=== PATIENT | male | born 1975 | race Caucasian/White ===

== ENCOUNTER 2016-11-25 10:21 | Emergency (ER) | payer OTHER, BC ==
[~2016-11-25 10:21] MED LIST: CYAN10005 PO; FLUT0.15 NAE; LCHC12280 TOP; LEVO-14 PO; MRLP17 PO; PHEN1TAB86 PO; [UNRECOGNIZED DRUG - CODE] OTB
[2016-11-25 10:30] VITALS: TEMP 37.1
--- NOTE | 2016-11-25 10:52 | EMERGENCY ROOM VISIT NOTE ---
History Report prepared by Tasia: Lucille Carter Under the Supervision of: Dr. Rao Ribeiro M.D. First contact with patient: 10:35 Chief Complaint: GI ASSESSMENT Stated Complaint: POSSIBLE BOWEL OBSTRUCTION Nursing Triage Summary: Triage note: pt presesnts with caregiver who reports pt has had left abd pain since this am. caregiver reports that pt has been having bowel and bladder incontience which is not normal for him. caregive reports pt has had hx of bowel obstructions. pt had stool incontinece this am. History of Present Illness The patient is a 41 year old male arriving from [facility] who presents to the Emergency Room with complaints as per caregiver of an exacerbation of pain to his left abdomen upon waking up this morning. Per caregiver, the patient recently visited the ED on November 03 and was admitted to the hospital as he was diagnosed with a bowel obstruction. During his visit, the patient was treated with enemas, and he has been taking MiraLAX since that time. Per caregiver, upon waking up this morning, the patient was incontinent of stool and was complaining of pains to his left abdomen, which she states is similar to when he experienced the bowel obstruction, so he was brought to the ED for further evaluation. Caregiver denies recent fevers, chills, chest pain, nausea, vomiting, or urinary symptoms. Source of History: caregiver Onset: earlier this morning Position: abdomen Timing: other (exacerbation) Modifying Factors (Relieving): other (No relief with MiraLAX) Associated Symptoms: + abdominal pain, No SOB, No chest pain, No chills, No fevers, No nausea, No urinary symptoms, No vomiting Note: Patient was incontinent of stool this morning. Review of Systems See HPI for pertinent positives & negatives. A total of 10 systems reviewed and were otherwise negative. Past Medical & Surgical Medical Problems: (1) Bowel obstruction (2) Fecal impaction (3) Obstipation Social History Smoking Status: Never Smoker Marital Status: single Housing Status: lives with roommate Occupation Status: disabled Current/Historical Medications Scheduled Carbamide Peroxide (Otic) (Ear Drops Earwax Removal), 5-10 DROPS OTB WK Cyanocobalamin (Vitamin B-12), 1,000 MCG PO DAILY Fluticasone Propionate (Nasal) (Flonase Allergy Relief), 1 SPRAY WOLFGANG DAILY Lactic Acid (Ammonium Lactate) (Ammonium Lactate), 1 APPLN TOP BID Levocetirizine Dihydrochloride (Levocetirizine Dihydrochl), 1 TAB PO DAILY Phenobarbital (Phenobarbital), 125.6 MG PO HS Polyethylene (Miralax), 17 GM PO BID Allergies Coded Allergies: NO KNOWN DRUG ALLERGIES (Verified Allergy, Unknown, `, 11/25/16) Physical Exam Vital Signs Date Time Temp Pulse Resp B/P Pulse Ox O2 Delivery O2 Flow Rate FiO2 11/25/16 12:39 80 18 130/85 100 11/25/16 10:30 37.1 73 18 123/83 99 Room Air Physical Exam GENERAL: Patient is a healthy-appearing well-nourished 41 year old male. HEAD: Normocephalic atraumatic EYES: Ocular movements intact pupils equal and react to light OROPHARYNX mucous membranes are moist no exudates present no erythema or edema present NECK: Supple no nuchal rigidity CHEST: Good equal expansion LUNGS: Clear and equal to auscultation CARDIAC: Normal S1 and S2 ABDOMEN: Soft nontender no guarding BACK: No CVA tenderness EXTREMITIES: No pain upon palpation normal muscle strength in all groups no clubbing cyanosis or edema NEURO: Patient is following commands is answering questions appropriately. Alert and oriented x3 Cranial Nerves 2-12 grossly intact Medical Decision & Procedures ER Provider Diagnostic Interpretation: X-ray results as stated below per interpretation by me and the radiologist: ABDOMEN 2VIEW W/PA CHEST RTN CLINICAL HISTORY: Small bowel obstruction COMPARISON STUDY: 11/05/2016 FINDINGS: The erect chest reveals no free intraperitoneal air. The heart is enlarged. There is bibasilar interstitial thickening. There is persistent but decreasing colonic distention. There is moderate fecal retention. There are scattered air-fluid levels on the erect study. IMPRESSION: 1. Persistent but decreasing gaseous distention of the colon 2. No free air identified 3. Fecal retention Electronically signed by: Hi June M.D. 11/25/2016 11:07 AM Dictated Date/Time: 11/25/2016 11:05 AM Medications Administered Medications (Trade) Dose Ordered Sig/Melva Route Start Time Stop Time Status Last Admin Dose Admin Magnesium Citrate (Citrate Of Magnesia Soln) 296 ml NOW STAT PO 11/25/16 12:10 11/25/16 12:11 DC 11/25/16 12:37 296 ML ED Course 1041: Past medical records reviewed. The patient was evaluated in room C3. A complete history and physical examination was performed. 1210: Magnesium Citrate 296 ml PO was ordered. 1215: Upon reevaluation, the patient was doing well and appeared to be resting more comfortably. I updated his caregiver on the results of his radiology reports. Discharge instructions were also discussed at this time. She verbalized her understanding and agreement with the treatment plan, and the patient is now ready for disposition. Medical Decision Differential diagnosis: Etiologies such as appendicitis, diverticulitis, PUD, biliary pathology, UTI, pancreatitis, obstruction, mesenteric ischemia, aortic pathology, infections, inflammatory bowel disease, renal colic, as well as others were entertained. This is a 41-year-old male who presents emergency department complaining of what appears to be abdominal discomfort. Serial abdominal examinations were performed on the patient while he was in the emergency department and no tended the patient exhibited a surgical abdomen or tenderness on examination. I had multiple talks with both the caregiver as well as the patient's father. As the patient has no evidence of small bowel obstruction on his x-ray we are going to attempt to try magnesium citrate to cleanout the patient. The patient will return if he develops abdominal pain or is unable to tolerate the magnesium citrate. I also stressed the need for follow-up with gastroenterology. Patient was in agreement with the treatment plan. Impression Primary Impression: Constipation Scribe Attestation The scribe's documentation has been prepared under my direction and personally reviewed by me in its entirety. I confirm that the note above accurately reflects all work, treatment, procedures, and medical decision making performed by me. Departure Information Dispostion Home / Self-Care Referrals Selam Cedillo C.R.N.P. (PCP) Forms HOME CARE DOCUMENTATION FORM, IMPORTANT VISIT INFORMATION Patient Instructions ED Constipation, ED Diet Clear Liquid, [facility] Additional Instructions Take 1/2 bottle of Mag Citrate Repeat second half in six hours Clear liquid diet next 48 hours Follow up with Dr Perrin's office You have been examined and treated today on an emergency basis only. This is not a substitute for, or an effort to provide, complete comprehensive medical care. It is impossible to recognize and treat all injuries or illnesses in a single emergency department visit. It is therefore important that you follow up closely with your PCP. Call as soon as possible for an appointment. Thank you for your time and consideration. I look forward to speaking with you again soon. Please don't hesitate to call us if you have any questions. Problem Qualifiers Primary Impression: Constipation Constipation type: unspecified constipation type Qualified Codes: K59.00 - Constipation, unspecified
--- NOTE | 2016-11-25 11:09 | DIAGNOSTIC IMAGING REPORT ---
ABDOMEN 2VIEW W/PA CHEST RTN CLINICAL HISTORY: Small bowel obstruction COMPARISON STUDY: 11/05/2016 FINDINGS: The erect chest reveals no free intraperitoneal air. The heart is enlarged. There is bibasilar interstitial thickening. There is persistent but decreasing colonic distention. There is moderate fecal retention. There are scattered air-fluid levels on the erect study. IMPRESSION: 1. Persistent but decreasing gaseous distention of the colon 2. No free air identified 3. Fecal retention Electronically signed by: Hi June M.D. 11/25/2016 11:07 AM Dictated Date/Time: 11/25/2016 11:05 AM
[2016-11-25] MEDS ORDERED: LACT12LO28 TOP (11:19)
[2016-11-25] MEDS ORDERED: MAGNESIUM CITRATE 296 ML/BTL PO STA (12:10)
[2016-11-25 12:39] VITALS: BP 130/85; PULSE 80; O2SAT 100
[2017-01-04] MEDS ORDERED: PHENOBARBITAL PO (13:53)
[2017-01-04] MEDS ORDERED: POLY335019 PO (13:53)
[2017-01-12] MEDS ORDERED: PRVDB TOP (09:01)
[2017-01-22] MEDS ORDERED: HYDR-5688 PO (08:25)
== END 2016-11-25 12:35 | disposition home or self-care (01) ==
LOC: C.EDB 10:23 → C.EDC 12:35
DX: K59.00 Constipation, unspecified (principal); Z79.899 Other long term (current) drug therapy

== ENCOUNTER → 2016-11-30 | Day surgery (SDC) | payer OTHER, BC ==
[~2016-11-30] VITALS: Ht 160 cm; Wt 93.0 kg
[~2016-11-30] MED LIST changes: +ENDOSCOPIC MARKER 5 ML SYR ONE; +HYDR-5688 PO; +LACT12LO28 TOP; -LCHC12280 TOP; +LIDOCAINE HCL 2% 2 ML VIAL (20MG/ML) ONE; +MIDAZOLAM HCL 1 MG/ML 2ML VIAL ONE; +ONDANSETRON INJ 2 MG/ML 2 ML VIAL ONE; +PHENOBARBITAL PO; +POLY335019 PO; +PROPOFOL IV EMULSION 10 MG/ML 20 ML VIAL IV ONE; +PRVDB TOP; +SODIUM CHLORIDE 0.9% 500ML 500 ML IV ONE
[2016-11-30 10:56] VITALS: Ht 160 cm; Wt 93.0 kg
--- NOTE | 2016-11-30 11:08 | Endo History and Physical ---
History & Physical Date of Service: Nov 30, 2016. Chief Complaint: Change in bowel habits Referring Physician: ANALILIA Kan History of Present Illness 41 yo CM who presents for colonoscopy secondary to change in bowel habits. Past Surgical History Hx Cardiac Surgery: No Hx Internal Defibrillator: No Hx Pacemaker: No Hx Abdominal Surgery: No Hx of Implantable Prosthesis: No Hx Post-Op Nausea and Vomiting: No Hx Cancer Surgery: No Hx Thoracic Surgery: No Hx Orthopedic: No Hx Urinary Tract Surgery: No Social History Smoking Status: Never Smoker Hx Alcohol Use: No Allergies Coded Allergies: NO KNOWN DRUG ALLERGIES (Verified Allergy, Unknown, `, 11/30/16) Current Medications Reported Home Medications Medications Dose Route/Sig Max Daily Dose Days Date Category Dose Instructions Ammonium Lactate (Lactic Acid (Ammonium Lactate)) 12 % Lot 1 Appln TOP BID 11/25/16 Reported Miralax (Polyethylene) 17 Gm Pow 17 Gm PO BID 30 11/05/16 Rx Take after meals. Vitamin B-12 (Cyanocobalamin) 1,000 Mcg Tab 1,000 Mcg PO DAILY 11/03/16 Reported Ear Drops Earwax Removal (Carbamide Peroxide (Otic)) 6.5 % Suzanne 5-10 Drops OTB WK 11/03/16 Reported Phenobarbital 60 Mg Tab 125.6 Mg PO HS 11/03/16 Reported Levocetirizine Dihydrochl (Levocetirizine Dihydrochloride) 5 Mg Tab 1 Tab PO DAILY 30 11/03/16 Reported Flonase Allergy Relief (Fluticasone Propionate (Nasal)) 50 Mcg/Act Spr 1 [place] WOLFGANG DAILY 11/03/16 Reported Vital Signs Weight (Kilograms): 93 Height (Feet): 5 Height (Inches): 3 Physical Exam General Appearance: WD/WN, no apparent distress Respiratory/Chest: Auscultation: breath sounds normal Cardiovascular: Heart Auscultation: RRR Abdomen: Bowel Sounds: normal Inspection & Palpation: soft, non-distended, no tenderness, guarding & rebound Assessment and Plan Assessment: 41 yo CM who presents for colonoscopy secondary to change in bowel habits. Plan: Proceed with colonoscopy.
[2016-11-30 11:16] VITALS: TEMP 36.6
--- NOTE | 2016-11-30 12:37 | GI REPORT ---
Procedure Date: 11/30/2016 11:35 AM Procedure: Colonoscopy Indications: Change in bowel habits Medicines: Monitored Anesthesia Care Complications: No immediate complications. Estimated Blood Loss: Estimated blood loss: none. Procedure: Pre-Anesthesia Assessment: - Prior to the procedure, a History and Physical was performed, and patient medications and allergies were reviewed. The patient's tolerance of previous anesthesia was also reviewed. The risks and benefits of the procedure and the sedation options and risks were discussed with the patient. All questions were answered, and informed consent was obtained. Prior Anticoagulants: The patient has taken no previous anticoagulant or antiplatelet agents. ASA Grade Assessment: II - A patient with mild systemic disease. After reviewing the risks and benefits, the patient was deemed in satisfactory condition to undergo the procedure. After I obtained informed consent, the scope was passed under direct vision. Throughout the procedure, the patient's blood pressure, pulse, and oxygen saturations were monitored continuously. The Scope was introduced through the anus and advanced to the terminal ileum. The colonoscopy was performed without difficulty. The patient tolerated the procedure well. The quality of the bowel preparation was fair. The ileocecal valve, appendiceal orifice, and rectum were photographed. Findings: A polypoid partially obstructing large mass was found at the hepatic flexure. The mass was non-circumferential. The mass measured three cm in length. In addition, its diameter measured twenty-five mm. No bleeding was present. This was biopsied with a cold forceps for histology. Area was tattooed with an injection of 5 mL of Geri ink. Impression: - Rule out malignancy, partially obstructing tumor at the hepatic flexure. Biopsied. Tattooed. Recommendation: - Resume previous diet. - Continue present medications. - Await pathology results. - Perform a CT scan (computed tomography) of chest with contrast, abdomen with contrast and pelvis with contrast at appointment to be scheduled. - Check liver enzymes (AST, ALT, alkaline phosphatase, bilirubin), hemogram with white blood cell count and platelets and CEA in the morning. - Refer to a surgeon at appointment to be scheduled. Stanton Guthrie DO 11/30/2016 12:37:30 PM This report has been signed electronically. Note Initiated On: 11/30/2016 11:35 AM
--- NOTE | 2016-11-30 12:47 | Discharge Instructions ---
Endoscopy Patient Instructions Date / Procedure(s) Performed Nov 30, 2016. Colonoscopy Allergy Information Coded Allergies: NO KNOWN DRUG ALLERGIES (Verified Allergy, Unknown, `, 11/30/16) Discharge Date / Findings Nov 30, 2016. Polypoid mass at hepatic flexure Medication Instructions Decrease Miralax to 17 g in 8 oz glass of water daily Otherwise, resume all medications today as prescribed. Reported Home Medications Medications Dose Route/Sig Max Daily Dose Days Date Category Dose Instructions Ammonium Lactate (Lactic Acid (Ammonium Lactate)) 12 % Lot 1 Appln TOP BID 11/25/16 Reported Miralax (Polyethylene) 17 Gm Pow 17 Gm PO BID 30 11/05/16 Rx Take after meals. Vitamin B-12 (Cyanocobalamin) 1,000 Mcg Tab 1,000 Mcg PO DAILY 11/03/16 Reported Ear Drops Earwax Removal (Carbamide Peroxide (Otic)) 6.5 % Suzanne 5-10 Drops OTB WK 11/03/16 Reported Phenobarbital 60 Mg Tab 125.6 Mg PO HS 11/03/16 Reported Levocetirizine Dihydrochl (Levocetirizine Dihydrochloride) 5 Mg Tab 1 Tab PO DAILY 30 11/03/16 Reported Flonase Allergy Relief (Fluticasone Propionate (Nasal)) 50 Mcg/Act Spr 1 [place] WOLFGANG DAILY 11/03/16 Reported Provider Instructions Activity Restrictions - No exercising or heavy lifting for 24 hours. - Do not drink alcohol the day of the procedure. - Do not drive a car or operate machinery until the day after the procedure. - Do not make any important decisions or sign important papers in 24 hours after the procedure. Following Day: - Return to full activity which may include returning to work/school. Diet Start your diet with liquids and light foods (jello, soup, juice, toast). Then eat your usual diet if not nauseated. Treatment For Common After Affects For mild abdominal pain, bloating, or excessive gas: - Rest - Eat lightly - Lie on right side Follow-Up Information Follow-up with Yocasta as scheduled Anesthesia Information What You Should Know You have had a procedure that required some medicine to reduce anxiety and discomfort. This treatment is called moderate sedation. After receiving the treatment, you may be sleepy, but you will be able to breathe on your own. The effects of the treatment may last for several hours. Follow these instructions along with Activity/Diet recommendations noted above: * Do NOT do anything where dizziness or clumsiness would be dangerous. * Rest quietly at home today, then you can be up and about tomorrow. * Have a responsible person stay with you the rest of today. * You may have had an I.V. today. If so, you may take the dressing off later today. Recommendations Call your doctor if: * Trouble breathing * Continuous vomiting for more than 24 hours * Temperature above 101 degrees * Severe abdominal pain or bloating * Pain not relieved by pain medicine ordered * There is increased drainage or redness from any incision * A large amount of rectal bleeding greater than 2-3 tablespoons. (If you had a polyp/s removed or have hemorrhoids, a small amount of blood - from the rectum is to be expected.) * You have any unanswered questions or concerns. IN THE EVENT OF A SERIOUS EMERGENCY, GO TO THE NEAREST EMERGENCY ROOM Your discharge instructions were prepared by provider Stanton Guthrie. Patient Instructions Signature Page Adan Myrick Patient (or Guardian) Signature/Date: I have read and understand the instructions given to me by my caregivers. Caregiver/RN/Doctor Signature/Date: The above-named patient and/or guardian has received patient instructions on this date. + Original Patient Signature Page (only) stays with chart. Please make copy for patient.
[2016-11-30 13:08] VITALS: BP 157/82; PULSE 61; O2SAT 100
[2016-11-30 14:40] LABS: BASO % 0.2 %; BASO ABS # 0.01 K/uL (0-0.2); COMPLETE YES; EOS % 1.7 %; HEMATOCRIT 36.1 % (42-52); IG% 0.2 %; LYMPH % 17.8 %; LYMPH ABS # 0.83 K/uL (1.2-3.4); MEAN CELL VOLUME 93.5 fL (80-100); MEAN CORPUSCULAR HEMOGLOBIN 31.3 pg (25-34); MEAN CORPUSCULAR HGB CONC 33.5 g/dl (32-36); MEAN PLATELET VOLUME 11.7 fL (7.4-10.4); NEUT % 74.1 %; PLATELET COUNT 138 K/uL (130-400); RED BLOOD COUNT 3.86 M/uL (4.7-6.1); WHITE BLOOD COUNT 4.65 K/uL (4.8-10.8)
--- NOTE | 2016-11-30 15:12 | Anesthesiology Progress Note ---
Anesthesia Post Op Note Date & Time Nov 30, 2016 at 15:12 Vital Signs Pain Intensity: 0 Vital Signs Past 12 Hours Date Time Temp Pulse Resp B/P Pulse Ox O2 Delivery O2 Flow Rate FiO2 11/30/16 13:08 61 20 157/82 100 Room Air 11/30/16 12:42 55 20 117/68 100 Room Air 11/30/16 12:27 62 20 106/68 98 Room Air 11/30/16 11:16 36.6 68 20 122/75 99 Room Air Notes Mental Status: alert / awake / arousable, participated in evaluation Pt Amnestic to Procedure: Yes Nausea / Vomiting: adequately controlled Pain: adequately controlled Airway Patency, RR, SpO2: stable & adequate BP & HR: stable & adequate Hydration State: stable & adequate Anesthetic Complications: no major complications apparent
[2016-11-30 15:17] LABS: CALCIUM 8.6 mg/dl (8.5-10.1); CREATININE 0.75 mg/dl (0.60-1.40); POTASSIUM 3.1 mmol/L (3.5-5.1)
[2016-11-30 15:20] LABS: ALB/GLOB RATIO 1.3 (0.9-2)
== END | disposition home or self-care (01) ==
LOC: C.GI 10:33
PROVIDERS: ATTEND Internal Medicine
DX: D12.3 Benign neoplasm of transverse colon (principal); R19.4 Change in bowel habit

== ENCOUNTER → 2016-12-01 | Outpatient (CLI) | payer OTHER, BC ==
[~2016-12-01] MED LIST changes: -ENDOSCOPIC MARKER 5 ML SYR ONE; -LIDOCAINE HCL 2% 2 ML VIAL (20MG/ML) ONE; -MIDAZOLAM HCL 1 MG/ML 2ML VIAL ONE; -ONDANSETRON INJ 2 MG/ML 2 ML VIAL ONE; -PROPOFOL IV EMULSION 10 MG/ML 20 ML VIAL IV ONE; -SODIUM CHLORIDE 0.9% 500ML 500 ML IV ONE
--- NOTE | 2016-12-01 13:13 | DIAGNOSTIC IMAGING REPORT ---
CT OF THE CHEST WITH IV CONTRAST CLINICAL HISTORY: Colon mass. COMPARISON STUDY: No previous studies for comparison. TECHNIQUE: Following the IV administration of 93 mL of Optiray-320, CT of the thorax was performed from the thoracic inlet to the lung bases. Images are reviewed in the axial, sagittal, and coronal planes. IV contrast was administered without complication. CT DOSE: FINDINGS: Thyroid: Imaged portions of the thyroid gland are normal in appearance. Thoracic aorta: The thoracic aorta is normal in course and caliber, noting standard 3-vessel arch anatomy. No aneurysm or dissection is seen. Pulmonary vasculature: The pulmonary trunk is normal in caliber. There are no central filling defects identified to suggest pulmonary embolus. Note that this examination was not protocoled for the evaluation of pulmonary emboli. HEART: The heart is the upper limits of normal in size. Lungs and pleural spaces: There is respiratory motion artifact. There are no pleural effusions. There is no focal pulmonary consolidation. Mediastinum: There is no mediastinal lymphadenopathy. Adri: Clear. Axilla: Clear. There is bilateral gynecomastia. Upper abdomen: There is an area of nonspecific colonic wall thickening at the level of the splenic flexure. There are upper pole right renal calculi. Skeletal structures: There are no lytic or blastic osseous lesions. IMPRESSION: 1. No evidence of intrathoracic metastasis 2. Right-sided nephrolithiasis 3. Nonspecific colonic wall thickening at the level of the splenic flexure. Electronically signed by: Hi June M.D. 12/01/2016 1:11 PM Dictated Date/Time: 12/01/2016 1:07 PM
--- NOTE | 2016-12-01 13:24 | DIAGNOSTIC IMAGING REPORT ---
CT SCAN OF THE ABDOMEN AND PELVIS WITH IV CONTRAST CLINICAL HISTORY: Colonic mass. COMPARISON STUDY: Abdominal radiograph dated 11/25/2016. TECHNIQUE: Following the IV administration of 93 cc of Optiray 320, CT scan of the abdomen and pelvis is performed from the lung bases to the proximal femora. Images are reviewed in the axial, sagittal, and coronal planes. IV contrast was administered without complication. Automated dose control exposure was utilized. The examination is degraded by motion artifact. CT DOSE: 1424.99 mGy.cm FINDINGS: Lung bases: The heart is enlarged and there is a trace pericardial effusion. The lung bases are clear. Gynecomastia is noted. There is a moderate hiatal hernia. Liver: The contrast-enhanced liver is normal in contour and attenuation. The left lobe appears atretic. There is no intrahepatic biliary ductal dilatation. The hepatic veins and portal veins are patent. Gallbladder: Unremarkable. Spleen: Normal in size and attenuation. Pancreas: Atrophic for age. Adrenal glands: Unremarkable. Kidneys: The contrast enhanced kidneys the major cortical atrophy and are without hydronephrosis. The kidneys enhance symmetrically. Abdominal vasculature: The abdominal aorta is normal in course and caliber. Bowel: The cecum is located in the mid abdomen. There is no small bowel obstruction. There is liquid stool seen throughout the colon. A 3.6 x 3.3 cm mass is suspected in the ascending colon just below the hepatic flexure. This is best seen on axial image #182. Small pericolonic lymph nodes in the right upper quadrant measure up to 7 mm axial image #173. Circumferential rectal wall thickening is suggested. No perirectal inflammation is seen. The appendix is not identified and reported surgically absent. Peritoneum: There is no intraperitoneal free air or abdominal ascites. Lymphadenopathy: None. Pelvic viscera: The the bladder wall appears circumferentially thickened. There is a calcification identified both the bladder along the course of the urachus. The prostate and seminal vesicles are normal as visualized. There is a small fat-containing right inguinal hernia. Skeletal structures: 6 the skeletal structures appear osteopenic. Bilateral pars defects are seen at L5. No lytic or blastic lesions are identified. IMPRESSION: 1. Motion degraded examination. 2. A 3.6 cm mass lesion is suggested in the ascending colon just below the hepatic flexure with mildly enlarged surrounding pericolonic lymph nodes. Correlation with endoscopy results will be required. 3. There is no evidence of distended metastatic disease in the abdomen or pelvis. 4. There is no evidence of colonic obstruction of the time of examination. 5. Liquid stool is seen throughout the colon and circumferential rectal wall thickening is suspected. Correlate clinically for evidence of a diarrheal illness/proctitis. Again, correlation with endoscopy results will be required. 6. Moderate hiatal hernia. 7. Cardiomegaly. 8. Additional changes as above. Electronically signed by: Beto Jimenez M.D. 12/01/2016 1:22 PM Dictated Date/Time: 12/01/2016 1:10 PM
== END | disposition home or self-care (01) ==
LOC: C.CTS 10:48
PROVIDERS: ATTEND Internal Medicine
DX: K63.9 Disease of intestine, unspecified (principal); R93.3 Abnormal findings on diagnostic imaging of other parts of digestive tract; K44.9 Diaphragmatic hernia without obstruction or gangrene; I51.7 Cardiomegaly; N20.0 Calculus of kidney

== ENCOUNTER 2017-01-18 05:03 | Inpatient (IN) | payer OTHER, BC ==
[2017-01-04 13:32] VITALS: BMI 37.0
--- NOTE | 2017-01-04 14:04 | PAT Medication Instructions ---
Service Date Jan 04, 2017. Current Home Medication List Carbamide Peroxide (Otic) (Ear Drops Earwax Removal), 5-10 DROPS OTB WK Cyanocobalamin (Vitamin B-12), 1,000 MCG PO QAM Fluticasone Propionate (Nasal) (Flonase Allergy Relief), 1 SPRAY WOLFGANG QAM Lactic Acid (Ammonium Lactate) (Ammonium Lactate), 1 APPLN TOP BID Levocetirizine Dihydrochloride (Levocetirizine Dihydrochl), 1 TAB PO QAM Polyethylene Glycol 3350 (Miralax), 17 GM PO QAM [Phenobarbital], 129.6 MG PO HS Medication Instructions For Your Scheduled Surgery Carbamide Peroxide (Otic) (Ear Drops Earwax Removal), 5-10 DROPS OTB WK ( continue as usual) - Hold the following medications 24 hours prior to surgery: Lactic Acid (Ammonium Lactate) (Ammonium Lactate), 1 APPLN TOP BID - Hold the following medications the morning of surgery: Polyethylene Glycol 3350 (Miralax), 17 GM PO QAM Cyanocobalamin (Vitamin B-12), 1,000 MCG PO QAM Dihydrochloride (Levocetirizine Dihydrochl), 1 TAB PO QAM - Take the following medications the morning of surgery with a sip of water: Fluticasone Propionate (Nasal) (Flonase Allergy Relief), 1 SPRAY WOLFGANG QAM - Take the following medications as scheduled the night before surgery: [Phenobarbital], 129.6 MG PO HS If you have any questions please call us at [phone] or [phone] or [phone]
[2017-01-06 11:22] LABS: BUN/CREATININE RATIO 17.4 (10-20); CREATININE 0.81 mg/dl (0.60-1.40)
[~2017-01-18] VITALS: Ht 162.6 cm; Wt 90.0 kg
[2017-01-18] VITALS (9 sets, daily range): BP systolic 97–128; BP diastolic 62–81; PULSE 56–88; TEMP 36.5–37; O2SAT 91–97; Ht 162.6 cm; Wt 90.0 kg
[~2017-01-18 05:03] MED LIST changes: -HYDR-5688 PO; -MRLP17 PO; -PHEN1TAB86 PO
[2017-01-18] MEDS ORDERED: LACTATED RINGER'S 1000ML IV SCH (06:00)
[2017-01-18] MEDS ORDERED: CEFAZOLIN 2000 MG/60 ML D5W 60 ML IV SCH (06:00)
[2017-01-18] MEDS ORDERED: ACETAMINOPHEN 1000 MG/100 ML IV IV ONE (06:06)
[2017-01-18] MEDS: LACTATED RINGER'S 1000ML 1,000 ML IV SCH ×4 (06:07→20:08)
[2017-01-18] MEDS: HEPARIN SOD 5000 UNIT/0.5 ML CARP SQ SCH ×2 (06:09→13:00)
[2017-01-18] MEDS ORDERED: GLYCOPYRROLATE INJ 0.2 MG/ML VIAL ONE (06:18)
[2017-01-18] MEDS ORDERED: SUCCINYLCHOLINE CHLORIDE 20 MG/ML 10 ML VIAL IV ONE (06:18)
[2017-01-18] MEDS ORDERED: DEXAMETHASONE SOD INJ 4 MG/ML VIAL ONE (06:18)
[2017-01-18] MEDS ORDERED: ONDANSETRON INJ 2 MG/ML 2 ML VIAL ONE (06:18)
[2017-01-18] MEDS ORDERED: FENTANYL CITRATE INJ 50 MCG/1 ML 2 ML VIAL ONE (06:18)
[2017-01-18] MEDS ORDERED: ROCURONIUM BROMIDE 10 MG/ML 5 ML VIAL ONE ×2 (06:18→07:55)
[2017-01-18] MEDS ORDERED: NEOSTIGMINE METHYLSULFATE 5 MG/5 ML SYR ONE (06:18)
[2017-01-18] MEDS ORDERED: MIDAZOLAM HCL 1 MG/ML 2ML VIAL ONE (06:18)
[2017-01-18] MEDS ORDERED: PHENYLEPHRINE HCL INJ 10 MG/ML VIAL ONE (06:18)
[2017-01-18] MEDS ORDERED: EpHEDrine SULFATE INJ 50 MG/ML AMP ONE (06:18)
[2017-01-18] MEDS ORDERED: PROPOFOL IV EMULSION 10 MG/ML 20 ML VIAL IV ONE ×2 (06:18→07:55)
[2017-01-18] MEDS ORDERED: LIDOCAINE HCL 2% 2 ML VIAL (20MG/ML) ONE (06:18)
[2017-01-18] MEDS ORDERED: BUPIVACAINE/EPINEPHRINE 0.5% MPF 1:200,000 30 ML VIAL ONE (06:52)
--- NOTE | 2017-01-18 06:59 | History and Physical ---
History & Physical Date Jan 18, 2017. Chief Complaint right colon mass History of Present Illness The patient is a 41 year old male with newly found right colon mass on endoscopy. has been having some diarrhea and fecal incontinence which may be unrelated. Past Medical/Surgical History Medical Problems: (1) Bowel obstruction (2) Fecal impaction (3) Obstipation Additional History Hepatic Disease: No Endocrine Disorder: No Kidney Disease: No Hypertension: No Heart Disease: No Bleeding Tendencies: No Infectious Diseases: No Allergies Coded Allergies: Brompheniramine (Unverified Allergy, Unknown, UNKNOWN, 01/18/17) Phenylpropanolamine (Unverified Allergy, Unknown, UNKNOWN, 01/18/17) Home Medications Scheduled Carbamide Peroxide (Otic) (Ear Drops Earwax Removal), 5-10 DROPS OTB WK Cyanocobalamin (Vitamin B-12), 1,000 MCG PO QAM Fluticasone Propionate (Nasal) (Flonase Allergy Relief), 1 SPRAY [place] QAM Lactic Acid (Ammonium Lactate) (Ammonium Lactate), 1 APPLN TOP BID Levocetirizine Dihydrochloride (Levocetirizine Dihydrochl), 1 TAB PO QAM Polyethylene Glycol 3350 (Miralax), 17 GM PO QAM Sodium Fluoride (Prevident 5000 Booster), 1 DOSE TOP BID [Phenobarbital], 129.6 MG PO HS Physical Examination Skin: warm/dry Eyes: normal inspection Head: normocephalic Respiratory/Chest: lungs clear Cardiovascular: regular rate, rhythm, no edema Abdomen / GI: non tender Extremities: normal inspection Neurologic/Psych: + pertinent finding (moderated MR) Diagnosis right colon mass Plan of Treatment laparoscopic /possible open right hemicolectomy. discussed with family risks ( bleeding/infection/dvt/pe/leaks/possible return to OR etc...)...answered questions. ok to proceed
[2017-01-18] MEDS ORDERED: HYDROmorphone INJ 2 MG/ML SYR/VIAL IV PRN (07:15)
[2017-01-18] MEDS ORDERED: ATROPINE SULFATE 0.1 MG/ML 5ML SYR IV PRN (07:15)
[2017-01-18] MEDS ORDERED: EpHEDrine SULFATE INJ 50 MG/ML AMP IV PRN (07:15)
[2017-01-18] MEDS ORDERED: PHENYLEPHRINE 100MCG/ML 5ML SYR IV PRN (07:15)
[2017-01-18] MEDS ORDERED: ONDANSETRON INJ 2 MG/ML 2 ML VIAL IV PRN ×2 (07:15→10:15)
[2017-01-18] MEDS ORDERED: HYDROmorphone INJ 2 MG/ML SYR/VIAL ONE (07:45)
--- NOTE | 2017-01-18 10:05 | Medical Student: [facility] ---
Immediate Operative Summary Operative Date Jan 18, 2017. Pre-Operative Diagnosis colonic mass at hepatic flexure Post-Operative Diagnosis 1. colonic mass at hepatic flexure 2. dilated left colon Procedure(s) Performed laparoscopic right hemicolectomy converted to open hemicolectomy with ileocolonic anastamosis Surgeon Dr. Henderson [employer] Surgeon(s) none Estimated Blood Loss 25cc Findings decompressed transverse colon with dilated left colon, colonic adhesions Specimens terminal ileum, right colon, and partial transverse colon Anesthesia general Complication(s) None Disposition Recovery Room / PACU
--- NOTE | 2017-01-18 10:08 | [facility] Operative Report ---
Operative Report Operative Date Jan 18, 2017. Pre-Operative Diagnosis Nonspecific Colonic Wall Thickening At the Level of Spenic Flexure;hepatic flexure mass Post-Operative Diagnosis 1. hepatic flexure mass ( tattoo) 2. markedly abnormal anatomy/atonic colon Procedure(s) Performed laparoscopy/converted to open right hemicolectomy Surgeon Creative Consultant Surgeon(s) None Estimated Blood Loss 25ML Findings see op note. abnormal anatomy/atonic colon no evidence of metastatic disease Specimens A. Terminal Ilium, Right Colon, Partial Transverse Colon Anesthesia get Complication(s) None Disposition Recovery Room / PACU I attest to the content of the Intraoperative Record and any orders documented therein. Any exceptions are noted below.
[2017-01-18] MEDS ORDERED: CEFAZOLIN SOD 1000MG/55 ML D5W IV SCH (10:15)
[2017-01-18] MEDS ORDERED: IBUPROFEN 600 MG TAB PO PRN (10:15)
[2017-01-18] MEDS ORDERED: MoRPHine SULFATE 4 MG/ML 1 ML CARP\\VIAL IV PRN (10:15)
[2017-01-18] MEDS ORDERED: MoRPHine SULFATE 10 MG/ML CARP/VIAL IV PRN (10:15)
[2017-01-18] MEDS ORDERED: OXYCODONE HCL IR 5 MG TAB (IMMEDIATE RELEASE) PO PRN (10:15)
[2017-01-18] MEDS ORDERED: ACETAMINOPHEN IV 100 ML IV PRN (10:15)
--- NOTE | 2017-01-18 13:04 | Anesthesiology Progress Note ---
Anesthesia Post Op Note Date & Time Jan 18, 2017 at 13:04 Vital Signs Pain Intensity: 0 Vital Signs Past 12 Hours Date Time Temp Pulse Resp B/P Pulse Ox O2 Delivery O2 Flow Rate FiO2 01/18/17 12:45 36.5 56 16 97/62 91 Nasal Cannula 3.0 01/18/17 12:29 55 18 96/61 95 Nasal Cannula 3 01/18/17 12:20 59 16 99/66 93 Nasal Cannula 3 01/18/17 12:10 53 16 96/51 92 Nasal Cannula 3 01/18/17 12:00 56 16 94/56 93 Nasal Cannula 3 01/18/17 11:50 46 16 96/55 92 Mask 5 01/18/17 11:40 51 16 92/57 92 Mask 5 01/18/17 11:30 49 16 93/54 92 Mask 5 01/18/17 11:20 47 16 92/53 91 Mask 5 01/18/17 11:10 53 16 96/54 90 Mask 5 01/18/17 11:00 57 16 96/54 90 Mask 5 01/18/17 10:50 66 20 102/64 94 Mask 5 01/18/17 10:40 51 20 101/62 91 Mask 5 01/18/17 10:30 36.4 64 21 109/69 93 Mask 5 01/18/17 10:20 52 20 101/60 93 Mask 10 01/18/17 10:10 64 16 116/72 96 Mask 10 01/18/17 10:00 70 18 114/66 96 Mask 10 01/18/17 09:54 36.0 66 18 124/78 97 Mask 10 01/18/17 05:49 36.5 86 20 128/81 97 Room Air Notes Mental Status: alert / awake / arousable, participated in evaluation Pt Amnestic to Procedure: Yes Nausea / Vomiting: adequately controlled Pain: adequately controlled Airway Patency, RR, SpO2: stable & adequate BP & HR: stable & adequate Hydration State: stable & adequate Anesthetic Complications: no major complications apparent
[2017-01-18] MEDS: CEFAZOLIN 2000 MG/60 ML D5W 60 ML IV SCH ×2 (13:52→21:54)
[2017-01-18 14:35] LABS: INR 1.1 (0.9-1.1); PROTHROMBIN TIME (PATIENT) 11.9 SECONDS (9.0-12.0)
--- NOTE | 2017-01-18 16:19 | OPERATIVE REPORT ---
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 PROCEDURE PERFORMED: Laparoscopy with conversion to open, right hemicolectomy with ileocolonic anastomosis. SURGEON: Dr. Henderson. ESTIMATED BLOOD LOSS: Approximately 50 mL. COMPLICATIONS: No immediate. ANESTHESIA: General. The patient tolerated the procedure well. OPERATIVE NOTE: After informed consent was obtained, the patient taken to the operating suite and placed in supine position. After successful intubation, a Faustin catheter was placed and the abdomen was shaved and sterilely prepped and draped in usual fashion. A periumbilical incision was made with an 11 blade scalpel and carried down through the soft tissue using electrocautery. The anterior rectus fascia was opened using electrocautery and two #0 Vicryl stay sutures were placed. Peritoneum was entered using blunt finger penetration. A finger sweep was performed. A 12 mm Chika trocar was placed and the abdomen was insufflated to 20 mmHg. Laparoscope was inserted. We immediately noted markedly abnormal anatomy. His entire colon was massively dilated, consistent with atonic colon. The area of tattooing by the endoscopist could be seen in the left lower quadrant, even though it was a hepatic flexure lesion. It was very difficult to get enough room in the abdominal cavity to clearly see his anatomy. I quickly made the decision to convert this to an open procedure due to inadequate visualization. We removed the trocar and made a small midline incision from the trocar site up around the umbilicus. As soon as we opened the fascia and peritoneum using electrocautery, the large portion of the colon popped out of the incision. All the anatomy was completely distorted from this chronic dilation. In fact, some of the patient's symptoms preoperatively may have been from intermittent volvulization of some of his colon. The entire right colon, cecum, appendix, etc. were completely free from the right sidewall and were completely floppy. The cecum as previously mentioned was in the left lower quadrant and the hepatic flexure was in the left mid abdomen. There was then a small section of normal caliber transverse colon, followed by massively dilated splenic flexure and left colon down to the rectum. I was able to clearly see several areas of tattooing which did correlate to the hepatic flexure portion of the colon. I was unable to palpate any abnormal lymphadenopathy. I did not appreciate any abnormality on the liver itself. We saw no evidence of peritoneal seeding or other metastatic disease. I began by transecting the terminal ileum. We did this with a KIN polanco cartridge stapler. I really did not have to do much mobilizing at all, as again it was completely floppy and free from the right lower quadrant sidewall. I was able to free up the transverse colon from some surrounding small bowel using primarily blunt dissection. I then transected the transverse colon just proximal to the middle colic vessels which I could palpate. We then transected the colon with a KIN polanco cartridge stapler in this location, which was probably about 7 cm away from the tattoo ink. I then used a LigaSure device to take down the colonic mesentery. We then passed off the colon as the specimen. The decision was now whether to take the very large floppy atonic left colon or not. I scrubbed out of the case and went and spoke to the family in the waiting room about options versus possible outcomes. The patient did have bouts of intermittent constipation and fecal incontinence already; however, this was not really new to them and they described the symptoms as minimal. As much colon as we took for the mass, if I had to take the dilated left colon, that would leave him with a very small amount of colon left, which might render him with even worse incontinence or liquid stool. They were aware that if we left the large atonic colon, that he may have trouble in the future and may require some additional procedures and/or surgery. They were okay with this risk and would prefer that I not take anymore colon than necessary for the mass itself. I then scrubbed back into the case. We performed a [id number] small bowel to transverse colon anastomosis using a KIN polanco stapler. A TA 60 device was then used to close the common enterotomy. Once we had the anastomosis, I did oversew the staple lines with 3-0 silk in Lembert fashion. I also placed 3-0 silk as a crotch stitch. I closed the mesenteric defect using 2-0 Vicryl in a running fashion. The anastomosis was tension free and had good blood supply with no ischemia. None of the bowel was twisted. The stoma itself was widely patent. We did thoroughly irrigate the wound. I saw no other abnormalities other than the dilated colon. We then placed all the bowel back into the abdominal cavity and elevated the fascia with Mateo clamps. We used a Fish device to keep the bowel inside while we performed the closure. I used #1 PDS, starting at either pole, running them and securing them together in the midline to close the fascia. Soft tissue was irrigated and closed using 2-0 Vicryl, 3-0 Vicryl and 4-0 Monocryl on the skin. Sterile Op-Site dressing was applied. The patient was awakened and transferred to recovery in stable condition. I attest to the content of the Intraoperative Record and any orders documented therein. Any exceptio ns are noted below.
[2017-01-18] MEDS ORDERED: NURSING VERBAL MED ORDER ONE ×2 (19:45→21:00)
[2017-01-18] MEDS: PHENOBARBITAL 32.4 MG TAB PO SCH (20:44)
[2017-01-18] MEDS: ENOXAPARIN 40 MG/0.4 ML SYR SQ SCH (20:59)
[2017-01-19 03:30] VITALS: BP 93/53; PULSE 83; TEMP 37.1; O2SAT 95
[2017-01-19] MEDS: LACTATED RINGER'S 1000ML 1,000 ML IV SCH ×3 (03:41→20:51)
[2017-01-19] MEDS: CEFAZOLIN 2000 MG/60 ML D5W 60 ML IV SCH (05:38)
[2017-01-19 07:07] LABS: COMPLETE YES; EOS % 0.1 %; HEMATOCRIT 32.8 % (42-52); IG% 0.3 %; LYMPH % 6.6 %; LYMPH ABS # 0.68 K/uL (1.2-3.4); MEAN CELL VOLUME 93.2 fL (80-100); MEAN CORPUSCULAR HEMOGLOBIN 31.8 pg (25-34); MEAN CORPUSCULAR HGB CONC 34.1 g/dl (32-36); MEAN PLATELET VOLUME 11.2 fL (7.4-10.4); MONO % 3.8 %; NEUT % 89.2 %; PLATELET COUNT 109 K/uL (130-400); RED BLOOD COUNT 3.52 M/uL (4.7-6.1); WHITE BLOOD COUNT 10.32 K/uL (4.8-10.8)
[2017-01-19 07:24] VITALS: BP 120/75; PULSE 80; TEMP 36.9; O2SAT 94
[2017-01-19 07:36] LABS: BUN/CREATININE RATIO 14.3 (10-20); CREATININE 0.8 mg/dl (0.60-1.40); POTASSIUM 3.9 mmol/L (3.5-5.1)
--- NOTE | 2017-01-19 07:56 | Anesthesiology Progress Note ---
Anesthesia Post Op Note Date & Time Jan 19, 2017 at 07:56 Vital Signs Pain Intensity: 0.0 Vital Signs Past 12 Hours Date Time Temp Pulse Resp B/P Pulse Ox O2 Delivery O2 Flow Rate FiO2 01/19/17 07:24 36.9 80 16 120/75 94 Nasal Cannula 3.0 01/19/17 07:10 Nasal Cannula 3.0 01/19/17 03:30 37.1 83 16 93/53 95 Nasal Cannula 3.0 01/18/17 23:22 Nasal Cannula 3.0 01/18/17 22:55 36.8 75 16 102/63 96 Nasal Cannula 3.0 01/18/17 20:56 Nasal Cannula 3.0 Notes Mental Status: alert / awake / arousable, participated in evaluation Pt Amnestic to Procedure: Yes Nausea / Vomiting: adequately controlled Pain: adequately controlled Airway Patency, RR, SpO2: stable & adequate BP & HR: stable & adequate Hydration State: stable & adequate Anesthetic Complications: no major complications apparent
[2017-01-19] MEDS: OXYCODONE HCL IR 5 MG TAB (IMMEDIATE RELEASE) PO PRN (08:32)
[2017-01-19 12:29] VITALS: BP 141/96; PULSE 89; TEMP 36.9; O2SAT 93
[2017-01-19 15:29] VITALS: BP 120/88; PULSE 74; TEMP 36.9; O2SAT 97
[2017-01-19] MEDS: PHENOBARBITAL 32.4 MG TAB PO SCH (20:52)
[2017-01-19] MEDS: ENOXAPARIN 40 MG/0.4 ML SYR SQ SCH (20:58)
[2017-01-19 23:00] VITALS: BP 108/65; PULSE 76; TEMP 37; O2SAT 99
[2017-01-19 23:20] VITALS: O2SAT 99
[2017-01-20] VITALS (10 sets, daily range): BP systolic 92–128; BP diastolic 55–82; PULSE 72–132; TEMP 36.4–37.3; O2SAT 96–100
--- NOTE | 2017-01-20 02:58 | Medical Consult ---
Consultation Date of Consultation: Jan 20, 2017. Attending Physician: Mustapha Henderson D.O. Reason for Consultation: Tachycardia / EKG changes History of Present Illness Mr Myrick is day 1 s/p R open hemicolectomy with ileocolonic anastamosis by Dr Henderson. He did well postoperatively but overnight had a 10 minute period of being tachycardic, ranging from 103-132. This coincided when he haf a low grade fever as well. He denied any chest pain or shortness of breath at that time. He has a background of autism and his baseline is mildly confused, which he was when I saw him as well. Past Medical/Surgical History (1) Bowel obstruction (2) Fecal impaction (3) Obstipation Seizures, though has not had one for many years Family History No pertinent FHx Social History Smoking Status: Never Smoker Marital Status: single Housing Status: lives with roommate Occupation Status: disabled Allergies Coded Allergies: Brompheniramine (Verified Allergy, Unknown, UNKNOWN, 01/18/17) Phenylpropanolamine (Verified Allergy, Unknown, UNKNOWN, 01/18/17) Current Inpatient Medications Current Inpatient Medications Medications (Trade) Dose Ordered Sig/Melva Route Start Time Stop Time Status Last Admin Dose Admin Lactated Ringer's 1,000 ml @ 125 mls/hr Q8H IV 01/18/17 13:30 02/17/17 13:29 01/19/17 20:51 125 MLS/HR Acetaminophen (Ofirmev Iv) 100 ml @ 400 mls/hr Q8H PRN IV 01/18/17 10:15 02/17/17 10:14 01/20/17 02:17 400 MLS/HR Ibuprofen (Motrin Tab) 600 mg Q6H PRN PO 01/18/17 10:15 02/17/17 10:14 Oxycodone HCl (Roxicodone Immediate Rel Tab) 5 mg Q4H PRN PO 01/18/17 10:15 02/01/17 10:14 01/19/17 08:32 5 MG Morphine Sulfate (MoRPHine SULFATE INJ) 3 mg Q3H PRN IV 01/18/17 10:15 02/01/17 10:14 Oxycodone HCl (Roxicodone Immediate Rel Tab) 10 mg Q4H PRN PO 01/18/17 10:15 02/01/17 10:14 01/18/17 15:12 10 MG Morphine Sulfate (MoRPHine SULFATE INJ) 5 mg Q3H PRN IV 01/18/17 10:15 02/01/17 10:14 Ondansetron HCl (Zofran Inj) 4 mg Q6H PRN IV 01/18/17 10:15 02/17/17 10:14 Enoxaparin Sodium (Lovenox Inj) 40 mg Q24H SQ 01/18/17 21:00 02/17/17 10:14 01/19/17 20:58 40 MG Phenobarbital (Phenobarbital Tab) 129.6 mg HS PO 01/18/17 20:00 02/17/17 19:59 01/19/17 20:52 129.6 MG Review of Systems A ROS was unable to be completed due to his mental status. Physical Exam Date Time Temp Pulse Resp B/P Pulse Ox O2 Delivery O2 Flow Rate FiO2 01/20/17 01:17 37.3 89 16 101/68 100 Nasal Cannula 3.0 01/20/17 01:08 114 01/20/17 01:03 105 01/20/17 01:00 132 01/19/17 23:20 99 Nasal Cannula 3.0 01/19/17 23:00 37.0 76 17 108/65 99 Nasal Cannula 3.0 01/19/17 15:29 36.9 74 18 120/88 97 Nasal Cannula 3.0 01/19/17 15:20 Nasal Cannula 3.0 01/19/17 12:29 36.9 89 18 141/96 93 Room Air 3.0 01/19/17 07:24 36.9 80 16 120/75 94 Nasal Cannula 3.0 01/19/17 07:10 Nasal Cannula 3.0 01/19/17 03:30 37.1 83 16 93/53 95 Nasal Cannula 3.0 General Appearance: WD/WN, no apparent distress Head: normocephalic, atraumatic Eyes: normal inspection, PERRL ENT: hearing grossly normal Neck: supple, no JVD Respiratory/Chest: lungs clear, normal breath sounds, no respiratory distress Cardiovascular: regular rate, rhythm, no murmur, normal peripheral pulses Abdomen/GI: normal bowel sounds, non tender, soft Back: no CVA tenderness, no muscle spasm Extremities/Musculoskelatal: no calf tenderness, no pedal edema Neurologic/Psych: alert, + disoriented Laboratory Results Last 24 Hours Test 01/19/17 06:58 White Blood Count 10.32 K/uL Red Blood Count 3.52 M/uL Hemoglobin 11.2 g/dL Hematocrit 32.8 % Mean Corpuscular Volume 93.2 fL Mean Corpuscular Hemoglobin 31.8 pg Mean Corpuscular Hemoglobin Concent 34.1 g/dl Platelet Count 109 K/uL Mean Platelet Volume 11.2 fL Neutrophils (%) (Auto) 89.2 % Lymphocytes (%) (Auto) 6.6 % Monocytes (%) (Auto) 3.8 % Eosinophils (%) (Auto) 0.1 % Basophils (%) (Auto) 0.0 % Neutrophils # (Auto) 9.21 K/uL Lymphocytes # (Auto) 0.68 K/uL Monocytes # (Auto) 0.39 K/uL Eosinophils # (Auto) 0.01 K/uL Basophils # (Auto) 0.00 K/uL RDW Standard Deviation 46.5 fL RDW Coefficient of Variation 13.8 % Immature Granulocyte % (Auto) 0.3 % Immature Granulocyte # (Auto) 0.03 K/uL Sodium Level 143 mmol/L Potassium Level 3.9 mmol/L Chloride Level 110 mmol/L Carbon Dioxide Level 27 mmol/L Anion Gap 6.0 mmol/L Blood Urea Nitrogen 11 mg/dl Creatinine 0.80 mg/dl Est Creatinine Clear Calc Drug Dose 121.7 ml/min Estimated GFR () 127.7 Estimated GFR (Non- 110.2 BUN/Creatinine Ratio 14.3 Random Glucose 116 mg/dl Calcium Level 8.0 mg/dl EKbpm, NSR, Significant artifact present Assessment & Plan Post-op tachycardia coinciding with fever - other differentials include arrythmia, electrolyte abnormality. Resolved with IV Tylenol. Recommendations: If occurs again, would transfer to telemetry for cardiac monitoring Thank you for allowing us to participate in the care of this patient. We will continue to follow. Resident Physician Supervision Note: I was present with [Name of resident] during the history and exam. I discussed the case with the resident and agree with the findings and plan as documented in the note. Any exceptions or clarifications are listed here: Pt is post-op hemicolectomy for a mass Became tachycardic post-op however this coincided with fever Reverted to normal rate with Tylenol OE Pt is minimally communicative and appeared anxious S1,2 R CTAB no C/C/E P: Monitor for tachycardia - EKG if recurs Transfer to tele if pt is tachy for extended period without temp or for non- sinus tach Documented By: Nick Jeffery Resident Tracking Resident Involvement: Resident Care Provided Care Provided: Adult Hospital Medicine
[2017-01-20] MEDS: LACTATED RINGER'S 1000ML 1,000 ML IV SCH ×3 (04:06→19:49)
[2017-01-20 07:24] LABS: BASO % 0.1 %; BASO ABS # 0.01 K/uL (0-0.2); COMPLETE YES; EOS % 0.4 %; HEMATOCRIT 31.4 % (42-52); IG% 0.2 %; LYMPH % 9.6 %; LYMPH ABS # 0.78 K/uL (1.2-3.4); MEAN CELL VOLUME 91.3 fL (80-100); MEAN CORPUSCULAR HEMOGLOBIN 31.4 pg (25-34); MEAN CORPUSCULAR HGB CONC 34.4 g/dl (32-36); MEAN PLATELET VOLUME 11.3 fL (7.4-10.4); MONO % 4.9 %; NEUT % 84.8 %; PLATELET COUNT 109 K/uL (130-400); RED BLOOD COUNT 3.44 M/uL (4.7-6.1); WHITE BLOOD COUNT 8.16 K/uL (4.8-10.8)
[2017-01-20 07:55] LABS: BUN/CREATININE RATIO 14.1 (10-20); CALCIUM 8.3 mg/dl (8.5-10.1); CREATININE 0.58 mg/dl (0.60-1.40); POTASSIUM 3.7 mmol/L (3.5-5.1)
--- NOTE | 2017-01-20 08:43 | Surgery Progress Note ---
Surgery Progress Note Date of Service Jan 20, 2017. Subjective Post OP Day: 2 pt denying pain. per nursing was ambulating in hallway yesterday. per nursing no bm yet. Objective Vital Signs: Date Time Temp Pulse Resp B/P Pulse Ox O2 Delivery O2 Flow Rate FiO2 01/20/17 07:03 36.4 72 16 92/55 96 Room Air 01/20/17 02:45 36.8 01/20/17 01:17 37.3 89 16 101/68 100 Nasal Cannula 3.0 01/20/17 01:08 114 01/20/17 01:03 105 01/20/17 01:00 132 01/19/17 23:20 99 Nasal Cannula 3.0 01/19/17 23:00 37.0 76 17 108/65 99 Nasal Cannula 3.0 01/19/17 15:29 36.9 74 18 120/88 97 Nasal Cannula 3.0 01/19/17 15:20 Nasal Cannula 3.0 01/19/17 12:29 36.9 89 18 141/96 93 Room Air 3.0 General Appearance: no apparent distress Head: normocephalic Neck: supple Abdomen: non distended, soft Incision(s): clean, dry, intact, no erythema Extremities: non-tender Laboratory Results: Results Past 24 Hours Test 01/20/17 07:00 Range/Units White Blood Count 8.16 4.8-10.8 K/uL Red Blood Count 3.44 4.7-6.1 M/uL Hemoglobin 10.8 14.0-18.0 g/dL Hematocrit 31.4 42-52 % Mean Corpuscular Volume 91.3 80-100 fL Mean Corpuscular Hemoglobin 31.4 25-34 pg Mean Corpuscular Hemoglobin Concent 34.4 32-36 g/dl Platelet Count 109 130-400 K/uL Mean Platelet Volume 11.3 7.4-10.4 fL Neutrophils (%) (Auto) 84.8 % Lymphocytes (%) (Auto) 9.6 % Monocytes (%) (Auto) 4.9 % Eosinophils (%) (Auto) 0.4 % Basophils (%) (Auto) 0.1 % Neutrophils # (Auto) 6.92 1.4-6.5 K/uL Lymphocytes # (Auto) 0.78 1.2-3.4 K/uL Monocytes # (Auto) 0.40 0.11-0.59 K/uL Eosinophils # (Auto) 0.03 0-0.5 K/uL Basophils # (Auto) 0.01 0-0.2 K/uL RDW Standard Deviation 45.7 36.4-46.3 fL RDW Coefficient of Variation 13.7 11.5-14.5 % Immature Granulocyte % (Auto) 0.2 % Immature Granulocyte # (Auto) 0.02 0.00-0.02 K/uL Sodium Level 143 136-145 mmol/L Potassium Level 3.7 3.5-5.1 mmol/L Chloride Level 110 98-107 mmol/L Carbon Dioxide Level 26 21-32 mmol/L Anion Gap 7.0 3-11 mmol/L Blood Urea Nitrogen 8 7-18 mg/dl Creatinine 0.58 0.60-1.40 mg/dl Est Creatinine Clear Calc Drug Dose 167.8 ml/min Estimated GFR () 145.8 Estimated GFR (Non- 125.8 BUN/Creatinine Ratio 14.1 10-20 Random Glucose 104 70-99 mg/dl Calcium Level 8.3 8.5-10.1 mg/dl Assessment & Plan /15/17 POD #1 right hemicolectomy no acute issues. wbc normal low grade temp last night. resolved with tylenol per nursing continue to increase activity awaiting bowel fx katie clears
--- NOTE | 2017-01-20 10:07 | Family Medicine Progress Note ---
Progress Note Date of Service Jan 20, 2017. Subjective Pt evaluation today including: conversation w/ patient, conversation w/ family , physical exam, chart review, lab review, review of studies, review of inpatient medication list Pain: denies PO Intake: adequate Voiding: no voiding problems Overnight, per night team, patient experienced 10 minute period of being tachycardic, ranging from 103-132 and a low grade fever (37.4) Per nurse, no further episodes of tachycardia since then. Fever has resolved. Patient reports no complaints. He denies CP, Palpitation, SOB. Constitutional: No chills, No fever, No weakness Respiratory: No cough, No dyspnea at rest, No shortness of breath Cardiovascular: No chest pain, No edema, No palpitations Abdomen: No nausea, No pain, No vomiting Male : No dysuria, No urinary frequency Skin: No itch, No rash Medications Current Inpatient Medications Medications (Trade) Dose Ordered Sig/Melva Route Start Time Stop Time Status Last Admin Dose Admin Lactated Ringer's 1,000 ml @ 125 mls/hr Q8H IV 01/18/17 13:30 02/17/17 13:29 01/20/17 04:06 125 MLS/HR Acetaminophen (Ofirmev Iv) 100 ml @ 400 mls/hr Q8H PRN IV 01/18/17 10:15 02/17/17 10:14 01/20/17 02:17 400 MLS/HR Ibuprofen (Motrin Tab) 600 mg Q6H PRN PO 01/18/17 10:15 02/17/17 10:14 Oxycodone HCl (Roxicodone Immediate Rel Tab) 5 mg Q4H PRN PO 01/18/17 10:15 02/01/17 10:14 01/19/17 08:32 5 MG Morphine Sulfate (MoRPHine SULFATE INJ) 3 mg Q3H PRN IV 01/18/17 10:15 02/01/17 10:14 Oxycodone HCl (Roxicodone Immediate Rel Tab) 10 mg Q4H PRN PO 01/18/17 10:15 02/01/17 10:14 01/18/17 15:12 10 MG Morphine Sulfate (MoRPHine SULFATE INJ) 5 mg Q3H PRN IV 01/18/17 10:15 02/01/17 10:14 Ondansetron HCl (Zofran Inj) 4 mg Q6H PRN IV 01/18/17 10:15 02/17/17 10:14 Enoxaparin Sodium (Lovenox Inj) 40 mg Q24H SQ 01/18/17 21:00 02/17/17 10:14 01/19/17 20:58 40 MG Phenobarbital (Phenobarbital Tab) 129.6 mg HS PO 01/18/17 20:00 02/17/17 19:59 01/19/17 20:52 129.6 MG Objective Vital Signs Date Time Temp Pulse Resp B/P Pulse Ox O2 Delivery O2 Flow Rate FiO2 01/20/17 08:50 76 103/71 01/20/17 08:30 Nasal Cannula 3.0 01/20/17 07:03 36.4 72 16 92/55 96 Room Air 01/20/17 02:45 36.8 01/20/17 01:17 37.3 89 16 101/68 100 Nasal Cannula 3.0 01/20/17 01:08 114 01/20/17 01:03 105 01/20/17 01:00 132 01/19/17 23:20 99 Nasal Cannula 3.0 01/19/17 23:00 37.0 76 17 108/65 99 Nasal Cannula 3.0 01/19/17 15:29 36.9 74 18 120/88 97 Nasal Cannula 3.0 01/19/17 15:20 Nasal Cannula 3.0 01/19/17 12:29 36.9 89 18 141/96 93 Room Air 3.0 Physical Exam General Appearance: WD/WN, no apparent distress Eyes: PERRL, EOMI Neck: supple, no carotid bruits, trachea midline Respiratory/Chest: lungs clear, normal breath sounds, no respiratory distress, no accessory muscle use Cardiovascular: regular rate, rhythm, no edema, no murmur Abdomen: normal bowel sounds, non tender, soft, + pertinent finding (surgical wound non-erythematous or drainage) Extremities: no pedal edema, no calf tenderness Neurologic/Psychiatric: alert Skin: normal color, warm/dry, no rash Laboratory Results Results Past 24 Hours Test 01/20/17 07:00 Range/Units White Blood Count 8.16 4.8-10.8 K/uL Red Blood Count 3.44 4.7-6.1 M/uL Hemoglobin 10.8 14.0-18.0 g/dL Hematocrit 31.4 42-52 % Mean Corpuscular Volume 91.3 80-100 fL Mean Corpuscular Hemoglobin 31.4 25-34 pg Mean Corpuscular Hemoglobin Concent 34.4 32-36 g/dl Platelet Count 109 130-400 K/uL Mean Platelet Volume 11.3 7.4-10.4 fL Neutrophils (%) (Auto) 84.8 % Lymphocytes (%) (Auto) 9.6 % Monocytes (%) (Auto) 4.9 % Eosinophils (%) (Auto) 0.4 % Basophils (%) (Auto) 0.1 % Neutrophils # (Auto) 6.92 1.4-6.5 K/uL Lymphocytes # (Auto) 0.78 1.2-3.4 K/uL Monocytes # (Auto) 0.40 0.11-0.59 K/uL Eosinophils # (Auto) 0.03 0-0.5 K/uL Basophils # (Auto) 0.01 0-0.2 K/uL RDW Standard Deviation 45.7 36.4-46.3 fL RDW Coefficient of Variation 13.7 11.5-14.5 % Immature Granulocyte % (Auto) 0.2 % Immature Granulocyte # (Auto) 0.02 0.00-0.02 K/uL Sodium Level 143 136-145 mmol/L Potassium Level 3.7 3.5-5.1 mmol/L Chloride Level 110 98-107 mmol/L Carbon Dioxide Level 26 21-32 mmol/L Anion Gap 7.0 3-11 mmol/L Blood Urea Nitrogen 8 7-18 mg/dl Creatinine 0.58 0.60-1.40 mg/dl Est Creatinine Clear Calc Drug Dose 167.8 ml/min Estimated GFR () 145.8 Estimated GFR (Non- 125.8 BUN/Creatinine Ratio 14.1 10-20 Random Glucose 104 70-99 mg/dl Calcium Level 8.3 8.5-10.1 mg/dl Assessment and Plan 41 yo M s/p open hemicolectomy POD1 consulted for Post-operative Tachycardia, Fever Post-operative Tachycardia, fever - Tachycardia resolved, Fever resolved with Tylenol - Patient is asx, comfortable - Will continue to follow Resident Tracking Resident Involvement: Resident Care Provided Care Provided: Adult [facility] Medicine Reviewed: Pt Seen/Exam by Me History Pt is doing well post-op. No further fevers. Has been tolerating clears without issue. Has not had a bowel movement yet per mother. Denies abd pain, SOB, chest pain. Agree with HPI/ROS as noted. General Appearance: WD/WN, no apparent distress Respiratory: lungs clear, normal breath sounds, no respiratory distress Cardiovascular: normal peripheral pulses, regular rate, rhythm Gastrointestinal: non tender, soft Extremities: non-tender, no pedal edema Neurologic/Psychiatric: alert, other (oriented to person, answers basic questions and follows basic commands) Skin Characteristics: normal color, warm/dry Assessment/Plan Resident Physician Supervision Note: I discussed the case with the resident and agree with the findings and plan as documented in the note. Any exceptions or clarifications are listed here: Agree with plan as outlined above Brief episode of tachycardia overnight that was associated with fever and resolved with tylenol No further episodes Stable post-op with management as per gen surg Documented By: Bibi Santana
[2017-01-20] MEDS: OXYCODONE HCL IR 5 MG TAB (IMMEDIATE RELEASE) PO PRN (16:03)
[2017-01-20] MEDS: ENOXAPARIN 40 MG/0.4 ML SYR SQ SCH (20:49)
[2017-01-20] MEDS: PHENOBARBITAL 32.4 MG TAB PO SCH (20:49)
[2017-01-21] MEDS: LACTATED RINGER'S 1000ML 1,000 ML IV SCH ×3 (04:00→20:30)
[2017-01-21 06:43] LABS: BASO % 0.1 %; BASO ABS # 0.01 K/uL (0-0.2); COMPLETE YES; EOS % 1.6 %; HEMATOCRIT 32.5 % (42-52); IG% 0.3 %; LYMPH % 11.4 %; MEAN CELL VOLUME 92.9 fL (80-100); MEAN CORPUSCULAR HEMOGLOBIN 31.1 pg (25-34); MEAN CORPUSCULAR HGB CONC 33.5 g/dl (32-36); MEAN PLATELET VOLUME 11.6 fL (7.4-10.4); MONO % 6.4 %; NEUT % 80.2 %; PLATELET COUNT 118 K/uL (130-400); WHITE BLOOD COUNT 7.04 K/uL (4.8-10.8)
[2017-01-21 07:10] LABS: BUN/CREATININE RATIO 11.2 (10-20); CALCIUM 8.2 mg/dl (8.5-10.1); CREATININE 0.58 mg/dl (0.60-1.40); POTASSIUM 3.5 mmol/L (3.5-5.1)
[2017-01-21 07:31] VITALS: BP 96/58; PULSE 70; TEMP 36.6; O2SAT 95
--- NOTE | 2017-01-21 08:37 | Family Medicine Progress Note ---
Progress Note Date of Service Jan 21, 2017. Subjective Pt evaluation today including: conversation w/ patient, physical exam Pain: denies PO Intake: adequate Voiding: no voiding problems NO complaints , Per nurse, no further episodes of fever, tachycardia,. denies CP , Palpitation, SOB, N/V. Denies flatus, BM Additional Comments: Constitutional: No chills, No fever, No weakness Respiratory: No cough, No dyspnea at rest, No shortness of breath Cardiovascular: No chest pain, No edema, No palpitations Abdomen: No nausea, No pain, No vomiting Male : No dysuria, No urinary frequency Skin: No itch, No rash Medications Current Inpatient Medications Medications (Trade) Dose Ordered Sig/Melva Route Start Time Stop Time Status Last Admin Dose Admin Lactated Ringer's 1,000 ml @ 125 mls/hr Q8H IV 01/18/17 13:30 02/17/17 13:29 01/21/17 04:00 125 MLS/HR Acetaminophen (Ofirmev Iv) 100 ml @ 400 mls/hr Q8H PRN IV 01/18/17 10:15 02/17/17 10:14 01/20/17 02:17 400 MLS/HR Ibuprofen (Motrin Tab) 600 mg Q6H PRN PO 01/18/17 10:15 02/17/17 10:14 Oxycodone HCl (Roxicodone Immediate Rel Tab) 5 mg Q4H PRN PO 01/18/17 10:15 02/01/17 10:14 01/20/17 16:03 5 MG Morphine Sulfate (MoRPHine SULFATE INJ) 3 mg Q3H PRN IV 01/18/17 10:15 02/01/17 10:14 Oxycodone HCl (Roxicodone Immediate Rel Tab) 10 mg Q4H PRN PO 01/18/17 10:15 02/01/17 10:14 01/18/17 15:12 10 MG Morphine Sulfate (MoRPHine SULFATE INJ) 5 mg Q3H PRN IV 01/18/17 10:15 02/01/17 10:14 Ondansetron HCl (Zofran Inj) 4 mg Q6H PRN IV 01/18/17 10:15 02/17/17 10:14 Enoxaparin Sodium (Lovenox Inj) 40 mg Q24H SQ 01/18/17 21:00 02/17/17 10:14 01/20/17 20:49 40 MG Phenobarbital (Phenobarbital Tab) 129.6 mg HS PO 01/18/17 20:00 02/17/17 19:59 01/20/17 20:49 129.6 MG Objective Vital Signs Date Time Temp Pulse Resp B/P Pulse Ox O2 Delivery O2 Flow Rate FiO2 01/21/17 15:36 37.0 81 18 114/78 98 Room Air 01/21/17 12:17 37.0 72 16 115/81 93 Room Air 01/21/17 08:19 Nasal Cannula 1.0 01/21/17 08:00 Room Air 01/21/17 07:31 36.6 70 16 96/58 95 Nasal Cannula 2.0 01/21/17 00:00 Room Air 01/20/17 23:19 36.5 77 18 116/75 98 Nasal Cannula 1.0 Physical Exam Notes: General Appearance: WD/WN, no apparent distress Eyes: PERRL, EOMI Neck: supple, no carotid bruits, trachea midline Respiratory/Chest: lungs clear, normal breath sounds, no respiratory distress, no accessory muscle use Cardiovascular: regular rate, rhythm, no edema, no murmur Abdomen: normal bowel sounds, non tender, soft, + pertinent finding (surgical wound non-erythematous or drainage) Extremities: no pedal edema, no calf tenderness Neurologic/Psychiatric: alert Skin: normal color, warm/dry, no rash Laboratory Results Results Past 24 Hours Test 01/21/17 06:05 01/21/17 06:08 Range/Units Sodium Level 145 136-145 mmol/L Potassium Level 3.5 3.5-5.1 mmol/L Chloride Level 112 98-107 mmol/L Carbon Dioxide Level 27 21-32 mmol/L Anion Gap 6.0 3-11 mmol/L Blood Urea Nitrogen 7 7-18 mg/dl Creatinine 0.58 0.60-1.40 mg/dl Est Creatinine Clear Calc Drug Dose 167.8 ml/min Estimated GFR () 145.8 Estimated GFR (Non- 125.8 BUN/Creatinine Ratio 11.2 10-20 Random Glucose 97 70-99 mg/dl Calcium Level 8.2 8.5-10.1 mg/dl White Blood Count 7.04 4.8-10.8 K/uL Red Blood Count 3.50 4.7-6.1 M/uL Hemoglobin 10.9 14.0-18.0 g/dL Hematocrit 32.5 42-52 % Mean Corpuscular Volume 92.9 80-100 fL Mean Corpuscular Hemoglobin 31.1 25-34 pg Mean Corpuscular Hemoglobin Concent 33.5 32-36 g/dl Platelet Count 118 130-400 K/uL Mean Platelet Volume 11.6 7.4-10.4 fL Neutrophils (%) (Auto) 80.2 % Lymphocytes (%) (Auto) 11.4 % Monocytes (%) (Auto) 6.4 % Eosinophils (%) (Auto) 1.6 % Basophils (%) (Auto) 0.1 % Neutrophils # (Auto) 5.65 1.4-6.5 K/uL Lymphocytes # (Auto) 0.80 1.2-3.4 K/uL Monocytes # (Auto) 0.45 0.11-0.59 K/uL Eosinophils # (Auto) 0.11 0-0.5 K/uL Basophils # (Auto) 0.01 0-0.2 K/uL RDW Standard Deviation 46.9 36.4-46.3 fL RDW Coefficient of Variation 13.8 11.5-14.5 % Immature Granulocyte % (Auto) 0.3 % Immature Granulocyte # (Auto) 0.02 0.00-0.02 K/uL Assessment and Plan 41 yo M s/p open hemicolectomy POD1 consulted for Post-operative Tachycardia, Fever Post-operative Tachycardia, fever - Tachycardia resolved, Fever resolved - Patient is asx, comfortable -Thank you for allowing us to see this patient. At this time, we will be signing off Resident Tracking Resident Involvement: Resident Care Provided Care Provided: [facility] Medicine Reviewed: Pt Seen/Exam by Me History Pt doing well. Still no bowel movement. Tolerating clears. Agree with HPI/ROS as noted. General Appearance: WD/WN, no apparent distress Respiratory: normal breath sounds, no respiratory distress Cardiovascular: normal peripheral pulses, regular rate, rhythm Gastrointestinal: non tender, soft Extremities: non-tender, no pedal edema Neurologic/Psychiatric: alert, other (answers questions, follows basic commands ) Skin Characteristics: normal color, warm/dry Assessment/Plan Resident Physician Supervision Note: I discussed the case with the resident and agree with the findings and plan as documented in the note. Any exceptions or clarifications are listed here: Agree with plan as outlined above Brief episode of tachycardia overnight that was associated with fever and resolved with tylenol No further episodes Stable post-op with management as per gen surg Will sign off for now, please call if there are further concerns Documented By: Bibi Santana
[2017-01-21 12:17] VITALS: BP 115/81; PULSE 72; TEMP 37; O2SAT 93
--- NOTE | 2017-01-21 14:05 | Surgery Progress Note ---
Surgery Progress Note Date of Service Jan 21, 2017. Subjective Post OP Day: 2 + feeling well looks great today out of bed /coloring smiling no bm yet katie liquids Objective Vital Signs: Date Time Temp Pulse Resp B/P Pulse Ox O2 Delivery O2 Flow Rate FiO2 01/21/17 12:17 37.0 72 16 115/81 93 Room Air 01/21/17 08:19 Nasal Cannula 1.0 01/21/17 08:00 Room Air 01/21/17 07:31 36.6 70 16 96/58 95 Nasal Cannula 2.0 01/21/17 00:00 Room Air 01/20/17 23:19 36.5 77 18 116/75 98 Nasal Cannula 1.0 01/20/17 16:10 96 Room Air 01/20/17 15:09 36.9 83 18 128/82 96 Room Air General Appearance: no apparent distress Head: normocephalic Neck: supple Abdomen: non distended, soft Incision(s): clean, dry, intact Laboratory Results: Results Past 24 Hours Test 01/21/17 06:05 01/21/17 06:08 Range/Units Sodium Level 145 136-145 mmol/L Potassium Level 3.5 3.5-5.1 mmol/L Chloride Level 112 98-107 mmol/L Carbon Dioxide Level 27 21-32 mmol/L Anion Gap 6.0 3-11 mmol/L Blood Urea Nitrogen 7 7-18 mg/dl Creatinine 0.58 0.60-1.40 mg/dl Est Creatinine Clear Calc Drug Dose 167.8 ml/min Estimated GFR () 145.8 Estimated GFR (Non- 125.8 BUN/Creatinine Ratio 11.2 10-20 Random Glucose 97 70-99 mg/dl Calcium Level 8.2 8.5-10.1 mg/dl White Blood Count 7.04 4.8-10.8 K/uL Red Blood Count 3.50 4.7-6.1 M/uL Hemoglobin 10.9 14.0-18.0 g/dL Hematocrit 32.5 42-52 % Mean Corpuscular Volume 92.9 80-100 fL Mean Corpuscular Hemoglobin 31.1 25-34 pg Mean Corpuscular Hemoglobin Concent 33.5 32-36 g/dl Platelet Count 118 130-400 K/uL Mean Platelet Volume 11.6 7.4-10.4 fL Neutrophils (%) (Auto) 80.2 % Lymphocytes (%) (Auto) 11.4 % Monocytes (%) (Auto) 6.4 % Eosinophils (%) (Auto) 1.6 % Basophils (%) (Auto) 0.1 % Neutrophils # (Auto) 5.65 1.4-6.5 K/uL Lymphocytes # (Auto) 0.80 1.2-3.4 K/uL Monocytes # (Auto) 0.45 0.11-0.59 K/uL Eosinophils # (Auto) 0.11 0-0.5 K/uL Basophils # (Auto) 0.01 0-0.2 K/uL RDW Standard Deviation 46.9 36.4-46.3 fL RDW Coefficient of Variation 13.8 11.5-14.5 % Immature Granulocyte % (Auto) 0.3 % Immature Granulocyte # (Auto) 0.02 0.00-0.02 K/uL Assessment & Plan 3 pod#3 no major issues awaiting bowel fx will increase to full liquids/crackers 01/20/17 POD #2 right hemicolectomy no acute issues. wbc normal low grade temp last night. resolved with tylenol per nursing continue to increase activity awaiting bowel fx katie clears POD #1 right hemicolectomy no acute issues. wbc normal low grade temp last night. resolved with tylenol per nursing continue to increase activity awaiting bowel fx katie clears
[2017-01-21 15:36] VITALS: BP 114/78; PULSE 81; TEMP 37; O2SAT 98
[2017-01-21 19:30] VITALS: O2SAT 98
[2017-01-21] MEDS: PHENOBARBITAL 32.4 MG TAB PO SCH (20:57)
[2017-01-21] MEDS: ENOXAPARIN 40 MG/0.4 ML SYR SQ SCH (21:00)
[2017-01-21 22:55] VITALS: BP 107/69; PULSE 73; TEMP 37; O2SAT 95
[2017-01-22] MEDS: LACTATED RINGER'S 1000ML 1,000 ML IV SCH (04:15)
[2017-01-22 06:56] VITALS: BP 93/56; PULSE 70; TEMP 36.8; O2SAT 93
--- NOTE | 2017-01-22 08:24 | Surgery Progress Note ---
Surgery Progress Note Date of Service Jan 22, 2017. Subjective Post OP Day: 4 + feeling well per nursing no issues. no bm yet pain appears controlled "hungry" katie crackers/full liquids. Objective Vital Signs: Date Time Temp Pulse Resp B/P Pulse Ox O2 Delivery O2 Flow Rate FiO2 01/22/17 06:56 36.8 70 16 93/56 93 Room Air 01/21/17 23:33 Room Air 01/21/17 22:55 37.0 73 16 107/69 95 Room Air 01/21/17 19:30 98 Room Air 01/21/17 15:36 37.0 81 18 114/78 98 Room Air 01/21/17 12:17 37.0 72 16 115/81 93 Room Air General Appearance: no apparent distress Abdomen: non distended, soft Incision(s): clean, dry, intact, no erythema Extremities: normal inspection Assessment & Plan 01/22/17 continues to do well awaiting bowel fx with no n/v or bowel distension I'm inclined to give him some food to try and stimulate bowel movement I'm concerned suppository may increase his anxiety/mistrust Dr. Vo covering for weekend. 01/21/17 pod#3 no major issues awaiting bowel fx will increase to full liquids/crackers 01/20/17 POD #2 right hemicolectomy no acute issues. wbc normal low grade temp last night. resolved with tylenol per nursing continue to increase activity awaiting bowel fx katie clears 01/21/17 pod#3 no major issues awaiting bowel fx will increase to full liquids/crackers 01/20/17 POD #2 right hemicolectomy no acute issues. wbc normal low grade temp last night. resolved with tylenol per nursing continue to increase activity awaiting bowel fx katie clears
[2017-01-22] MEDS ORDERED: HYDR-5688 PO (08:25)
--- NOTE | 2017-01-22 08:26 | Discharge Instructions ---
Discharge Instructions Date of Service Jan 22, 2017. Admission Reason for Admission: Mass Of Colon; Pre-Op Discharge Discharge Diagnosis / Problem: colon mass Discharge Goals Goal(s): Diagnostic testing, Therapeutic intervention Activity Recommendations Activity Limitations: as noted below Lifting Limitations: no more than 10 pounds Exercise/Sports Limitations: until after follow-up appointment Shower/Bathe: no limitations . Instructions / Follow-Up Instructions / Follow-Up call [phone] if any problems/questions. f/u dr. henderson in 1-2 weeks Current Hospital Diet Patient's current hospital diet: Full Liquid Diet Discharge Diet Recommended Diet: Regular Diet Procedures Procedures Performed: Right Laparoscopic Hemicolectomy, Converted to Open, Primary Anastamosis Pending Studies Studies pending at discharge: yes List of pending studies: path report Medical Emergencies . Who to Call and When: Medical Emergencies: If at any time you feel your situation is an emergency, please call 911 immediately. . Non-Emergent Contact Non-Emergency issues call your: Primary Care Provider, Surgeon . "Provider Documentation" section prepared by Mustapha Henderson. VTE Core Measure Inpt VTE Proph given/why not?: Unfractionated heparin SQ, SCD's
[2017-01-22] MEDS ORDERED: NURSING VERBAL MED ORDER ONE (09:15)
--- NOTE | 2017-01-22 10:47 | Family Medicine Progress Note ---
Progress Note Date of Service Jan 22, 2017. Medications Current Inpatient Medications Medications (Trade) Dose Ordered Sig/Melva Route Start Time Stop Time Status Last Admin Dose Admin Acetaminophen (Ofirmev Iv) 100 ml @ 400 mls/hr Q8H PRN IV 01/18/17 10:15 02/17/17 10:14 01/20/17 02:17 400 MLS/HR Ibuprofen (Motrin Tab) 600 mg Q6H PRN PO 01/18/17 10:15 02/17/17 10:14 Oxycodone HCl (Roxicodone Immediate Rel Tab) 5 mg Q4H PRN PO 01/18/17 10:15 02/01/17 10:14 01/20/17 16:03 5 MG Morphine Sulfate (MoRPHine SULFATE INJ) 3 mg Q3H PRN IV 01/18/17 10:15 02/01/17 10:14 Oxycodone HCl (Roxicodone Immediate Rel Tab) 10 mg Q4H PRN PO 01/18/17 10:15 02/01/17 10:14 01/18/17 15:12 10 MG Morphine Sulfate (MoRPHine SULFATE INJ) 5 mg Q3H PRN IV 01/18/17 10:15 02/01/17 10:14 Ondansetron HCl (Zofran Inj) 4 mg Q6H PRN IV 01/18/17 10:15 02/17/17 10:14 Enoxaparin Sodium (Lovenox Inj) 40 mg Q24H SQ 01/18/17 21:00 02/17/17 10:14 01/21/17 21:00 40 MG Phenobarbital (Phenobarbital Tab) 129.6 mg HS PO 01/18/17 20:00 02/17/17 19:59 01/21/17 20:57 129.6 MG
[2017-01-22 13:23] VITALS: BP 93/56; PULSE 70; TEMP 36.8; O2SAT 93
== END 2017-01-22 14:03 | disposition home or self-care (01) | DRG 331 ==
LOC: ENRESERVTM → ENRESERVDT → C.ACU 05:03 → C.MSN 06:50
PROVIDERS: ADMIT Surgery; ATTEND Surgery
PROC: 0DTL0ZZ Resection of Transverse Colon, Open Approach (ICD-10-PCS; principal; 2017-01-18 07:00)
DX: D01.0 Carcinoma in situ of colon (principal); K59.8 Other specified functional intestinal disorders

== ENCOUNTER → 2017-02-02 | Outpatient (CLI) | payer OTHER, BC ==
[~2017-02-02] MED LIST changes: +HYDR-5688 PO
== END | disposition home or self-care (01) ==
LOC: C.PATHSPEC 16:47
PROVIDERS: ATTEND Dermatology
DX: D18.01 Hemangioma of skin and subcutaneous tissue (principal)

== ENCOUNTER → 2017-03-25 | Outpatient (CLI) | payer OTHER, BC ==
[~2017-03-25] MED LIST changes: +LEVO5TAB2 PO; +MIRA1TAB3 PO; +[UNRECOGNIZED DRUG - CODE] OTB; -[UNRECOGNIZED DRUG - CODE] OTB
== END | disposition home or self-care (01) ==
LOC: C.LAB 15:06
PROVIDERS: ATTEND Nurse Practitioner Family
DX: N39.0 Urinary tract infection, site not specified (principal)

== ENCOUNTER → 2017-05-04 | Outpatient (CLI) | payer OTHER, BC ==
[2017-05-04 11:20] LABS: BASO % 0.2 %; BASO ABS # 0.01 K/uL (0-0.2); COMPLETE YES; EOS % 1.6 %; IG% 0.2 %; LYMPH % 25.1 %; LYMPH ABS # 1.24 K/uL (1.2-3.4); MEAN CELL VOLUME 94.1 fL (80-100); MEAN CORPUSCULAR HEMOGLOBIN 30.4 pg (25-34); MEAN CORPUSCULAR HGB CONC 32.3 g/dl (32-36); MEAN PLATELET VOLUME 11.5 fL (7.4-10.4); MONO % 5.9 %; PLATELET COUNT 162 K/uL (130-400); RED BLOOD COUNT 4.25 M/uL (4.7-6.1); WHITE BLOOD COUNT 4.95 K/uL (4.8-10.8)
[2017-05-04 11:44] LABS: ALT/SGPT 17 U/L (12-78); AST/SGOT 12 U/L (15-37); BLOOD UREA NITROGEN 17 mg/dl (7-18); BUN/CREATININE RATIO 18.6 (10-20); CARBON DIOXIDE 26 mmol/L (21-32); CHLORIDE 113 mmol/L (98-107); CREATININE 0.91 mg/dl (0.60-1.40); GLUCOSE 87 mg/dl (70-99); POTASSIUM 4.1 mmol/L (3.5-5.1); SODIUM 147 mmol/L (136-145)
[2017-05-04 11:55] LABS: ALB/GLOB RATIO 1.2 (0.9-2); ALKALINE PHOSPHATASE 83 U/L (45-117)
[2017-05-04 13:31] LABS: CALCIUM 9.1 mg/dl (8.5-10.1)
== END | disposition home or self-care (01) ==
LOC: C.LABBC 07:35
PROVIDERS: ATTEND Psychiatry & Neurology Neurology
DX: G40.909 Epilepsy, unspecified, not intractable, without status epilepticus (principal)

== ENCOUNTER → 2017-07-21 | Outpatient (CLI) | payer OTHER, BC ==
[~2017-07-21] MED LIST changes: -LEVO5TAB2 PO; -MIRA1TAB3 PO; +[UNRECOGNIZED DRUG - CODE] OTB; -[UNRECOGNIZED DRUG - CODE] OTB
[2017-07-21 10:45] LABS: BASO % 0.5 %; BASO ABS # 0.02 K/uL (0-0.2); COMPLETE YES; EOS % 2.7 %; HEMATOCRIT 38.3 % (42-52); IG% 0.2 %; LYMPH % 25.6 %; LYMPH ABS # 1.13 K/uL (1.2-3.4); MEAN CELL VOLUME 95.3 fL (80-100); MEAN CORPUSCULAR HEMOGLOBIN 30.6 pg (25-34); MEAN CORPUSCULAR HGB CONC 32.1 g/dl (32-36); MEAN PLATELET VOLUME 12.1 fL (7.4-10.4); MONO % 6.6 %; NEUT % 64.4 %; PLATELET COUNT 138 K/uL (130-400); RED BLOOD COUNT 4.02 M/uL (4.7-6.1); WHITE BLOOD COUNT 4.42 K/uL (4.8-10.8)
[2017-07-21 11:04] LABS: ALT/SGPT 20 U/L (12-78); AST/SGOT 12 U/L (15-37); BLOOD UREA NITROGEN 16 mg/dl (7-18); BUN/CREATININE RATIO 17.9 (10-20); CALCIUM 8.8 mg/dl (8.5-10.1); CARBON DIOXIDE 27 mmol/L (21-32); CHLORIDE 112 mmol/L (98-107); GLUCOSE 84 mg/dl (70-99); SODIUM 144 mmol/L (136-145)
[2017-07-21 11:11] LABS: ALB/GLOB RATIO 1.2 (0.9-2); ALKALINE PHOSPHATASE 86 U/L (45-117); CHOLESTEROL 141 mg/dl (0-200); CHOLESTEROL/HDL RATIO 3.4; HDL CHOLESTEROL 41 mg/dl; LDL CHOLESTEROL CALCULATED 88 mg/dl; TRIGLYCERIDES 60 mg/dl (0-150); VERY LOW DENSITY LIPOPROT CALC 12 mg/dl
--- NOTE | 2017-08-18 07:03 | CODING QUERY MEDICAL NECESSITY ---
SUPPORTING DIAGNOSIS NEEDED A supporting diagnosis is required for the test/procedure performed on this patient in order for us to be reimbursed by the patient's insurance. Please provide a supporting diagnosis for the following test/procedure listed below next to the test name along with your signature. *If there is no additional diagnosis for this patient that would support the following test/procedure please document that below next to the test/procedure. Test(s)/Procedure(s) that require a supporting diagnosis: * VITAMIN B12 DIAGNOSIS: Provider Signature: Date: Thank you Bibi [place] [employer] Information Management Once completed, please kindly fax back to [phone] For questions please call [phone]
== END | disposition home or self-care (01) ==
LOC: C.LABBC 07:44
PROVIDERS: ATTEND Nurse Practitioner Adult Health
DX: D64.9 Anemia, unspecified (principal)

== ENCOUNTER → 2017-08-20 | Outpatient (CLI) | payer OTHER, BC ==
[~2017-08-20] MED LIST changes: -HYDR-5688 PO
--- NOTE | 2017-08-20 13:07 | DIAGNOSTIC IMAGING REPORT ---
L FOOT MIN 3 VIEWS ROUTINE CLINICAL HISTORY: Left heel pain. COMPARISON: None FINDINGS: Tarsometatarsal joints are intact. There is mild posterior and moderate plantar calcaneal spurring. No fracture or suspicious lesion is identified within the left foot. No erosions are identified. 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 Mild posterior and moderate plantar calcaneal spurring. 2. No calcaneal fracture. Electronically signed by: Deacon Helms M.D. 08/20/2017 1:05 PM Dictated Date/Time: 08/20/2017 1:04 PM
== END | disposition home or self-care (01) ==
LOC: C.RAD 12:14
PROVIDERS: ATTEND Neuromusculoskeletal Medicine & OMM
DX: M77.32 Calcaneal spur, left foot (principal)

== ENCOUNTER 2017-09-18 15:08 | Emergency (ER) | payer OTHER, BC ==
[~2017-09-18 15:08] MED LIST changes: -CYAN10005 PO; -FLUT0.15 NAE; -LEVO5TAB2 PO; -MIRA1TAB3 PO; -[UNRECOGNIZED DRUG - CODE] OTB
[2017-09-18 15:11] VITALS: TEMP 36.4
[2017-09-18 16:15] LABS: BASO % 0.2 %; BASO ABS # 0.01 K/uL (0-0.2); COMPLETE YES; EOS % 1.3 %; HEMATOCRIT 38.6 % (42-52); IG% 0.2 %; LYMPH % 19.1 %; LYMPH ABS # 1.15 K/uL (1.2-3.4); MEAN CELL VOLUME 93.5 fL (80-100); MEAN CORPUSCULAR HGB CONC 34.2 g/dl (32-36); MEAN PLATELET VOLUME 10.8 fL (7.4-10.4); MONO % 6.5 %; NEUT % 72.7 %; PLATELET COUNT 144 K/uL (130-400); RED BLOOD COUNT 4.13 M/uL (4.7-6.1); WHITE BLOOD COUNT 6.01 K/uL (4.8-10.8)
[2017-09-18 16:32] LABS: ALT/SGPT 21 U/L (12-78); AST/SGOT 13 U/L (15-37); BLOOD UREA NITROGEN 13 mg/dl (7-18); BUN/CREATININE RATIO 14.6 (10-20); CALCIUM 9.2 mg/dl (8.5-10.1); CARBON DIOXIDE 26 mmol/L (21-32); CHLORIDE 107 mmol/L (98-107); CREATININE 0.91 mg/dl (0.60-1.40); GLUCOSE 100 mg/dl (70-99); POTASSIUM 3.8 mmol/L (3.5-5.1); SODIUM 141 mmol/L (136-145)
[2017-09-18 16:35] LABS: ALKALINE PHOSPHATASE 99 U/L (45-117)
[2017-09-18] MEDS ORDERED: LEVO5TAB2 PO (16:40)
[2017-09-18] MEDS ORDERED: MIRA1TAB3 PO (16:40)
[2017-09-18] MEDS ORDERED: SOD PHOSPHATE/SOD BIPHOSPHATE ENEMA 132 ML BTL PR STA (17:11)
[2017-09-18] MEDS ORDERED: MAGNESIUM CITRATE 296 ML/BTL PO PRN (17:15)
[2017-09-18 17:22] LABS: URINE APPEARANCE CLEAR (CLEAR); URINE BILIRUBIN NEG (NEG); URINE COLOR YELLOW; URINE EPITHELIAL CELL AUTO 0-5 /lpf (0-5); URINE NITRITE NEG (NEG); URINE SPECIFIC GRAVITY 1.012 (1.000-1.030); UROBILINOGEN NEG (NEG); ZZUR CULT IF INDIC CLEAN CATCH NO
[2017-09-18 17:26] LABS: MANUAL MICROSCOPIC REQUIRED? NO; REVIEW REQ? NO
[2017-09-18 18:45] VITALS: BP 115/76; PULSE 88; O2SAT 98
[2017-09-18] MEDS ORDERED: FLUT0.15 NAE (19:53)
[2017-09-18] MEDS ORDERED: [UNRECOGNIZED DRUG - CODE] OTB (19:53)
[2017-09-18] MEDS ORDERED: CYAN10005 PO (19:53)
--- NOTE | 2017-09-18 21:45 | EMERGENCY ROOM VISIT NOTE ---
History Report prepared by Tasia: Mustapha Cisse Under the Supervision of: Dr. Juan Antonio Cespedes D.O. First contact with patient: 15:42 Chief Complaint: CONSTIPATION Stated Complaint: REFERRED FOR ENEMA, HAD XRAYS TODAY Nursing Triage Summary: Pt resides at [facility]. Here with a caregiver who reports constipated yesterday. Had x-rays today, told pt is impacted and was sent here for an enema. Denies pain or n/v. Caregiver states pt was just "acting weird." History of Present Illness The patient is a 42 year old male who presents to the Emergency Room from [facility] with a caregiver with persistent constipation that started yesterday. Per the patient's caregiver, the patient started saying that he was not feeling well last week. The patient had a small bowel movement 2 days ago, but did not have a bowel movement yesterday, which was unusual. He had x-rays in the hospital earlier today, and was told that he had a bowel obstruction/ constipation, and was suggested to come here to have an enema. Per the patient' s caregiver, the patient did have a large bowel movement after the x-rays today , but was still recommended to come here given that the obstruction was into the colon. The patient did have an episode of urinary incontinence today, and that is normal when he is constipated. Per the patient's caregiver, the patient is acting normally at baseline. The patient did have a part of his colon removed in January due to polyps. The patient denies any chest pain, shortness of breath, headaches, abdominal pain, pain or burning with urination, or any other discomfort. Source of History: patient, caregiver Onset: Yesterday Position: other (global - constipation) Quality: other (x-rays revealed bowel obstruction) Timing: other (persistent but did have bowel movement earlier today) Associated Symptoms: + urinary symptoms (episode of incontinence, denies pain or burning), No headache, No chest pain, No SOB, No abdominal pain Note: Associated symptoms: Denies any discomfort. Review of Systems See HPI for pertinent positives & negatives. A total of 10 systems reviewed and were otherwise negative. Past Medical & Surgical Medical Problems: (1) Bowel obstruction (2) Colonic mass (3) Fecal impaction (4) Obstipation Family History No pertinent family history Social History Smoking Status: Never Smoker Marital Status: single Housing Status: lives with roommate Occupation Status: disabled Current/Historical Medications Scheduled Carbamide Peroxide (Otic) (Ear Drops Earwax Removal), 5-10 DROPS OTB WK Cyanocobalamin (Vitamin B-12), 1,000 MCG PO QAM Fluticasone Propionate (Nasal) (Flonase Allergy Relief), 1 SPRAY [place] QAM Lactic Acid (Ammonium Lactate) (Ammonium Lactate), 1 APPLN TOP BID Levocetirizine Dihydrochloride (Xyzal), 1 TAB PO DAILY Mirabegron (Myrbetriq Er), 50 MG PO DAILY Polyethylene Glycol 3350 (Miralax), 17 GM PO QAM [Phenobarbital], 129.6 MG PO HS Allergies Coded Allergies: Brompheniramine (Verified Allergy, Unknown, UNKNOWN, 01/18/17) Phenylpropanolamine (Verified Allergy, Unknown, UNKNOWN, 01/18/17) Physical Exam Vital Signs Date Time Temp Pulse Resp B/P (MAP) Pulse Ox O2 Delivery O2 Flow Rate FiO2 09/18/17 18:45 88 16 115/76 98 09/18/17 17:09 72 16 126/78 100 Room Air 09/18/17 15:11 36.4 73 16 126/88 100 Room Air Physical Exam GENERAL: Sitting up in bed, no acute distress, nontoxic EYE EXAM: normal conjunctiva. OROPHARYNX: no exudate, no erythema, lips, buccal mucosa, and tongue normal and mucous membranes are moist NECK: supple, no nuchal rigidity, no adenopathy, non-tender LUNGS: Clear to auscultation. Normal chest wall mechanics HEART: no murmurs, S1 normal and S2 normal ABDOMEN: abdomen soft, non-tender, normo-active bowel sounds, no masses, no rebound or guarding. BACK: Back is symmetrical on inspection and there is no deformity, no midline tenderness, no CVA tenderness. : Normal external genitalia. SKIN: no rashes and no bruising UPPER EXTREMITIES: upper extremities are grossly normal. LOWER EXTREMITIES: No pitting edema. NEURO EXAM: Awake, oriented to person, place, and time, with poor eye contact. Answers yes or no questions, at baseline per caregiver. Cranial nerves II-XII grossly intact, normal speech, no gross weakness of arms, no gross weakness of legs. Medical Decision & Procedures Laboratory Results 09/18/17 16:03 Red Blood Count 4.13, Mean Corpuscular Volume 93.5, Mean Corpuscular Hemoglobin 32.0, Mean Corpuscular Hemoglobin Concent 34.2, Mean Platelet Volume 10.8, Neutrophils (%) (Auto) 72.7, Lymphocytes (%) (Auto) 19.1, Monocytes (%) (Auto) 6.5, Eosinophils (%) (Auto) 1.3, Basophils (%) (Auto) 0.2, Neutrophils # (Auto) 4.37, Lymphocytes # (Auto) 1.15, Monocytes # (Auto) 0.39, Eosinophils # (Auto) 0.08, Basophils # (Auto) 0.01 09/18/17 16:03 Test 09/18/17 16:03 09/18/17 17:00 White Blood Count 6.01 K/uL (4.8-10.8) Red Blood Count 4.13 M/uL (4.7-6.1) Hemoglobin 13.2 g/dL (14.0-18.0) Hematocrit 38.6 % (42-52) Mean Corpuscular Volume 93.5 fL (80-100) Mean Corpuscular Hemoglobin 32.0 pg (25-34) Mean Corpuscular Hemoglobin Concent 34.2 g/dl (32-36) Platelet Count 144 K/uL (130-400) Mean Platelet Volume 10.8 fL (7.4-10.4) Neutrophils (%) (Auto) 72.7 % Lymphocytes (%) (Auto) 19.1 % Monocytes (%) (Auto) 6.5 % Eosinophils (%) (Auto) 1.3 % Basophils (%) (Auto) 0.2 % Neutrophils # (Auto) 4.37 K/uL (1.4-6.5) Lymphocytes # (Auto) 1.15 K/uL (1.2-3.4) Monocytes # (Auto) 0.39 K/uL (0.11-0.59) Eosinophils # (Auto) 0.08 K/uL (0-0.5) Basophils # (Auto) 0.01 K/uL (0-0.2) RDW Standard Deviation 47.1 fL (36.4-46.3) RDW Coefficient of Variation 13.8 % (11.5-14.5) Immature Granulocyte % (Auto) 0.2 % Immature Granulocyte # (Auto) 0.01 K/uL (0.00-0.02) Anion Gap 8.0 mmol/L (3-11) Estimated GFR () 119.2 Estimated GFR (Non- 102.9 BUN/Creatinine Ratio 14.6 (10-20) Calcium Level 9.2 mg/dl (8.5-10.1) Total Bilirubin 0.2 mg/dl (0.2-1) Direct Bilirubin < 0.1 mg/dl (0-0.2) Aspartate Amino Transf (AST/SGOT) 13 U/L (15-37) Alanine Aminotransferase (ALT/SGPT) 21 U/L (12-78) Alkaline Phosphatase 99 U/L (45-117) Total Protein 7.8 gm/dl (6.4-8.2) Albumin 4.1 gm/dl (3.4-5.0) Lipase 104 U/L (73-393) Urine Color YELLOW Urine Appearance CLEAR (CLEAR) Urine pH 8.0 (4.5-7.5) Urine Specific [place] 1.012 (1.000-1.030) Urine Protein NEG (NEG) Urine Glucose (UA) NEG (NEG) Urine Ketones NEG (NEG) Urine Occult Blood NEG (NEG) Urine Nitrite NEG (NEG) Urine Bilirubin NEG (NEG) Urine Urobilinogen NEG (NEG) Urine Leukocyte Esterase NEG (NEG) Urine WBC (Auto) 1-5 /hpf (0-5) Urine RBC (Auto) 0-4 /hpf (0-4) Urine Hyaline Casts (Auto) 0 /lpf (0-5) Urine Epithelial Cells (Auto) 0-5 /lpf (0-5) Urine Bacteria (Auto) NEG (NEG) Laboratory results per my review. Medications Administered Medications (Trade) Dose Ordered Sig/Melva Route Start Time Stop Time Status Last Admin Dose Admin Sodium Biphosphate/ Sodium Phosphate (Fleet Enema) 132 ml NOW STAT NM 09/18/17 17:11 09/18/17 17:13 DC 09/18/17 17:58 132 ML Magnesium Citrate (Citrate Of Magnesia Soln) 296 ml ONE PRN PO 09/18/17 17:15 09/18/17 18:59 DC 09/18/17 17:58 296 ML ED Course ED COURSE: Vital signs were reviewed and showed normal vitals. The patients medical record was reviewed The above diagnostic studies were performed and reviewed. ED treatments and interventions as stated above. 1543: The patient was evaluated in room C10. A complete history and physical examination was performed. 1711: Ordered Fleet Enema 132 ml NM. 1713: I reevaluated and updated the patient. 1715: Ordered Citrate of Magnesia Soln 296 ml PO PRN. 1803: Upon reevaluation, the patient is resting and having a bowel movement. I discussed my findings with the patient and his caregiver and they understand and agree with the treatment plan. Based on the patients age, coexisting illnesses, exam and lab findings the decision to treat as an outpatient was made. The patient remained stable while under my care. The patient appeared well at the time of discharge. Medical Decision Differential diagnoses includes but is not limited to gastritis, peptic ulcer disease, GERD, gallbladder disease, pancreatitis, small bowel obstruction, acute coronary syndrome, pericarditis, ischemic bowel, irritable bowel disease, irritable bowel syndrome, appendicitis, diverticulitis, malignancy, hernia, urinary tract infection, torsion, perforation, trauma, infectious. Patient is a 42-year-old male who presents to ER for x-ray which shows a large stool burden. This was reviewed by myself was performed earlier. 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 Vitals are unremarkable. Abdominal exam is completely benign. He has not been complaining of any belly pain. Labs were obtained and CBC along with BMP, LFTs, bilirubin lipase is normal. UA was negative. Following this he was given an enema. He did have a bowel movement. He was discharged with instructions for MiraLAX. His mother was at bedside. On repeat evaluation he had again no abdominal tenderness. Discussed with parent concerning signs and symptoms to watch out for. Parent was instructed to follow up with their PCP and discussed with the parent their option to return to the ED at anytime for persistent or worsening symptoms. The appropriate anticipatory guidance and out-patient management, including indications for return to the emergency department, were explained at length to the parent and understood. Medication Reconcilliation Current Medication List: was personally reviewed by me Blood Pressure Screening Patient's blood pressure: Normal blood pressure Impression Primary Impression: Constipation Scribe Attestation The scribe's documentation has been prepared under my direction and personally reviewed by me in its entirety. I confirm that the note above accurately reflects all work, treatment, procedures, and medical decision making performed by me. Departure Information Dispostion Home / Self-Care Referrals Selam Cedillo C.R.N.P. (PCP) Patient Instructions ED Constipation, [facility] Additional Instructions Please follow up with your primary care doctor with in the next 24 hours. Any worsening of your symptoms, please return to the ED immediately. This includes any fevers greater than 100.4, worsening pain, chest pain, shortness breath, persistent nausea, vomiting, blood in her stool, unable to eat or drink, or any other concerning signs or symptoms from your standpoint. Please drink magnesium citrate when you get home today. If you do not have a bowel movement within 12 hours please purchase 250 g of MiraLAX. Mix this with 64 ounces of Gatorade. Please drink 8 ounces every 15-30 minutes until he has a bowel movement. At this time he will have diarrhea. Please stop the MiraLAX. Problem Qualifiers Primary Impression: Constipation Constipation type: unspecified constipation type Qualified Codes: K59.00 - Constipation, unspecified
== END 2017-09-18 18:56 | disposition home or self-care (01) ==
LOC: C.EDB 15:09 → C.EDC 18:56
DX: K59.00 Constipation, unspecified (principal); Z90.49 Acquired absence of other specified parts of digestive tract; Z86.010 Personal history of colon polyps

== ENCOUNTER → 2017-09-18 | Outpatient (CLI) | payer OTHER, BC ==
[~2017-09-18] MED LIST changes: +LEVO5TAB2 PO; +MIRA1TAB3 PO; +[UNRECOGNIZED DRUG - CODE] OTB; -[UNRECOGNIZED DRUG - CODE] OTB
--- NOTE | 2017-09-18 10:28 | DIAGNOSTIC IMAGING REPORT ---
ABDOMEN 2 VIEWS CLINICAL HISTORY: 42 years-old Male presenting with K59.00 Constipation obstruction series , no BM for 2 days. TECHNIQUE: Upright and supine views of the abdomen were obtained. COMPARISON: 11/25/[address] from 12/01/2016. FINDINGS: Large stool burden in the left colon and rectum. Gaseous distention of the splenic flexure. Anastomosis noted in the right abdomen. No pneumoperitoneum. No gross evidence of pneumatosis or portal venous gas. Right nephrolithiasis Osseous structures normal. Lung bases clear. IMPRESSION: 1. Findings consistent with constipation with large stool burden in the left colon and rectum. Electronically signed by: Ron Lr M.D. 09/18/2017 10:26 AM Dictated Date/Time: 09/18/2017 10:24 AM
== END | disposition home or self-care (01) ==
LOC: C.RAD 10:02
PROVIDERS: ATTEND Internal Medicine
DX: K59.00 Constipation, unspecified (principal)

== ENCOUNTER → 2017-10-21 | Outpatient (CLI) | payer OTHER, BC ==
[~2017-10-21] MED LIST changes: +CYAN10005 PO; +FLUT0.15 NAE; -LEVO-14 PO; +LEVO5TAB2 PO; +MIRA1TAB3 PO; -PRVDB TOP; +[UNRECOGNIZED DRUG - CODE] OTB
[2017-10-21 15:26] LABS: BASO % 0.4 %; BASO ABS # 0.02 K/uL (0-0.2); COMPLETE YES; EOS % 2.1 %; HEMATOCRIT 38.5 % (42-52); IG% 0.2 %; LYMPH % 26.6 %; LYMPH ABS # 1.39 K/uL (1.2-3.4); MEAN CELL VOLUME 95.8 fL (80-100); MEAN CORPUSCULAR HEMOGLOBIN 32.1 pg (25-34); MEAN CORPUSCULAR HGB CONC 33.5 g/dl (32-36); MEAN PLATELET VOLUME 11.8 fL (7.4-10.4); MONO % 5.7 %; PLATELET COUNT 139 K/uL (130-400); RED BLOOD COUNT 4.02 M/uL (4.7-6.1); WHITE BLOOD COUNT 5.23 K/uL (4.8-10.8)
[2017-10-21 15:49] LABS: ALT/SGPT 22 U/L (12-78); AST/SGOT 13 U/L (15-37); BLOOD UREA NITROGEN 18 mg/dl (7-18); BUN/CREATININE RATIO 23.9 (10-20); CALCIUM 8.8 mg/dl (8.5-10.1); CARBON DIOXIDE 29 mmol/L (21-32); CHLORIDE 107 mmol/L (98-107); CREATININE 0.77 mg/dl (0.60-1.40); GLUCOSE 87 mg/dl (70-99); SODIUM 141 mmol/L (136-145)
[2017-10-21 15:52] LABS: ALKALINE PHOSPHATASE 89 U/L (45-117)
== END | disposition home or self-care (01) ==
LOC: C.LAB1850 14:08
PROVIDERS: ATTEND Psychiatry & Neurology Neurology
DX: G40.909 Epilepsy, unspecified, not intractable, without status epilepticus (principal); Z51.81 Encounter for therapeutic drug level monitoring; Z79.899 Other long term (current) drug therapy

== ENCOUNTER → 2018-02-01 | Outpatient (CLI) | payer OTHER, BC ==
[2018-02-01 16:32] LABS: BASO % 0.2 %; BASO ABS # 0.01 K/uL (0-0.2); EOS % 2.4 %; EOS ABS # 0.12 K/uL (0-0.5); HEMATOCRIT 36.9 % (42-52); HEMOGLOBIN 12.2 g/dL (14.0-18.0); IG# 0.01 K/uL (0.00-0.02); LYMPH % 24.1 %; LYMPH ABS # 1.19 K/uL (1.2-3.4); MEAN CELL VOLUME 96.1 fL (80-100); MEAN CORPUSCULAR HEMOGLOBIN 31.8 pg (25-34); MEAN CORPUSCULAR HGB CONC 33.1 g/dl (32-36); MEAN PLATELET VOLUME 11.9 fL (7.4-10.4); MONO % 6.1 %; NEUT ABS # 3.31 K/uL (1.4-6.5); PLATELET COUNT 127 K/uL (130-400); RED CELL DISTRIBUTION WIDTH CV 14.6 % (11.5-14.5); RED CELL DISTRIBUTION WIDTH SD 51.1 fL (36.4-46.3); WHITE BLOOD COUNT 4.94 K/uL (4.8-10.8)
== END | disposition home or self-care (01) ==
LOC: C.LAB1850 15:00
PROVIDERS: ATTEND Internal Medicine Hematology & Oncology
DX: D64.9 Anemia, unspecified (principal)

== ENCOUNTER → 2018-02-21 | Day surgery (SDC) | payer OTHER, BC ==
[2018-02-11 08:53] VITALS: Ht 165.1 cm; Wt 84.6 kg
--- NOTE | 2018-02-11 16:55 | PAT Medication Instructions ---
Service Date Feb 11, 2018. Current Home Medication List Acetaminophen (Tylenol), 1 TAB PO BID PRN for Pain Carbamide Peroxide (Otic) (Ear Drops Earwax Removal), 5-10 DROPS OTB WK Cyanocobalamin (Vitamin B-12), 1,000 MCG PO QAM Docusate Sodium (Stool Softener), 1 TAB PO BID Fluticasone Propionate (Nasal) (Allergy Nasal [place] 24 Ho), 1 SPRAY WOL[place] DAILY PRN for Nasal Congestion Lactic Acid (Ammonium Lactate) (Ammonium Lactate), 1 APPLN TOP BID Levocetirizine Dihydrochloride (Xyzal), 1 TAB PO DAILY PRN for CONGESTION Mirabegron (Myrbetriq Er), 50 MG PO QAM Polyethylene Glycol 3350 (Miralax), 17 GM PO DIRECTED PRN for Constipation [Phenobarbital], 129.6 MG PO HS Medication Instructions For Your Scheduled Surgery -Continue as directed: Carbamide Peroxide (Otic) (Ear Drops Earwax Removal), 5-10 DROPS OTB WK - Hold the following medications 24 hours prior to surgery: Lactic Acid (Ammonium Lactate) (Ammonium Lactate), 1 APPLN TOP BID - Hold the following medications the morning of surgery: Cyanocobalamin (Vitamin B-12), 1,000 MCG PO QAM Docusate Sodium (Stool Softener), 1 TAB PO BID Mirabegron (Myrbetriq Er), 50 MG PO QAM Polyethylene Glycol 3350 (Miralax), 17 GM PO DIRECTED PRN for Constipation - Take the following medications the morning of surgery with a sip of water: Acetaminophen (Tylenol), 1 TAB PO BID PRN for Pain (if needed, can be taken up to four hours before surgery) Fluticasone Propionate (Nasal) (Allergy Nasal [place] 24 Ho), 1 SPRAY [place] DAILY PRN for Nasal Congestion (if needed) Levocetirizine Dihydrochloride (Xyzal), 1 TAB PO DAILY PRN for CONGESTION (if needed) - Take the following medications as scheduled the night before surgery: Acetaminophen (Tylenol), 1 TAB PO BID PRN for Pain (if needed) Docusate Sodium (Stool Softener), 1 TAB PO BID Fluticasone Propionate (Nasal) (Allergy Nasal [place] 24 Ho), 1 SPRAY [place] DAILY PRN for Nasal Congestion (if needed) Levocetirizine Dihydrochloride (Xyzal), 1 TAB PO DAILY PRN for CONGESTION (if needed) Polyethylene Glycol 3350 (Miralax), 17 GM PO DIRECTED PRN for Constipation ( if needed) [Phenobarbital], 129.6 MG PO HS If you have any questions please call us at [phone] or [phone] or [phone]
[~2018-02-21] VITALS: Ht 165.1 cm; Wt 84.6 kg
[~2018-02-21] MED LIST changes: +ACET-1256 PO; +DOCU100T7 PO; +EpHEDrine SULFATE 50MG/5ML SYR ONE; -FLUT0.15 NAE; +FLUT50SP45 NAE; +MIDAZOLAM HCL 1 MG/ML 2ML VIAL ONE; +PROPOFOL IV EMULSION 10 MG/ML 20 ML VIAL IV ONE
--- NOTE | 2018-02-21 11:39 | Endo History and Physical ---
History & Physical Date of Service: Feb 21, 2018. Chief Complaint: f/u colon mass Referring Physician: Dr. Joaquin Odonnell History of Present Illness 42 yo CM who presents for colonoscopy secondary to history of colon mass. Past Surgical History Hx Cardiac Surgery: No Hx Internal Defibrillator: No Hx Pacemaker: No Hx Abdominal Surgery: Yes (RT HEMICOLECTOMY) Hx of Implantable Prosthesis: No Hx Post-Op Nausea and Vomiting: No Hx Cancer Surgery: No Hx Thoracic Surgery: No Hx Orthopedic: No Hx Urinary Tract Surgery: No Social History Smoking Status: Never Smoker Hx Substance Use: No Hx Alcohol Use: No Allergies Coded Allergies: Brompheniramine (Verified Allergy, Unknown, UNKNOWN, 02/11/18) Phenylpropanolamine (Verified Allergy, Unknown, UNKNOWN, 02/11/18) Current Medications Reported Home Medications Medications Dose Route/Sig Max Daily Dose Days Date Category Dose Instructions Xyzal (Levocetirizine Dihydrochloride) 5 Mg Tab 1 Tab PO DAILY PRN 02/11/18 Reported Allergy Nasal [place] 24 Ho (Fluticasone Propionate (Nasal)) 50 Mcg/Act Spr 1 [place] WOLFGANG DAILY PRN 02/11/18 Reported Miralax (Polyethylene Glycol 3350) 1 Pow Pow 17 Gm PO DIRECTED PRN 02/11/18 Reported Tylenol (Acetaminophen) 500 Mg Tab 1 Tab PO BID PRN 02/11/18 Reported Stool Softener (Docusate Sodium) 100 Mg Tab 1 Tab PO BID 02/11/18 Reported Myrbetriq Er (Mirabegron) 50 Mg Tab 50 Mg PO QAM 09/18/17 Reported [Phenobarbital] 129.6 Mg PO HS 01/04/17 Reported TAKES 2 TABS 64.8MG EACH Ammonium Lactate (Lactic Acid (Ammonium Lactate)) 12 % Lot 1 Appln TOP BID 11/25/16 Reported Vitamin B-12 (Cyanocobalamin) 1,000 Mcg Tab 1,000 Mcg PO QAM 11/03/16 Reported Ear Drops Earwax Removal (Carbamide Peroxide (Otic)) 6.5 % [place] 5-10 Drops OTB WK 11/03/16 Reported [place]ED[place]YS Vital Signs Weight (Kilograms): 84.64 Height (Feet): 5 Height (Inches): 5 Date Time Temp Pulse Resp B/P (MAP) Pulse Ox O2 Delivery O2 Flow Rate FiO2 4/16/18 10:35 36.5 70 16 127/82 (97) 94 Room Air Physical Exam General Appearance: WD/WN, no apparent distress Respiratory/Chest: Auscultation: breath sounds normal Cardiovascular: Heart Auscultation: RRR Abdomen: Bowel Sounds: normal Inspection & Palpation: soft, non-distended, no tenderness, guarding & rebound Assessment and Plan Assessment: 42 yo CM who presents for colonoscopy secondary to history of colon mass. Plan: Proceed with colonoscopy.
--- NOTE | 2018-02-21 12:10 | Discharge Instructions ---
Endoscopy Patient Instructions Date / Procedure(s) Performed Feb 21, 2018. Colonoscopy Allergy Information Coded Allergies: Brompheniramine (Verified Allergy, Unknown, UNKNOWN, 02/11/18) Phenylpropanolamine (Verified Allergy, Unknown, UNKNOWN, 02/11/18) Discharge Date / Findings Feb 21, 2018. Normal colonoscopy with evidence of prior resection Medication Instructions Stopped Medication(s): Patient was told to not take any medications this am per his caregiver from [place]. OK to resume all medications today as prescribed Reported Home Medications Medications Dose Route/Sig Max Daily Dose Days Date Category Dose Instructions Xyzal (Levocetirizine Dihydrochloride) 5 Mg Tab 1 Tab PO DAILY PRN 02/11/18 Reported Allergy Nasal [place] 24 Ho (Fluticasone Propionate (Nasal)) 50 Mcg/Act Spr 1 [place] WOLFGANG DAILY PRN 02/11/18 Reported Miralax (Polyethylene Glycol 3350) 1 Pow 17 Gm PO DIRECTED PRN 02/11/18 Reported Tylenol (Acetaminophen) 500 Mg Tab 1 Tab PO BID PRN 02/11/18 Reported Stool Softener (Docusate Sodium) 100 Mg Tab 1 Tab PO BID 02/11/18 Reported Myrbetriq Er (Mirabegron) 50 Mg Tab 50 Mg PO QAM 09/18/17 Reported [Phenobarbital] 129.6 Mg PO HS 01/04/17 Reported TAKES 2 TABS 64.8MG EACH Ammonium Lactate (Lactic Acid (Ammonium Lactate)) 12 % Lot 1 Appln TOP BID 11/25/16 Reported Vitamin B-12 (Cyanocobalamin) 1,000 Mcg Tab 1,000 Mcg PO QAM 11/03/16 Reported Ear Drops Earwax Removal (Carbamide Peroxide (Otic)) 6.5 % [place] 5-10 Drops OTB WK 11/03/16 Reported [place] Provider Instructions Activity Restrictions - No exercising or heavy lifting for 24 hours. - Do not drink alcohol the day of the procedure. - Do not drive a car or operate machinery until the day after the procedure. - Do not make any important decisions or sign important papers in 24 hours after the procedure. Following Day: - Return to full activity which may include returning to work/school. Diet Start your diet with liquids and light foods (jello, soup, juice, toast). Then eat your usual diet if not nauseated. Treatment For Common After Affects For mild abdominal pain, bloating, or excessive gas: - Rest - Eat lightly - Lie on right side Follow-Up Information Follow-up with Dr. Joaquin Odonnell as scheduled Anesthesia Information What You Should Know You have had a procedure that required some medicine to reduce anxiety and discomfort. This treatment is called moderate sedation. After receiving the treatment, you may be sleepy, but you will be able to breathe on your own. The effects of the treatment may last for several hours. Follow these instructions along with Activity/Diet recommendations noted above: * Do NOT do anything where dizziness or clumsiness would be dangerous. * Rest quietly at home today, then you can be up and about tomorrow. * Have a responsible person stay with you the rest of today. * You may have had an I.V. today. If so, you may take the dressing off later today. Recommendations Call your doctor if: * Trouble breathing * Continuous vomiting for more than 24 hours * Temperature above 101 degrees * Severe abdominal pain or bloating * Pain not relieved by pain medicine ordered * There is increased drainage or redness from any incision * A large amount of rectal bleeding greater than 2-3 tablespoons. (If you had a polyp/s removed or have hemorrhoids, a small amount of blood - from the rectum is to be expected.) * You have any unanswered questions or concerns. IN THE EVENT OF A SERIOUS EMERGENCY, GO TO THE NEAREST EMERGENCY ROOM Your discharge instructions were prepared by provider Stanton Guthrie. Patient Instructions Signature Page Adan Myrick Patient (or Guardian) Signature/Date: I have read and understand the instructions given to me by my caregivers. Caregiver/RN/Doctor Signature/Date: The above-named patient and/or guardian has received patient instructions on this date. + Original Patient Signature Page (only) stays with chart. Please make copy for patient.
[2018-02-21 12:37] VITALS: BP 126/77; PULSE 65; O2SAT 100
--- NOTE | 2018-02-21 12:55 | Anesthesiology Progress Note ---
Anesthesia Post Op Note Date & Time Feb 21, 2018 at 12:55 Vital Signs Pain Intensity: 0 Vital Signs Past 12 Hours Date Time Temp Pulse Resp B/P (MAP) Pulse Ox O2 Delivery O2 Flow Rate FiO2 02/21/18 12:37 65 18 126/77 (93) 100 Room Air 02/21/18 12:24 72 18 116/72 (87) 100 Room Air 02/21/18 12:08 36.0 74 16 127/78 (94) 99 Room Air 02/21/18 10:35 36.5 70 16 127/82 (97) 94 Room Air Notes Mental Status: alert / awake / arousable, participated in evaluation Pt Amnestic to Procedure: Yes Nausea / Vomiting: adequately controlled Pain: adequately controlled Airway Patency, RR, SpO2: stable & adequate BP & HR: stable & adequate Hydration State: stable & adequate Anesthetic Complications: no major complications apparent
--- NOTE | 2018-02-21 13:17 | GI REPORT ---
Procedure Date: 02/21/2018 11:28 AM THIS REPORT HAS BEEN AMENDED Addendum Number: 1 Addendum Date: 02/21/2018 4:20:01 PM Indication for this procedure is history of colon polyp with high grade dysplasia. Procedure: Colonoscopy Indications: Screening for colorectal malignant neoplasm Medicines: Monitored Anesthesia Care Complications: No immediate complications. Estimated Blood Loss: Estimated blood loss: none. Procedure: Pre-Anesthesia Assessment: - Prior to the procedure, a History and Physical was performed, and patient medications and allergies were reviewed. The patient's tolerance of previous anesthesia was also reviewed. The risks and benefits of the procedure and the sedation options and risks were discussed with the patient. All questions were answered, and informed consent was obtained. Prior Anticoagulants: The patient has taken no previous anticoagulant or antiplatelet agents. ASA Grade Assessment: III - A patient with severe systemic disease. After reviewing the risks and benefits, the patient was deemed in satisfactory condition to undergo the procedure. After I obtained informed consent, the scope was passed under direct vision. Throughout the procedure, the patient's blood pressure, pulse, and oxygen saturations were monitored continuously. The scope was introduced through the anus and advanced to the ileocolonic anastomosis. The colonoscopy was performed without difficulty. The patient tolerated the procedure well. The quality of the bowel preparation was good. The terminal ileum and the rectum were photographed. Findings: The perianal and digital rectal examinations were normal. There was evidence of a prior end-to-side ileo-colonic anastomosis in the ascending colon. This was patent and was characterized by healthy appearing mucosa. The anastomosis was traversed. The exam was otherwise without abnormality. Impression: - Patent end-to-side ileo-colonic anastomosis, characterized by healthy appearing mucosa. - The examination was otherwise normal. - No specimens collected. Recommendation: - Resume previous diet. - Continue present medications. - Repeat colonoscopy in 5 years for surveillance. - Return to primary care physician as previously scheduled. Stanton EstherAnel ClevelandDO 02/21/2018 12:07:45 PM This report has been signed electronically. Note Initiated On: 02/21/2018 11:28 AM I attest to the content of the Intraoperative Record and orders documented therein, exceptions below Stanton King Cleveland 02/21/2018 4:20:42 PM This report has been signed electronically.
== END | disposition home or self-care (01) ==
LOC: C.GI 10:09
PROVIDERS: ATTEND Internal Medicine
DX: Z09 Encounter for follow-up examination after completed treatment for conditions other than malignant neoplasm (principal); Z86.010 Personal history of colon polyps; Z90.89 Acquired absence of other organs; Z79.899 Other long term (current) drug therapy; Z98.890 Other specified postprocedural states

== ENCOUNTER → 2018-02-28 | Outpatient (CLI) | payer OTHER, BC ==
[~2018-02-28] MED LIST changes: -EpHEDrine SULFATE 50MG/5ML SYR ONE; -MIDAZOLAM HCL 1 MG/ML 2ML VIAL ONE; -PROPOFOL IV EMULSION 10 MG/ML 20 ML VIAL IV ONE
[2018-02-28 17:41] LABS: TRANSFERRIN 172 mg/dl (200-360)
== END | disposition home or self-care (01) ==
LOC: C.LAB1850 16:24
PROVIDERS: ATTEND Neuromusculoskeletal Medicine & OMM
DX: D64.9 Anemia, unspecified (principal)

== ENCOUNTER 2025-02-13 09:13 | Observation (INO) ==
--- NOTE | 2025-02-13 10:01 | Emergency Department Note ---
History of Present Illness General Chief complaint: Fall Stated complaint: FALL Time Seen by Provider: 02/13/25 09:49 History of Present Illness This is a 49-year-old male who presents to the emergency department via EMS accompanied by caregiver currently residing at [facility] with complaints of "fall". Caregiver at bedside provides much of the history. She notes that earlier today the patient was walking on the treadmill. He was in his usual state of health this morning and was quite happy as there was some snow flurries. She notes that the patient was walking on the treadmill at just under the normal pace and she witnessed the patient then "drop" onto the treadmill and then the belt Running causing him to then be pushed up against a wall/stairwell. Caregiver notes that when she went to assess the patient he seemed "dazed" as he was then getting up off of the floor. She is unsure why he fell as she did not witness any tripping. No recent illness. Home Medications Medication Instructions Recorded Confirmed Type ammonium lactate 12 % topical cream 1 appln topical BID 05/29/20 02/13/25 History fluoride (sodium) 1.1 % dental 1 applic dental BID 01/26/24 02/13/25 History paste levocetirizine 5 mg tablet 5 mg PO HS #90 tabs 04/14/24 02/13/25 Rx vitamin B complex-folic acid 0.4 1 tab PO DAILY #30 tabs 08/02/24 02/13/25 Rx mg tablet (B Complex 1 (with folic acid)) acetic acid 2 % ear solution 5 drp otic (ear) QAM #15 mL 08/31/24 02/13/25 Rx phenobarbital 60 mg tablet 120 mg (2 x 60 mg) PO QPM #60 tabs 10/17/24 02/13/25 Rx docusate sodium 100 mg capsule 100 mg PO BID 10/20/24 02/13/25 History (Dulcolax Stool Softener (docusate)) famotidine 40 mg tablet 40 mg PO QAM 10/20/24 02/13/25 History acetaminophen 500 mg tablet 500 mg PO Q6H PRN Pain/Fever 02/13/25 02/13/25 History carbamide peroxide 6.5 % ear drops 5 drp otic (ear) WK 02/13/25 02/13/25 History (Clinere Ear Wax Removal) fluticasone propionate 50 2 spray intranasal QAM 02/13/25 02/13/25 History mcg/actuation nasal spray,suspension (Flonase Allergy Relief) linaclotide 72 mcg capsule 72 mcg PO QAM #31 caps 02/13/25 Rx (Linzess) polyethylene glycol 3350 17 17 g PO BID PRN Constipation 02/13/25 02/13/25 History gram/dose oral powder Allergies Allergy/AdvReac Type Severity Reaction Status Date / Time brompheniramine AdvReac Unknown interferes Verified 02/13/25 11:44 with phenobarbitol phenylpropanolamine AdvReac Unknown interferes Verified 02/13/25 11:44 with phenobarbitol Past Med/Surg History Problem List (Updated 02/13/25 @ 18:51 by Rishabh Grijalva PA-C) Syncope Left humeral fracture (Acute) Fall (Acute) Prostate cancer screening (Chronic) Pneumonia Incontinence (Chronic) Cerumen impaction Nephrolithiasis (Chronic) Recurrent incisional hernia Colonic mass Constipation Fecal retention on CT scan Will order Dulcolax suppository now and continue home PO Stool softener this evening. Patient may need further bowel regimen postoperatively including possible enema. Obstipation Ventral incisional hernia Hernia Anemia Anxiety Mental retardation Ventral hernia with bowel obstruction Urinary frequency Urge incontinence of urine (Chronic) Seizure disorder Obesity (BMI 30.0-34.9) Mass of hepatic flexure of colon Foot callus Dermatitis, seborrheic [place] or callus Neal hemangioma Cardiomegaly Allergic rhinitis Acquired intellectual disability (Acute) Dysfunction of eustachian tube Shingles Conductive hearing loss in right ear Congestion of nasal sinus Mixed conductive and sensorineural hearing loss of left ear with restricted hearing of right ear Eczema Medical History History of fecal impaction History of intestinal obstruction Constipation GERD (gastroesophageal reflux disease) Seizure disorder Surgical History Surgical history unknown H/O myringotomy Family History Other Family history non-contributory No significant family history Denies family history of Malignant hyperthermia Ovarian cancer Prostate cancer Myocardial infarction Adverse anesthesia outcome Breast cancer Bleeding disorder Colorectal cancer Social History Smoking Status: Never smoker Second Hand Exposure: No; Do You Dip or Chew Tobacco: No; Hx Alcohol Use: No Hx Substance Use: No Preferred Language: Senegalese Communication Ability: Impaired Communication Ability Comment: Pt is able to talk but is slow to answer. 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: No Beliefs That Will Affect Care: None marital status: Single Current Living Situation: Personal Care Facility Current Living Situation Comment: Pt lives at [facility] current occupational status: employed and unemployed current occupation: Works one day a week at [employer] Day Feels Safe at Home: Yes Safety Concerns: Feels Safe At This Time Childhood Exposure to Second-Hand Smoke: No Diet: other Diet Comment: 1800 calorie caffeine: No during the past year weight has: remained stable Dental Care, Regularly: Yes Physical Activity Frequency: Daily Seatbelt Use: always Sunscreen Use: Yes Assistive Devices: Glasses Review of Systems A total of 10 systems reviewed and were otherwise negative Physical Exam Vital Signs Vital Signs - 24 hr 02/13/25 09:07 02/13/25 10:18 02/13/25 10:41 Temperature 36.4 C L Temperature Source Oral Pulse Rate 74 63 Pulse Rate from SpO2 Sensor Respiratory Rate 18 Respiratory Effort / Characteristics Non-Labored Spontaneous Respiratory Depth Normal Respiratory Pattern Regular Blood Pressure 115/75 Blood Pressure Mean 88 Pulse Oximetry 100 100 Oxygen Delivery Method Room Air Room Air Sepsis Recent Fever Within 48 Hours No Sepsis New/Unexplained Change in Mental Status N/A Sepsis Action Taken by Nursing No Action Required 02/13/25 10:54 02/13/25 11:00 02/13/25 11:00 Temperature Temperature Source Pulse Rate 58 L 68 Pulse Rate from SpO2 Sensor 58 L 66 Respiratory Rate 11 L 13 Respiratory Effort / Characteristics Respiratory Depth Respiratory Pattern Blood Pressure 106/74 Blood Pressure Mean 92 Pulse Oximetry 100 100 Oxygen Delivery Method Sepsis Recent Fever Within 48 Hours Sepsis New/Unexplained Change in Mental Status Sepsis Action Taken by Nursing 02/13/25 11:57 02/13/25 12:00 02/13/25 12:06 Temperature Temperature Source Pulse Rate 62 88 Pulse Rate from SpO2 Sensor 62 Respiratory Rate 14 15 Respiratory Effort / Characteristics Respiratory Depth Respiratory Pattern Blood Pressure 117/68 Blood Pressure Mean 84 Pulse Oximetry 100 Oxygen Delivery Method Sepsis Recent Fever Within 48 Hours Sepsis New/Unexplained Change in Mental Status Sepsis Action Taken by Nursing 02/13/25 12:30 02/13/25 13:00 02/13/25 13:03 Temperature Temperature Source Pulse Rate 69 65 Pulse Rate from SpO2 Sensor 69 62 Respiratory Rate 15 16 Respiratory Effort / Characteristics Respiratory Depth Respiratory Pattern Blood Pressure 117/74 Blood Pressure Mean 95 Pulse Oximetry 100 99 Oxygen Delivery Method Sepsis Recent Fever Within 48 Hours Sepsis New/Unexplained Change in Mental Status Sepsis Action Taken by Nursing VITAL SIGNS - Vital signs and nursing notes were reviewed. Stable and afebrile. GENERAL -49-year-old male appearing his stated age who is in no acute distress. Communicates with minimal words. SKIN - Without rashes. No meningeal or petechial rash. HEAD - Normocephalic, Atraumatic. No Toledo's Sign or Raccoon's Eyes. No depressed skull fractures palpable. EYES - PERRL with EOMI bilaterally. Without subconjunctival hemorrhage. Palpebral conjunctiva pink and moist with no injection. EARS - No deformities of external structures noted on gross examination bilaterally. No hemotympanum present. No tympanic perforation noted. Handle of malleus, umbo, cone of light, pars tensa/flaccid all easily visualized. NOSE - Midline and without cyanosis. No epistaxis or clear watery discharge noted. Septum midline without deviation. No septal hematoma noted. No overlying ecchymosis noted. MOUTH/OROPHARYNX - Without perioral cyanosis. Tongue midline with equal elevation of palate bilaterally. No blood noted in the oropharynx. No tonsillar hypertrophy, erythema, or exudates noted. No dental fractures noted. NECK - Cervical collar in place. No tenderness to palpation over the cervical spinous processes. No cervical paraspinal muscle tenderness noted. LUNGS - Chest wall symmetric without accessory muscle use, intercostals retractions, or central cyanosis. No flail chest or depressed fractures noted. No paradoxical chest wall movements noted. No tenderness to palpation across the anterior and posterior chest kathleen. No tenderness with deep inspiration noted against the examiner's applied pressure to the lateral chest kathleen. Normal vesicular breath sounds CTA B/L. No wheezes, rales, or rhonchi appreciated. CARDIAC - RRR with S1/S2. No murmur, rubs, or gallops appreciated. ABDOMEN - Abdominal contour and without pulsations or visible masses. BS normoactive all four quadrants. No rebound tenderness or guarding noted. Negative Javier's or Gamboa Vang's Signs. No tenderness, palpable masses, hepatosplenomegaly, or ascites noted. EXTREMITIES - No gross deformities noted of the extremities. No tenderness to palpation upper or lower extremities. +5/5 strength noted in UE/LE bilaterally. NEUROLOGIC - Cranial nerves II through XII grossly intact. PSYCH -alert, and pleasant on exam Course Administered Medications Acetaminophen (Acetaminophen 325 Mg Tab) 650 mg PO Q6H GO Stop: 03/15/25 16:59 Last Admin: 02/13/25 17:58 Dose: 650 mg Documented By: ESL Discontinued Medications Magnesium Sulfate/Dextrose (Magnesium Sulfate / D5w) 1 gm in 100 mls @ 50 mls/hr IV ONE ONE Stop: 02/13/25 14:41 Last Infusion: 02/13/25 15:42 Dose: Infused Documented By: Admin: 02/13/25 13:39 Dose: 50 mls/hr Documented By: NRB Potassium Chloride (Potassium Chloride 10 Meq Tabcr) 10 meq PO NOW STA Stop: 02/13/25 13:37 Last Admin: 02/13/25 14:14 Dose: 10 meq Documented By: TNK Medical Decision Making Laboratory Data 02/13/25 10:15 02/13/25 10:15 Lab Results 02/13/25 02/13/25 02/13/25 Range/Units 10:15 11:40 11:45 WBC 5.99 (4.8-10.8) K/ul RBC 3.59 L (4.70-6.10) M/uL Hgb 11.4 L (14.0-18.0) g/dl Hct 35.3 L (42.0-52.0) % MCV 98.3 (80.0-100.0) fL MCH 31.8 (25.0-34.0) pg MCHC 32.3 (32.0-36.0) g/dL RDW Std Deviation 53.8 H (36.4-46.3) fL RDW Coeff of Millicent 15.1 H (11.5-14.5) % Plt Count 98 L (130-400) K/uL MPV 11.6 (9.4-12.4) fL Immature Gran % (Auto) 0.3 % Neut % (Auto) 66.2 % Lymph % (Auto) 29.5 % Glenn % (Auto) 3.3 % Eos % (Auto) 0.5 % Baso % (Auto) 0.2 % Neut # (Auto) 3.96 (1.40-6.50) K/uL Lymph # (Auto) 1.77 (1.20-3.40) K/uL Glenn # (Auto) 0.20 (0.11-0.59) K/uL Eos # (Auto) 0.03 (0.00-0.50) K/uL Baso # (Auto) 0.01 (0.00-0.20) K/uL Immature Gran # (Auto) 0.02 (0.01-0.20) K/uL PT 11.2 (9.0-12.0) Seconds INR 1.0 (0.9-1.1) APTT 27 (21-31) Seconds PTT Ratio 1.0 Sodium 144 (136-145) mmol/L Potassium 3.9 (3.5-5.1) mmol/L Chloride 110 H (98-107) mmol/L Carbon Dioxide 28 (21-32) mmol/L Anion Gap 6 (3-11) BUN 22 (6-23) mg/dl Creatinine 0.79 (0.6-1.4) mg/dl Est Cr Clr Drug Dosing 109.3 ml/min eGFR 108.23 BUN/Creatinine Ratio 27.8 H (10-20) Glucose 124 H (70-99(Fasting)) mg/dl Calcium 9.4 (8.6-10.3) mg/dl Magnesium 1.8 (1.7-2.4) mg/dl Total Bilirubin 0.3 (0.2-1.0) mg/dl AST 17 (13-39) U/L ALT 12 (7-52) U/L Alkaline Phosphatase 75 (34-104) U/L Troponin I High Sens 2.9 (0-20) pg/ml Total Protein 6.4 (6.0-8.3) gm/dl Albumin 4.3 (3.4-5.0) gm/dl Globulin 2.1 L (2.5-4.0) gm/dl Albumin/Globulin Ratio 2.0 (0.9-2) Lipase 11 (11-82) U/L TSH 1.785 (0.300-4.500) uIu/ml Urine Color Dark Yellow Urine Appearance Clear (Clear) Urine pH 6.5 (4.5-7.5) Ur Specific [place] 1.018 (1.000-1.030) Urine Protein Negative (Negative) Urine Glucose (UA) Negative (Negative) Urine Ketones Negative (Negative) Urine Blood Negative (Negative) Urine Nitrite Negative (Negative) Urine Bilirubin Negative (Negative) Urine Urobilinogen Negative (Negative) Ur Leukocyte Esterase Negative (Negative) SARS-CoV-2 (PCR) NEGATIVE (Negative) 02/13/25 Range/Units 12:56 WBC (4.8-10.8) K/ul RBC (4.70-6.10) M/uL Hgb (14.0-18.0) g/dl Hct (42.0-52.0) % MCV (80.0-100.0) fL MCH (25.0-34.0) pg MCHC (32.0-36.0) g/dL RDW Std Deviation (36.4-46.3) fL RDW Coeff of Millicent (11.5-14.5) % Plt Count (130-400) K/uL MPV (9.4-12.4) fL Immature Gran % (Auto) % Neut % (Auto) % Lymph % (Auto) % Glenn % (Auto) % Eos % (Auto) % Baso % (Auto) % Neut # (Auto) (1.40-6.50) K/uL Lymph # (Auto) (1.20-3.40) K/uL Glenn # (Auto) (0.11-0.59) K/uL Eos # (Auto) (0.00-0.50) K/uL Baso # (Auto) (0.00-0.20) K/uL Immature Gran # (Auto) (0.01-0.20) K/uL PT (9.0-12.0) Seconds INR (0.9-1.1) APTT (21-31) Seconds PTT Ratio Sodium (136-145) mmol/L Potassium (3.5-5.1) mmol/L Chloride (98-107) mmol/L Carbon Dioxide (21-32) mmol/L Anion Gap (3-11) BUN (6-23) mg/dl Creatinine (0.6-1.4) mg/dl Est Cr Clr Drug Dosing ml/min eGFR BUN/Creatinine Ratio (10-20) Glucose (70-99(Fasting)) mg/dl Calcium (8.6-10.3) mg/dl Magnesium (1.7-2.4) mg/dl Total Bilirubin (0.2-1.0) mg/dl AST (13-39) U/L ALT (7-52) U/L Alkaline Phosphatase (34-104) U/L Troponin I High Sens < 2.3 (0-20) pg/ml Total Protein (6.0-8.3) gm/dl Albumin (3.4-5.0) gm/dl Globulin (2.5-4.0) gm/dl Albumin/Globulin Ratio (0.9-2) Lipase (11-82) U/L TSH (0.300-4.500) uIu/ml Urine Color Urine Appearance (Clear) Urine pH (4.5-7.5) Ur Specific [place] (1.000-1.030) Urine Protein (Negative) Urine Glucose (UA) (Negative) Urine Ketones (Negative) Urine Blood (Negative) Urine Nitrite (Negative) Urine Bilirubin (Negative) Urine Urobilinogen (Negative) Ur Leukocyte Esterase (Negative) SARS-CoV-2 (PCR) (Negative) Imaging Data Radiologist's Impression: Chest X-Ray 02/13/25 09:56 XR chest 1V portable CLINICAL HISTORY: fall while on treadmill COMPARISON STUDY: 01/23/2025 FINDINGS: There is stable moderate cardiomegaly without pulmonary vascular congestion. No effusion, consolidation, or pneumothorax. There is an interval fracture at the greater tuberosity of the left humeral head. IMPRESSION: 1. Fracture at the left humeral head. 2. No other acute findings seen in the chest. ACT 112: Negative or not required by law. Electronically signed by: Brian Jacobo M.D. 02/13/2025 10:[address] 02/13/25 09:56 CT head/brain wo con CLINICAL HISTORY: fall on treadmill. TECHNIQUE: Multiple axial CT images of the head were obtained without contrast. A dose lowering technique was utilized adhering to the principles of ALARA. CT DOSE: 2374.14 mGy.cm COMPARISON: 01/23/2025 FINDINGS: There is motion artifact. There are stable bilateral subdural CSF density collections measuring 11 mm maximal thickness on the coronal imaging. Stable minimal left to right midline shift. No acute intracranial hemorrhage seen. No hydrocephalus. Stable mucosal thickening at the right maxillary sinus. No skull fracture. IMPRESSION: 1. No acute findings. 2. 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 ACT 112: Negative or not required by law. The above report was generated using voice recognition software. It may contain grammatical, syntax or spelling errors. Electronically signed by: Brian Jacobo M.D. 02/13/2025 10:58 AM Shoulder X-Ray 02/13/25 11:51 XR shoulder LT min 2V routine CLINICAL HISTORY: Fall, L humeral head fx on cxr COMPARISON: None FINDINGS: There is an acute minimally displaced fracture at the greater tuberosity of the proximal humerus. No other fracture or dislocation seen. IMPRESSION: Acute fracture proximal humerus. ACT 112: Negative or not required by law. Electronically signed by: Brian Jacobo M.D. 02/13/2025 12:36 PM Shoulder X-Ray 02/13/25 13:03 XR shoulder LT 1V CLINICAL HISTORY: injury, transcapular lateral view requested COMPARISON: 02/13/2025 FINDINGS: There is mild anterior subluxation at the glenohumeral joint on the lateral views. Minimally displaced fracture at the greater tuberosity is redemonstrated. IMPRESSION: 1. Stable greater tuberosity fracture. 2. Mild anterior subluxation. ACT 112: Negative or not required by law. Electronically signed by: Brian Jacobo M.D. 02/13/2025 1:59 PM MDM Narrative Patient was seen and evaluated as above in room C10. Review was performed of nursing notes and vital signs. I did review pertinent previous visits and patient history. After obtaining a thorough history and physical examination the above work up was performed. History obtained per review of EMS sheet, strawberry mcgee accompanying medical documentation, caregiver at bedside and patient. Patient was on a treadmill today and fell straight down onto the treadmill and then backwards. Caregiver at bedside witnessed this and is unsure why he fell. No obvious trip and fall. Per review of the EMR patient was here last month and transferred to [facility] over concern for intracranial hemorrhage. Options of care were discussed with the patient and caregiver at bedside. IV access was established. Labs were drawn. I will proceed with a CT scan of the head and chest x-ray to further assess however will note there are no signs of trauma on my examination of the patient. CT head results as above and was stable overall. Chest x-ray does show a left humeral head fracture and additional radiographs will be obtained to further assess this. Patient does not seem to be in pain in regard to this injury. However does appear to be acute. Labs reveal no leukocytosis. There is mild stable anemia noted with hemoglobin at 11.4. There is no emergent metabolic disturbance. Mild hyperglycemia 124. Initial troponin negative. Lipase is normal. TSH was euthyroid state. Urinalysis is negative. COVID test is negative. The patient does not have any other findings on examination to suggest further injury. However noting the fall today while on the treadmill without obvious trip/other factor to cause I do believe that further assessment in the inpatient setting is warranted. I discussed this with the hospitalist service and subsequently discussed the fracture with Dr. Valdes of orthopedics. Left arm sling plus swath recommended. This was ordered. Please refer to further documentation regarding his stay. I did present to bedside to update patient and caregiver of the plan. I was going to also call mother to review findings and plan however caregiver at bedside noted that she was actively in the process of reaching out to both mother and facility. She notes that she will make the phone call. GCS: 15 In the evaluation and treatment of this patient the following differential diagnoses were entertained: Intracranial hemorrhage, skull fracture, C-spine injury, rib fracture, pneumothorax, long bone injury, among others. Impression & Plan Fall, Left humeral fracture Discharge Plan Visit Data Chief Complaint: Fall Stated Complaint: FALL ED Provider: Jhon Ray ED Midlevel Provider: Rishabh Grijalva Discharge Problem: Fall, Left humeral fracture Patient Disposition: Admitted As Inpatient Condition: Good Discharge Instructions Interventions: ED Discharge Assessment Last Done: 02/13/25 16:19
--- NOTE | 2025-02-13 10:26 | XRay Report ---
XR chest 1V portable CLINICAL HISTORY: fall while on treadmill COMPARISON STUDY: 01/23/2025 FINDINGS: There is stable moderate cardiomegaly without pulmonary vascular congestion. No effusion, c onsolidation, or pneumothorax. There is an interval fracture at the greater tuberosity of the left hu meral head. IMPRESSION: 1. Fracture at the left humeral head. 2. No other acute findings seen in the chest. ACT 112: Negative or not required by law. Electronically signed by: Brian Jacobo M.D. 02/13/2025 10:25 AM
[2025-02-13 10:40] LABS: Basophils # (auto) 0.01 K/uL (0.00-0.20); Basophils % (auto) 0.2 %; Eosinophils # (auto) 0.03 K/uL (0.00-0.50); Eosinophils % (auto) 0.5 %; Hematocrit (blood only) 35.3 % (42.0-52.0); Hemoglobin 11.4 g/dl (14.0-18.0); Immature Granulocytes # (auto) 0.02 K/uL (0.01-0.20); Immature Granulocytes % (auto) 0.3 %; Lymphocytes # (auto) 1.77 K/uL (1.20-3.40); Lymphocytes % (auto) 29.5 %; Mean Corpuscular Hemoglobin 31.8 pg (25.0-34.0); Mean Corpuscular Hgb Conc 32.3 g/dL (32.0-36.0); Mean Corpuscular Volume 98.3 fL (80.0-100.0); Mean Platelet Volume 11.6 fL (9.4-12.4); Monocytes % (auto) 3.3 %; Neutrophils # (auto) 3.96 K/uL (1.40-6.50); Neutrophils % (auto) 66.2 %; Platelet Count 98 K/uL (130-400); RDW Coefficient of Variation 15.1 % (11.5-14.5); RDW Standard Deviation 53.8 fL (36.4-46.3); Red Blood Count 3.59 M/uL (4.70-6.10); White Blood Count 5.99 K/ul (4.8-10.8)
[2025-02-13 10:53] LABS: Albumin Level 4.3 gm/dl (3.4-5.0); Bilirubin,Total 0.3 mg/dl (0.2-1.0); Calcium 9.4 mg/dl (8.6-10.3); Magnesium 1.8 mg/dl (1.7-2.4); Potassium 3.9 mmol/L (3.5-5.1)
[2025-02-13 10:59] LABS: BUN Creatinine Ratio 27.8 (10-20); Creatinine Clr Calc Pharmacy 109.3 ml/min; Globulin 2.1 gm/dl (2.5-4.0); Total Protein 6.4 gm/dl (6.0-8.3)
--- NOTE | 2025-02-13 10:59 | CT Scan Report ---
CT head/brain wo con CLINICAL HISTORY: fall on treadmill. TECHNIQUE: Multiple axial CT images of the head were obtained without contrast. A dose lowering tech nique was utilized adhering to the principles of ALARA. CT DOSE: 2374.14 mGy.cm COMPARISON: 01/23/2025 FINDINGS: There is motion artifact. There are stable bilateral subdural CSF density collections measu ring 11 mm maximal thickness on the coronal imaging. Stable minimal left to right midline shift. No a cute intracranial hemorrhage seen. No hydrocephalus. Stable mucosal thickening at the right maxillary sinus. No skull fracture. IMPRESSION: 1. No acute findings. 2. 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 ACT 112: Negative or not required by law. The above report was generated using voice recognition software. It may contain grammatical, syntax o r spelling errors. Electronically signed by: Brian Jacobo M.D. 02/13/2025 10:58 AM
[2025-02-13 11:04] LABS: Troponin I High Sensitivity 2.9 pg/ml (0-20)
[2025-02-13 11:07] LABS: Partial Thromboplastin Time 27 Seconds (21-31); Prothrombin Time 11.2 Seconds (9.0-12.0)
[2025-02-13 11:14] LABS: Thyroid Stimulating Hormone 1.785 uIu/ml (0.300-4.500)
--- NOTE | 2025-02-13 11:43 | History & Physical Report ---
<Statement entered by Lynnette Hardin MD - 02/13/25 14:55> I have reviewed vital signs, chart notes, labs and imaging. I have personally seen, evaluated and examined the patient. I have also discussed the management of the patient with the GRETCHEN and I agree with the exam findings documented in the history and physical examination and the documented assessment and plan unless otherwise stated below. 49-year-old man with intellectual disability typically has a steady gait he was exercising on the treadmill today when his caregiver witnessed him suddenly fall and shoot back on the tread mill hit his back on the wall. he was conscious when she got there to his side but he was dazed for about 10 minutes. There was no tonic-clonic activity no tongue biting no urinary incontinence. He does have a history of a seizure disorder and is on phenobarbital. He has no neck pain tolerates range of motion without any pain or tenderness, head CT was negative, shoulder x-ray shows a fracture with minimal displacement and subluxation. I reviewed EKG tracing there is a lot of baseline artifact it is normal sinus rhythm unclear if there are inferior Q waves, no acute ischemic changes. I personally reviewed the chest x-ray film it is clear there is a left proximal humerus fracture on my exam he is awake and alert, he is hard of hearing, he follows basic comm ands, caregivers at the bedside and provides most of the history, neck exam as discussed above, head is atraumatic I do not see any signs of injury he has a chronic right eye strabismus, PERRL, asymmetry of his mouth which is also chronic, left upper extremity is in a sling left hand is warm and well-perfused with 2+ radial pulses, chest clear to auscultation normal work of breathing, heart is regular no murmurs rubs or gallops, abdomen soft nontender nondistended, he moves his lower extremities well he has a minimal abrasion left knee however no deformity no tenderness no effusion, he has mild bilateral ankle edema which is chronic. I think this was probably a mechanical fall but it is prudent to rule out a syncopal event, I think it is unlikely that he had a seizure based on what his caregiver witnessed. He has a left proximal humerus fracture I think that this will be nonoperative, we have consulted Dr. Valdes, meanwhile pain control and immobilized in sling He may be able to return to [employer] [facility] [employer] tomorrow. Date of Service February 13, 2025 Assessment & Plan (1) Fall: (2) Seizure disorder: (3) Left humeral fracture: (4) Syncope: (5) Acquired intellectual disability: Plan This patient is a 49-year-old male with PMH of acquired intellectual disability who presented on the morning of 02/13 after sustaining a fall while walking on the treadmill. Coming in for a syncope workup + proximal left humeral head fracture. #Left humeral head fracture Noted on CXR Additional x-ray of the left shoulder ordered, pending Sling application/immobilization Orthopedic consult appreciated Clinically, patient denies pain on admission However, per grinder machine setter, patient is not the best at conveying his pain Acetaminophen 650 mg p.o. q6h scheduled while awake #Fall/syncope No blood thinners Unable to obtain history from patient, however grinder machine setter reports that the patient suddenly "dropped", more consistent with a syncopal episode While less likely, DDx also includes tripping while walking, and seizure (giv en patient's postictal state after the fall and history of seizures) Head CT on 02/13 revealed no acute findings; stable exam when compared to subdural hygromas from prior exam on 01/23 Echocardiogram ordered, pending Orthostatic vitals ordered, pending Fall precautions PT/OT evaluations appreciated Continuous telemetry monitoring for arrhythmias; monitor K + Mag #Remote history of subdural (hygromas vs subdural hematomas) Patient presented on 01/23 for recurrent falls Head CT on arrival revealed moderate sized bilateral subdural CSF attenuation collections and mild mass effect; age-indeterminate, but 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 Transferred to to [facility] at that time (01/24) Discharged shortly thereafter, as his subdural fluid collections are said to be chronic Additionally: Patient was treated for PNA + influenza A noted at [facility], and discharged on Tamiflu and antibiotics (Augmentin + azithromycin) Per case number neurosurgery visit on 01/31: low risk of complications unless expansion occurs #Acquired intellectual disability Noted; history obtained from grinder machine setter at bedside #Seizure disorder Last seizure was reportedly in 2004 Seizure precautions Continue phenobarbital Disposition: Admit to [facility] telemetry Regular diet VTE PPx: SCDs History of Present Illness Chief Complaint: Fall Primary Care Provider: DO Adan Paris is a 49-year-old male with PMH of acquired intellectual disability, shingles, seizure disorder, and anxiety. He presented on 02/13 after sustaining a fall while walking on a treadmill at [employer] this morning. History is obtained from patient's grinder machine setter (Christina) at bedside, as well as patient's mother over the phone. Per grinder machine setter, patient was in normal state of health this morning, and was excited about this now. He was walking on the treadmill at a setting of 1.6. Then, patient suddenly "dropped". Embossing Tool Setter did not witness him going down. He fell onto the treadmill and was pushed backwards on the conveyor belt, and likely struck his head against a wall. No blood thinners. Patient does report the events of this were "fuzzy", and he does bel ieve he lost consciousness momentarily. No prior history of syncope to caretakers knowledge. Both patient and nursing staff are unsure what caused him to fall; no tripping, no dizziness prior to fall. There was no witnessed seizure-like activity at this time; no jerking, tongue biting, or loss of urinary continence. However, patient was "dazed and confused" following the event; he was not unconscious immediately following this event, per grinder machine setter. Embossing Tool Setter denies any strokelike symptoms such as slurred speech, facial droop, unilateral deficits. Patient does have a history of seizures, but did take his regular seizure medicine last night (phenobarbital at 9 PM), and his last seizure was back in 2004 (20 years ago). Patient also took his regular morning medications today; no recent change in medications. Remote history of subdural hematoma 2 weeks ago requiring transfer to [place]. Prior to subdural, patient had 2 overnight falls while in his bedroom, and was having difficulty standing on his feet. Patient's vitals are stable at time admission. ED course: Difficult to obtain ROS given patient's underlying intellectual disability: Embossing Tool Setter reports that he does not do well in conveying pain Unclear on the left shoulder pain. However, patient/grinder machine setter does deny fever, chills, night sweats, chest pain, difficulty breathing, or abdominal pain. Allergies Allergy/AdvReac Type Severity Reaction Status Date / Time brompheniramine AdvReac Unknown interferes Verified 02/13/25 11:44 with phenobarbitol phenylpropanolamine AdvReac Unknown interferes Verified 02/13/25 11:44 with phenobarbitol Home Medications Medication Instructions Recorded Confirmed Type ammonium lactate 12 % topical cream 1 appln topical BID 05/29/20 02/13/25 History fluoride (sodium) 1.1 % dental 1 applic dental BID 01/26/24 02/13/25 History paste levocetirizine 5 mg tablet 5 mg PO HS #90 tabs 04/14/24 02/13/25 Rx vitamin B complex-folic acid 0.4 1 tab PO DAILY #30 tabs 08/02/24 02/13/25 Rx mg tablet (B Complex 1 (with folic acid)) acetic acid 2 % ear solution 5 drp otic (ear) QAM #15 mL 08/31/24 02/13/25 Rx phenobarbital 60 mg tablet 120 mg (2 x 60 mg) PO QPM #60 tabs 10/17/24 02/13/25 Rx docusate sodium 100 mg capsule 100 mg PO BID 10/20/24 02/13/25 History (Dulcolax Stool Softener (docusate)) famotidine 40 mg tablet 40 mg PO QAM 10/20/24 02/13/25 History linaclotide 72 mcg capsule 72 mcg PO QAM 01/23/25 02/13/25 History (Linzess) acetaminophen 500 mg tablet 500 mg PO Q6H PRN Pain/Fever 02/13/25 02/13/25 History carbamide peroxide 6.5 % ear drops 5 drp otic (ear) WK 02/13/25 02/13/25 History (Clinere Ear Wax Removal) fluticasone propionate 50 2 spray intranasal QAM 02/13/25 02/13/25 History mcg/actuation nasal spray,suspension (Flonase Allergy Relief) polyethylene glycol 3350 17 17 g PO BID PRN Constipation 02/13/25 02/13/25 History gram/dose oral powder Past Med/Surg History Problem List (Updated 02/13/25 @ 12:37 by Will Rose PA-C) Syncope Left humeral fracture Fall Prostate cancer screening (Chronic) Pneumonia Incontinence (Chronic) Cerumen impaction Nephrolithiasis (Chronic) Recurrent incisional hernia Colonic mass Constipation Fecal retention on CT scan Will order Dulcolax suppository now and continue home PO Stool softener this evening. Patient may need further bowel regimen postoperatively including possible enema. Obstipation Ventral incisional hernia Hernia Anemia Anxiety Mental retardation Ventral hernia with bowel obstruction Urinary frequency Urge incontinence of urine (Chronic) Seizure disorder Obesity (BMI 30.0-34.9) Mass of hepatic flexure of colon Foot callus Dermatitis, seborrheic [place] or callus Neal hemangioma Cardiomegaly Allergic rhinitis Acquired intellectual disability (Acute) Dysfunction of eustachian tube Shingles Conductive hearing loss in right ear Congestion of nasal sinus Mixed conductive and sensorineural hearing loss of left ear with restricted hearing of right ear Eczema Medical History History of fecal impaction History of intestinal obstruction Constipation GERD (gastroesophageal reflux disease) Seizure disorder Surgical History Surgical history unknown H/O myringotomy Family History Other Family history non-contributory No significant family history Denies family history of Malignant hyperthermia Ovarian cancer Prostate cancer Myocardial infarction Adverse anesthesia outcome Breast cancer Bleeding disorder Colorectal cancer Social History Smoking Status: Never smoker Second Hand Exposure: No; Do You Dip or Chew Tobacco: No; Hx Alcohol Use: No Hx Substance Use: No Preferred Language: Fijian Communication Ability: Impaired Communication Ability Comment: answers appropriatly just slow and limited at baseline; pt has autism Visual Impairment: No Limitations Hearing Ability: Hard of Hearing Meat Packer Required: No Beliefs That Will Affect Care: None marital status: Single Current Living Situation: Other Current Living Situation Comment: [facility] [employer] current occupational status: employed and unemployed current occupation: Works one day a week at [employer] Feels Safe at Home: Yes Childhood Exposure to Second-Hand Smoke: No Diet: other Diet Comment: 1800 calorie caffeine: No during the past year weight has: remained stable Dental Care, Regularly: Yes Physical Activity Frequency: Daily Seatbelt Use: always Sunscreen Use: Yes Assistive Devices: Glasses Review of Systems Review of Systems: See HPI above Physical Exam Physical Exam: General: no acute distress; grinder machine setter at bedside; non-toxic appearing; well- nourished; cooperative; SpO2 100% on RA HEENT: normocephalic, atraumatic; no scleral icterus; PERRLA; left lateral eye gaze palsy; vision and hearing intact; patient demonstrates ability to protrude and wiggle tongue bilaterally Neck: supple; no lymphadenopathy; trachea midline Skin: warm, dry without signs of tenting; no cyanosis; no rashes, bruising, lesions, or erythema noted CV: chest wall NTP; RRR; S1/S2 normal; no murmurs/rubs/gallops; pulses intact and symmetric at radial, DP, and PT Lungs: no acute respiratory distress; symmetrical chest wall expansion; clear breath sounds across all lung mcgee w/o adventitious sounds; no wheezing ABD: Soft, NTP; BS present; no rebound/guarding; no distention Extremities: Internal rotation of the upper extremities bilaterally MSK: no tics or fasciculations; no edema noted in the LEs b/l, nonerythematous Neuro: Vague historian; patient does know that his birthday is 1974; does not respond to most questioning, but does respond to some yes or no questions, and does respond to commands such as "wiggle your toes"; normal mood and affect; fluent speech; no slurred speech, facial droop, unilateral deficits appreciated; no focal deficits; unable to assess sensation Results & Data Results & Data Vital Signs (Past 12 Hours) Vital Signs Temp Pulse Resp BP Pulse Ox O2 Del Method 02/13/25 11:00 68 13 100 02/13/25 11:00 106/74 02/13/25 10:54 58 L 11 L 100 02/13/25 10:41 63 02/13/25 10:18 100 Room Air 02/13/25 09:07 36.4 C L 74 18 115/75 100 Room Air Laboratory Results Abnormal lab results 02/13/25 Range/Units 10:15 RBC 3.59 L (4.70-6.10) M/uL Hgb 11.4 L (14.0-18.0) g/dl Hct 35.3 L (42.0-52.0) % RDW Std Deviation 53.8 H (36.4-46.3) fL RDW Coeff of Millicent 15.1 H (11.5-14.5) % Plt Count 98 L (130-400) K/uL Chloride 110 H (98-107) mmol/L BUN/Creatinine Ratio 27.8 H (10-20) Glucose 124 H (70-99(Fasting)) mg/dl Globulin 2.1 L (2.5-4.0) gm/dl Diagnostic Findings Chest X-Ray 02/13/25 09:56 XR chest 1V portable CLINICAL HISTORY: fall while on treadmill COMPARISON STUDY: 01/23/2025 FINDINGS: There is stable moderate cardiomegaly without pulmonary vascular congestion. No effusion, consolidation, or pneumothorax. There is an interval fracture at the greater tuberosity of the left humeral head. IMPRESSION: 1. Fracture at the left humeral head. 2. No other acute findings seen in the chest. ACT 112: Negative or not required by law. Electronically signed by: Brian Jacobo M.D. 02/13/2025 10:[address] 02/13/25 09:56 CT head/brain wo con CLINICAL HISTORY: fall on treadmill. TECHNIQUE: Multiple axial CT images of the head were obtained without contrast. A dose lowering technique was utilized adhering to the principles of ALARA. CT DOSE: 2374.14 mGy.cm COMPARISON: 01/23/2025 FINDINGS: There is motion artifact. There are stable bilateral subdural CSF density collections measuring 11 mm maximal thickness on the coronal imaging. Stable minimal left to right midline shift. No acute intracranial hemorrhage seen. No hydrocephalus. Stable mucosal thickening at the right maxillary sinus. No skull fracture. IMPRESSION: 1. No acute findings. 2. 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 ACT 112: Negative or not required by law. The above report was generated using voice recognition software. It may contain grammatical, syntax or spelling errors. Electronically signed by: Brian Jacobo M.D. 02/13/2025 10:58 AM ECG Additional Comments: ECG revealed Code Status & VTE Plan Code Status Full code (confirmed with both patient, patient's grinder machine setter at bedside, and patient's mother over the phone) VTE Prophylaxis Plan VTE Prophylaxis will be ordered: Yes PG Care Time/CCT Total # of Minutes Spent Total Time Spent with Patient: Total time spent is greater than 50% in coordination of care (as documented) at patient's floor/unit and/or counseling patient: Coding [place] [address] INT INP/OBS CARE MIN Patient Type Established History Comprehensive Exam Comprehensive Medical Decision Making High Complexity Diagnoses Fall W19.XXXA Seizure disorder G40.909 Left humeral fracture S42.302A Syncope R55 Acquired intellectual disability F79
[2025-02-13 12:09] LABS: Appearance Urine Clear (Clear); Bilirubin Urine Negative (Negative); Blood Urine Negative (Negative); Color Urine Dark Yellow; Glucose Urine UA Negative (Negative); Ketones Urine Negative (Negative); Leukocyte Esterase Urine Negative (Negative); Nitrite Urine Negative (Negative); Protein Urine Negative (Negative); Specific Gravity Urine 1.018 (1.000-1.030); Urobilinogen Urine Negative (Negative); pH Urine 6.5 (4.5-7.5)
--- NOTE | 2025-02-13 12:37 | XRay Report ---
XR shoulder LT min 2V routine CLINICAL HISTORY: Fall, L humeral head fx on cxr COMPARISON: None FINDINGS: There is an acute minimally displaced fracture at the greater tuberosity of the proximal h umerus. No other fracture or dislocation seen. IMPRESSION: Acute fracture proximal humerus. ACT 112: Negative or not required by law. Electronically signed by: Brian Jacobo M.D. 02/13/2025 12:36 PM
--- OUTSIDE RECORDS SUMMARY | 2025-02-13 12:49 | External Medical Summary | Summary of Care ---
Author Name Unknown Organization [facility] Address [address] [place] [address] Phone [phone] Care Team Providers Care Solids Control Technician Name Role Phone Scooter Henriquez PA-C Primary Care Pr ovider Reason for Referral * Precert (Within 10 days (routine)) - Authorized Specialty Diagnoses / Procedures Referred By Contac t Referred To Contact Radiology Diagnoses Hygroma Procedures CT HEAD/BRAIN WO CONTRAST Maurice Magana PA-C [address] [place] [address] Phone: tel: fax: Referral ID Status Reason Start Date Expiration Date V isits Requested Visits Authorized [id number] Authorized 03/16/2025 [id number] Encounter Details Date Type Department Care Team (Late st Contact Info) Description 01/31/2025 9:30 AM EDT [facility] [address] [place] [address] Maurice Magana PA-C [address] [place] [address] Hygroma* Allergies Active Allergy Reactions Criticality Noted Date Comments Pseudoephedrine 12/16/2023 Not to take with phenobarbital documented as of this encounter (statuses as of 01/31/2025) Medications Docusate Sodium 100 MG Oral Capsule (Colace) Take 1 Capsule by mouth in the morning and 1 Capsule before bedtime. Active Famotidine 40 MG Oral Tablet (Pepcid) Take 1 Tablet by mouth in the morning. 06/04/20 Active Levocetirizine Dihydrochloride 5 MG Oral Tablet Take 1 Tablet by mouth every evening. Active linaCLOtide 72 MCG Oral Capsule (Linzess) Take 1 Capsule by mouth in the morning. 09/03/20 Active PHENobarbital 60 MG Oral Tablet Take 2 Tablets by mouth at bedtime. 05/12/20 Active Polyethylene Glycol 3350 17 GM/SCOOP Oral Powder (MiraLax) Take 17 g by mouth daily as needed for Constipation. Mix in 8 oz of liquid Active Magnesium Citrate 1.745 GM/30ML Oral Solution Take 150 mL by mouth as needed for Constipation. Follow with 8 oz of water Active Ear Wax Removal Drops 6.5 % Otic Solution (Carbamide Peroxide) Instill 5-10 Drops into both ears every Wednesday. Active AY-Nrutlpnziq-Tbkim cobalamin 2.5-25-2 MG Oral Tablet Take 1 Tablet by mouth in the morning. 12/07/19 Active Fluticasone Propionate 50 MCG/ACT Nasal Suspension (Flonase) Administer 2 Sprays into each nostril in the morning. Active Sodium Fluoride 5000 PPM 1.1 % Dental Paste Use pea sized amount twice daily with normal toothpaste twice daily 03/15/20 Active Acetic Acid 2 % Otic Solution Instill 5 Drops into both ears in the morning and 5 Drops before bedtime. Active Ammonium Lactate 12 % External Cream (Lac-Hydrin) Apply topically to callus area on hands and feet twice daily Active Loperamide HCl 2 MG Oral Capsule (Imodium) Take 1 Capsule by mouth 4 times a day as needed for Diarrhea. Active Bismuth Subsalicylate 525 MG/30ML Oral Suspension Take 60 mL by mouth every hour as needed for Diarrhea, Nausea or Indigestion. Active documented as of this encounter (statuses as of 01/31/2025) Active Problems Problem Noted Date Diagnosed Date Hygroma 01/23/2025 Small bowel obstruction 06/28/2024 Ventral hernia 05/30/2024 documented as of this encounter (statuses as of 01/31/2025) Social History Tobacco Use Types Packs/Day Years Used Date Smoking Tobacco: Never Passive Smoke Exposure: Never Smokeless Tobacco: Never Alcohol Use Standard Drinks/Week Comments Never 0 (1 standard drink = 0.6 oz pur e alcohol) Sex and Gender Information Value Date Recorded Sex Assigned at Not on file Legal Sex Male 5:08 AM EST Gender Identity Not on file Sexual Orientation Not on file documented as of this encounter Functional Status * Are you deaf or do you have serious difficulty hearing? Answer Date of Assessment Author No 05/30/2024 4:49 PM EDT Everett Pickard RN * Are you blind or do you have serious difficulty seeing, even when wearing glasses? Answer Date of Assessment Author No 05/30/2024 4:49 PM EDT Everett Pickard RN * Do you have serious difficulty walking or climbing stairs? (5 years old or older) Answer Date of Assessment Author No 05/30/2024 4:49 PM EDT Everett Pickard RN * Do you have difficulty dressing or bathing? (5 years old or older) Answer Date of Assessment Author No 05/30/2024 4:49 PM EDT Everett Pickard RN * Because of a physical, mental, or emotional condition, do you have difficulty doing errands alone such as visiting a doctor’s office or shopping? (15 years old or older) Answer Date of Assessment Author Yes 05/30/2024 4:49 PM EDT Everett Pickard RN documented as of this encounter Mental Status * Because of a physical, mental, or emotional condition, do you have serious difficulty concentrating, remembering, or making decisions? (5 years old or older) Answer Entry Date Author No 05/30/2024 4:49 PM EDT Everett Pickard RN documented in this encounter Progress Notes * Maurice Magana PA-C - 01/31/2025 9:45 AM EDT Patient location: HOME. I was in a hospital or clinic location. After connecting through televideo,patient was verified with two unique identifiers. Patient (or authorized legal airline security representative) was then informed that this was a Telemedicine visit and being conducted confidentially over secure lines. Methods to assure confidentiality were taken. Patient acknowledged consent and understanding of pr ivacy and security of the Telemedicine visit. The patient agreed to participate. 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 History of Present Illness Adan Myrick is a 49 year old male who presents with chronic fluid collections on the brain. He is accompanied by Godwin, whose is his caregiver. He was referred for evaluation of chronic fluid collections on the brain. Chronic fluid collections on the brain were incidentally discovered during a hospital stay for pneumonia and influenza. During that time, he experienced fever and an inability to walk, which were attributed to the pneumonia and influenza. Since then, he has returned to his baseline with no new symptoms or complaints. No stroke-like symptoms, headaches, vision changes, or hearing changes. No unilateral weakness or excessive lethargy beyond his normal cognitive behavior. He has not experienced any recent falls or head injuries that could have contributed to the fluid collections. There is no current medication use reported in relation to the fluid collections. Past Medical History: No past medical history on file. Past Surgical History: Past Surgical History: Procedure Laterality Date INFORMATION 08/03/2018 08/03/2018 open repair of ventral hernia with mesh [facility] Dr. Dilia Manuel RPR AA HERNIA 1ST < 3 CM REDUCIBLE N/A 05/30/2024 INCISIONAL/VENTRAL/SPIGELIAN HERNIA REPAIR INITIAL < 3 CM REDUCIBLE performed by Atif Sidhu MD at [place] [facility] Social History: Social History Socioeconomic History Marital status: Single Spouse name: Not on file Number of children: Not on file Years of education: Not on file Highest education level: Not on file Occupational History Not on file Tobacco Use Smoking status: Never Passive exposure: Never Smokeless tobacco: Never Vaping Use Vaping status: Never Used Substance and Sexual Activity Alcohol use: Never Drug use: Never Sexual activity: Not on file Other Topics Concern Not on file Social History Narrative Not on file Social Needs Financial Resource Strain: Not on file Food Insecurity: Not on file Transportation Needs: Not on file Social Connections: Not on file Housing Stability: Not on file Family History: No family history on file. Current Medications: Current Outpatient Medications Medication Sig Dispense Refill Docusate Sodium 100 MG Oral Capsule (Colace) Take 1 Capsule by mouth in the morning and 1 Capsule before bedtime. Famotidine 40 MG Oral Tablet (Pepcid) Take 1 Tablet by mouth in the morning. Levocetirizine Dihydrochloride 5 MG Oral Tablet Take 1 Tablet by mouth every evening. linaCLOtide 72 MCG Oral Capsule (Linzess) Take 1 Capsule by mouth in the morning. PHENobarbital 60 MG Oral Tablet Take 2 Tablets by mouth at bedtime. Polyethylene Glycol 3350 17 GM/SCOOP Oral Powder (MiraLax) Take 17 g by mouth daily as needed for Constipation. Mix in 8 oz of liquid Magnesium Citrate 1.745 GM/30ML Oral Solution Take 150 mL by mouth as needed for Constipation. Follow with 8 oz of water Ear Wax Removal Drops 6.5 % Otic Solution (Carbamide Peroxide) Instill 5-10 Drops into both ears every Wednesday. VT-Egcorlkeex-Lftpjknmthrklg 2.5-25-2 MG Oral Tablet Take 1 Tablet by mouth in the morning. Fluticasone Propionate 50 MCG/ACT Nasal Suspension (Flonase) Administer 2 Sprays into each nostril in the morning. Sodium Fluoride 5000 PPM 1.1 % Dental Paste Use pea sized amount twice daily with normal toothpastetwice daily Acetic Acid 2 % Otic Solution Instill 5 Drops into both ears in the morning and 5 Drops before bedtime. Ammonium Lactate 12 % External Cream (Lac-Hydrin) Apply topically to callus area on hands and feet twice daily Loperamide HCl 2 MG Oral Capsule (Imodium) Take 1 Capsule by mouth 4 times a day as needed for Diarrhea. Bismuth Subsalicylate 525 MG/30ML Oral Suspension Take 60 mL by mouth every hour as needed for Diarrhea, Nausea or Indigestion. No current facility-administered medications for this visit. Allergies: Review of patient's allergies indicates: Allergen Reactions Decongestant [Pseudoephedrine] Not to take with phenobarbital ROS: As per HPI, all other negative There were no vitals taken for this visit. PHYSICAL EXAMINATION: Physical Exam Neurologically stable AA&O No acute distress Pleasant and cooperative IMAGING/STUDIES: Results RADIOLOGY Head CT: Chronic subdural fluid collections, likely longstanding, not acute. Patient Active Problem List Diagnosis Ventral hernia Small bowel obstruction (HCC) Hygroma A total of 43 minutes were spent in direct provider to patient communication, along with counselingand coordinating care on 01/31/2025 related to this encounter and patient evaluation. This includes (on the same date of encounter) imaging review, chart review (to include prior related documentation), medication review, risk factors related to co-morbidities, education/discussion related to diagnosis/disease process (to include the natural disease progress or progression of traumatic injury), treatment options including conservative management (meds, physical therapy, interventional pain management, rehabilitation medicine), surgical options, and timing related to potential improvement in symptoms. ASSESSMENT/PLAN: Assessment & Plan Chronic subdural fluid collections Chronic subdural fluid collections on CT, likely longstanding. Low risk of complications unless expansion occurs. Age-related brain shrinkage may reduce risk of brain shift. - Order repeat CT scan of the head in six weeks to monitor fluid collections. - Contact Godwin with results of the CT scan. - Advise to report new neurological symptoms such as unilateral weakness, excessive lethargy, or cognitive decline. Hygroma (Primary) - CT HEAD/BRAIN WO CONTRAST; Future; Expected date: 03/16/2025 Check-out note: Will need follow up phone call after CT head is completed -Call [facility] clinic for questions or concerns Maurice Magana PA-C Department of Neurosurgery Consent was not obtained to use ambient documentation during this encounter. I used the tool outside of the encounter to assist with generating the note. Parts of this note may have been dictated using the [address] direct dictation system. There may be spelling errors, changes in the words dictated and words inserted into the note which may have been misinterpreted by the dictation system. These errors should not be used to change the meaning of the intended dictation. documented in this encounter Plan of Treatment Upcoming Encounters Date Type Department Care Team (Late st Contact Info) Description 06/21/2025 12:45 PM EDT [facility] [address] [place] [address] Atif Sidhu MD [address] [place] [address] Scheduled Orders Name Type Priority Associated Diagnoses Orde r Schedule CT HEAD/BRAIN WO CONTRAST Medical Imaging Routine Hygroma Expected: 03/16/2025, Expires: 03/03/2026 Health Maintenance Due Date Last Done Comments Lipid Panel 1974 Depression Screening 1986 HIV Screening 1989 Hepatitis C Screening 1992 DTap/Tdap Vaccines (1 - Tdap) 1993 Hepatitis B Vaccine (1 of 3 - 19+ 3-dose series) 1993 Cologuard 2019 Colonoscopy 2019 Colorectal Cancer Screening 2019 Fecal Occult Blood Test 2019 Sigmoidoscopy 2019 Pneumococcal Vaccine: 50+ Years (1 of 1 - PCV) 2024 Zoster Vaccines (1 of 2) 2024 COVID-19 Vaccine (1 - 2023- season) 2024 Influenza Vaccine (FLU shot) (#1) 2024 Diabetes Screening 01/24/2028 01/23/2025, 0 07/03/2024, 07/02/2024, Additional history exists HPV (Gardasil) Vaccine Aged Out No lo nger eligible based on patient's age to complete this topic MENINGOCOCCAL (MENACTRA/MENVEO) Aged Out No longer eligible based on patient's age to complete this topic Meningitis B Vaccine (Bexsero/Trumemba) Aged Out No longer eligible based on patient's age to complete this topic documented as of this encounter Medical Devices Implanted Type Area Tap And Die Maker Technician Device Identifier Shelf Expiration Date Model / Serial / Lot Mesh Macroporous 30cm X 30cm - [id number] Implanted:Qty: 1 on 05/30/2024 by Atif Sidhu MD at [facility] N/A: Abdomen COVIDIEN : [employer] [id number] 07/08/2028 [id number] / / [id number] documented as of this encounter Visit Diagnoses Diagnosis Hygroma- Primary Lymphangioma, any site documented in this encounter Advance Directives * Full Code (Latest Code Status on File) Date Activated Date Inactivated Comments 06/27/2024 2:25 AM 07/03/2024 4:04 PM This order r eflects the patients wishes and were consensually agreed upon. Question Answer Comments Discussion of Advance Direct maura occurred with: Not Discussed due to patient's condition * Full Code Date Activated Date Inactivated Comments 05/30/2024 2:52 PM 06/01/2024 4:08 PM This order r eflects the patients wishes and were consensually agreed upon. Question Answer Comments Discussion of Advance Directives occurred with: Patient * Full Code Date Activated Date Inactivated Comments 05/30/2024 9:19 AM 05/30/2024 2:52 PM This order r eflects the patients wishes and were consensually agreed upon. Question Answer Comments Discussion of Advance Directives occurred with: Patient Care Teams Solids Control Technician Relationship Specialty Start Date End Date Scooter Henriquez PA-C [address] [place] [address] PCP - General Physician Hammer Shop Supervisor 04/19/24 documented as of this encounter
--- OUTSIDE RECORDS SUMMARY | 2025-02-13 12:49 | External Medical Summary | Summary of Care ---
Author Name Unknown Organization [facility] Address [address] [place] [address] Phone [phone] Care Team Providers Care Filtration Plant Operator Name Role Phone Scooter Henriquez PA-C Primary Care Pr ovider Reason for Visit * Reason Onset Date Comments Other 01/24/2025 [facility] would like to know if appointment can be completed video to home due to lengthy transport time Encounter Details Date Type Department Care Team (Late Contact Info) Description 01/24/2025 New Patient Triage (WASTE PICKER USE ONLY) Neurosurgery, [facility] [address] [place] [address] Criss Magana RN Other ([facility] would like to know if ap... Allergies Active Allergy Reactions Criticality Noted Date Comments Pseudoephedrine 12/16/2023 Not to take with phenobarbital documented as of this encounter (statuses as of 01/26/2025) Medications Docusate Sodium 100 MG Oral Capsule (Colace) Take 1 Capsule by mouth in the morning and 1 Capsule before bedtime. Active Famotidine 40 MG Oral Tablet (Pepcid) Take 1 Tablet by mouth in the morning. 06/04/20 23 Active Levocetirizine Dihydrochloride 5 MG Oral Tablet Take 1 Tablet by mouth every evening. Active linaCLOtide 72 MCG Oral Capsule (Linzess) Take 1 Capsule by mouth in the morning. 09/03/20 23 Active PHENobarbital 60 MG Oral Tablet Take 2 Tablets by mouth at bedtime. 05/12/20 23 Active Polyethylene Glycol 3350 17 GM/SCOOP Oral [...] Drops into both ears every Wednesday. Active QT-Dgxjtyxmwp-Mtvly cobalamin 2.5-25-2 MG Oral Tablet Take 1 Tablet by mouth in the morning. 12/07/19 24 Active Fluticasone Propionate 50 MCG/ACT Nasal Suspension (Flonase) Administer 2 Sprays into each nostril in the morning. Active Sodium Fluoride 5000 PPM 1.1 % Dental Paste Use pea sized amount twice daily with normal toothpaste twice daily 03/15/20 24 Active Acetic Acid 2 % Otic Solution [...] needed for Diarrhea, Nausea or Indigestion. Active Amoxicillin-Pot Clavulanate 875-125 MG Oral Tablet (Augmentin) Take 1 Tablet by mouth in the morning and 1 Tablet before bedtime. Do all this for 4 days. 8 Tablet 01/24/20 25 025 Active Azithromycin 250 MG Oral Tablet (Zithromax) Take 1 Tablet by mouth in the morning for 4 days. Take 2 tabs by mouth on the first day, then take 1 tab on daily on days two through five.. 4 Tablet 01/24/20 25 025 Active Oseltamivir Phosphate 75 MG Oral Capsule (Tamiflu) Take 1 Capsule by mouth in the morning and 1 Capsule before bedtime. Do all this for 5 days. 10 Capsule 01/24/20 25 025 Active documented as of this encounter (statuses as of 01/26/2025) Active Problems Problem Noted Date Diagnosed Date Hygroma 01/23/2025 Small bowel obstruction 06/28/2024 Ventral hernia 05/30/2024 documented as of this encounter (statuses as of 01/26/2025) Social History Tobacco Use Types Packs/Day Years [...] Progress Notes * Maurice Magana PA-C - 01/26/2025 8:52 AM EDT Agree with new patient triage note, will be seen as scheduled. * Agnes Banks OSA - 01/25/2025 1:47 PM EDT Outgoing call to all numbers in chart, no answer at any of them, left message on voicemail at [phone], and asked home day care provider Milton to call the clinic back. When he calls back please relay to shelter that the appointment on 01/31/25 has been changed to avideo and you will need to confirm email address on file. * Alejandra Silva OSA - 01/24/2025 10:43 AM EDT [facility] would like to know if appointment can be completed video to home due to lengthy transport time Plz contact at number in chart to advise Thank you * Criss Magana RN - 01/24/2025 10:27 AM EDT New Patient Triage What is the diagnosis/reason for referral?: subdural hygroma Enter order ID here: [id number] Specialty specific documentation: Neuroscience: Neurosurgery Does patient need to be seen?: Yes Modality: Office visit Urgency: Within 3 days (urgent) Discussed care plan with patient or proxy?: Yes via telephone Communicated with patient on Date (mm/dd/yyyy): 01/24/2025 at Time ([facility]): 1018 Received new patient referral (3 day urgent) for subdural hygroma recently seen in ED. Was diagosedwith FLU A at that time, unable to come within 3 days. Scheduled first available, 01/31 that shelter is able to bring him. Recent CT in chart: IMPRESSION 1. No convincing evidence of acute traumatic injury or other acute abnormality in the head and cervical spine. 2. Subdural hygromas of undetermined age, more likely chronic, along the left frontoparietal cerebral convexity, along the right side of the falx, and below the left tentorial leaflet. The largest subdural hygroma along the left cerebral convexity measures up to 10 mm in thickness and is causing mild mass effect on the left cerebral hemisphere with 5 mm left to right midline shift. documented in this encounter Plan of Treatment Upcoming Encounters Date Type Department Care Team (Late st Contact Info) Description 01/31/2025 9:30 AM EDT Telemedicine Neurosurgery, [facility] [address] [phone] Maurice Magana PA-C [address] [place], [place] [phone] 06/21/2025 12:45 PM EDT Office Visit General Surgery, [facility] [address] [phone] Atif Sidhu MD [address] [place] [address] Health Maintenance Due Date Last Done Comments [...] this encounter Medical Devices Implanted Type Area Gas Golf Cart Repairer Device Identifier Shelf Expiration Date Model / Serial / Lot Mesh Macroporous 30cm X 30cm - [id number] Implanted:Qty: 1 on 05/30/2024 by Atif Sidhu [place] [facility] [place]A: Abdomen COVIDIEN : [employer] [id number] 07/08/2028 [id number] / / [id number] documented as of this encounter Advance Directives * Full Code [...] 9:19 AM 05/30/2024 2:52 PM This order reflects the patients wishes and were consensually agreed upon. Question Answer Comments Discussion of Advance Directives occurred with: Patient Care Teams Filtration Plant Operator Relationship Specialty Start Date End Date Scooter Henriquez PA-C [address] [place] [address] PCP - General Physician Inside Sales Advertising Executive 04/19/24 documented as of this encounter
--- OUTSIDE RECORDS SUMMARY | 2025-02-13 12:49 | External Medical Summary | Summary of Care ---
Author Name Unknown Organization [facility] Address [address] [place] [address] Phone [phone] Care Team Providers Care Crop Consultant Name Role Phone Scooter Henriquez PA-C Primary Care Pr ovider Reason for Visit * Reason Onset Date Comments Other 01/24/2025 [facility] would like to know if appointment can be completed video to home due to lengthy transport time Encounter Details Date Type Department Care Team (Late Contact Info) Description 01/24/2025 New Patient Triage (TYPESETTER PERFORATOR OPERATOR USE ONLY) Neurosurgery, [place] [address] [place] [address] Criss Magana RN Other ([facility] would like to know if [...] Drops into both ears every Wednesday. Active HH-Jkfpqiwfyl-Xlhcp cobalamin 2.5-25-2 MG Oral Tablet Take 1 [...] of them, left message on voicemail at [phone], and asked childcare provider Milton to call the clinic back. When he calls back please relay to intermediate that the appointment on 01/31/25 has been changed to avideo and you will need to confirm email address on file. * Alejandra Silva OSA - 01/24/2025 10:43 AM EDT [facility] would like to know if appointment can be completed video to home due to lengthy transport time Plz contact at number in chart to advise Thank you * Criss Magana RN - 01/24/2025 10:27 AM EDT New Patient Triage What is the diagnosis/reason for referral?: subdural hygroma Enter order ID here: [id number] Specialty specific documentation: Neuroscience: Neurosurgery Does patient need to be seen?: Yes Modality: Office visit Urgency: Within 3 days (urgent) Discussed care plan with patient or proxy?: Yes via telephone Communicated with patient on Date (mm/dd/yyyy): 01/24/2025 at Time ([facility]): 1018 Received new patient referral (3 day urgent) for subdural hygroma recently seen in ED. Was diagosedwith FLU A at that time, unable to come within 3 days. Scheduled first available, 01/31 that intermediate is able to bring him. Recent CT [...] Description 01/31/2025 9:30 AM EDT Telemedicine Neurosurgery, [place] [address] [phone] Maurice Magana PA-C [address] [place], [place] [phone] 06/21/2025 12:45 PM EDT Office Visit General Surgery, [place] [address] [phone] Atif Sidhu MD [address] [place] [address] Health Maintenance Due Date Last [...] this encounter Medical Devices Implanted Type Area Licensed Mental Health Counselor Device Identifier Shelf Expiration Date Model / Serial / Lot Mesh Macroporous 30cm X 30cm - [id number] Implanted:Qty: 1 on 05/30/2024 by Atif Sidhu MD at [place] [facility] [place] N/A: Abdomen COVIDIEN : [employer] [id number] 07/08/2028 [id number] / / [id number] documented as of this encounter Advance Directives [...] Advance Directives occurred with: Patient Care Teams Crop Consultant Relationship Specialty Start Date End Date Scooter Henriquez PA-C [address] [place] [address] PCP - General Physician Credit Administration Manager 04/19/24 documented as of this encounter
[2025-02-13] MEDS: MAGNESIUM SULFATE / D5W 1 GM/100 ML BAG IV ONE (13:39)
--- NOTE | 2025-02-13 14:01 | XRay Report ---
XR shoulder LT 1V CLINICAL HISTORY: injury, transcapular lateral view requested COMPARISON: 02/13/2025 FINDINGS: There is mild anterior subluxation at the glenohumeral joint on the lateral views. Minimal ly displaced fracture at the greater tuberosity is redemonstrated. IMPRESSION: 1. Stable greater tuberosity fracture. 2. Mild anterior subluxation. ACT 112: Negative or not required by law. Electronically signed by: Brian Jacobo M.D. 02/13/2025 1:59 PM
[2025-02-13] MEDS: POTASSIUM CHLORIDE 10 MEQ TABCR PO STA (14:14)
[2025-02-13] MEDS ORDERED: POLYETHYLENE (MIRALAX) 17 GM PACK PO PRN (16:19)
--- NOTE | 2025-02-13 16:29 | Orthopedic Consultation ---
Date of Consultation February 13, 2025 Assessment & Plan (1) Left humeral fracture: X-rays reviewed by myself as well as Dr. Valdes. His fracture is minimally displaced and in acceptable alignment. Will plan to treat with a sling and swath. The sling is in place today. His identification his identification bracelet is on his left wrist. Asked nursing to move this to the right wrist. He also has a left antecubital fossa IV site. Advised to remove this and was transitioned to the right upper extremity. Explained to his mom as well as his sports marketer that the speak over the next few days this could become more swollen and ecchymotic. Encouraged finger wrist and elbow range of motion while in the sling asked tolerated. No use of left arm otherwise. Needs to keep the sling on at all times. His nurse will apply the belly band when he gets up next to goes to the restroom. From an orthopedic standpoint no surgical intervention is indicated. He may have a regular diet if okay with primary service. He may be comfortable with the head of his bed elevated. Ice to the left shoulder as nee ded for pain or swelling. Recommend Tylenol as needed for pain. Will continue to follow while inpatient. Will need close follow-up with repeat x-rays in the next 7 to 10 days as an outpatient. Family understands and agrees with the plan. All questions were answered. Spent approximately 30 minutes Reviewing the patient's chart, reviewing x-rays performing a history and physical exam and discussing treatment options and plan with the family and the patient. History of Present Illness Reason for Consultation: left proximal humerus fracture Attending Physician: Lynnette Hardin MD History of Present Illness Patient is a pleasant 49-year-old male brought to the emergency room today with complaints of left shoulder pain. He was walking on the treadmill which she does daily for exercise. He has a sports marketer with him throughout the day. She is present with him today in the emergency room. She states that he was walking on the treadmill and he had his back to her. She noted him suddenly dropped to the floor and was pushed by the treadmill into the stairs. She does not recall him passing out or fainting. She states that after the fall he did have some confusion and was "dazed". Called the ambulance and he was brought to the hospital for evaluation. While in the emergency room he had x-rays of his shoulder due to pain. He was found to have a left proximal humerus fracture. Orthopedic consultation was obtained. He is being admitted by the hospitalist service for observation due to possible syncopal episode. Patient has autism and does communicate and answers questions appropriately although slowly. His mom is also present in the room today. They deny any previous injuries to the left shoulder. He tells me that he hurt his knee. His sports marketer says that he has an abrasion on the left knee. Normally he ambulates without any assistive device. Allergies Allergy/AdvReac Type Severity Reaction Status Date / Time brompheniramine AdvReac Unknown interferes Verified 02/13/25 11:44 with phenobarbitol phenylpropanolamine AdvReac Unknown interferes Verified 02/13/25 11:44 with phenobarbitol Home Medications Medication Instructions Recorded Confirmed Type ammonium lactate 12 % topical cream 1 appln topical BID 05/29/20 02/13/25 Histor y fluoride (sodium) 1.1 % dental 1 applic dental BID 01/26/24 02/13/25 History paste levocetirizine 5 mg tablet 5 mg PO HS #90 tabs 04/14/24 02/13/25 Rx vitamin B complex-folic acid 0.4 1 tab PO DAILY #30 tabs 08/02/24 02/13/25 Rx mg tablet (B Complex 1 (with folic acid)) acetic acid 2 % ear solution 5 drp otic (ear) QAM #15 mL 08/31/24 02/13/25 Rx phenobarbital 60 mg tablet 120 mg (2 x 60 mg) PO QPM #60 tabs 10/17/24 02/13/25 Rx docusate sodium 100 mg capsule 100 mg PO BID 10/20/24 02/13/25 History (Dulcolax Stool Softener (docusate)) famotidine 40 mg tablet 40 mg PO QAM 10/20/24 02/13/25 History linaclotide 72 mcg capsule 72 mcg PO QAM 01/23/25 02/13/25 History (Linzess) acetaminophen 500 mg tablet 500 mg PO Q6H PRN Pain/Fever 02/13/25 02/13/25 History carbamide peroxide 6.5 % ear drops 5 drp otic (ear) WK 02/13/25 02/13/25 History (Clinere Ear Wax Removal) fluticasone propionate 50 2 spray intranasal QAM 02/13/25 02/13/25 History mcg/actuation nasal spray,suspension (Flonase Allergy Relief) polyethylene glycol 3350 17 17 g PO BID PRN Constipation 02/13/25 02/13/25 History gram/dose oral powder Patient History Medical History History of fecal impaction History of intestinal obstruction Constipation GERD (gastroesophageal reflux disease) Seizure disorder Surgical History Surgical history unknown H/O myringotomy Family History Other Family history non-contributory No significant family history Denies family history of Malignant hyperthermia Ovarian cancer Prostate cancer Myocardial infarction Adverse anesthesia outcome Breast cancer Bleeding disorder Colorectal cancer Social History Smoking Status: Never smoker Second Hand Exposure: No; Do You Dip or Chew Tobacco: No; Hx Alcohol Use: No Hx Substance Use: No Preferred Language: [place] Communication Ability: Impaired Communication Ability Comment: answers appropriatly just slow and limited at baseline; pt has autism Visual Impairment: No Limitations Hearing Ability: Hard of Hearing Miller Head Assistant Wet Process Required: No Beliefs That Will Affect Care: None marital status: Single Current Living Situation: Other Current Living Situation Comment: [facility] current occupational status: employed and unemployed current occupation: Works one day a week at [employer] Feels Safe at Home: Yes Childhood Exposure to Second-Hand Smoke: No Diet: other Diet Comment: 1800 calorie caffeine: No during the past year weight has: remained stable Dental Care, Regularly: Yes Physical Activity Frequency: Daily Seatbelt Use: always Sunscreen Use: Yes Assistive Devices: Glasses Review of Systems Review of Systems: Other (limited due to cognitive status) Physical Exam Musculoskeletal: Exam of his left upper extremity: Skin is intact of the left upper extremity. No visible ecchymosis or erythema. Sling is on his left arm. He holds his left hand in a fist but is able to actively open his fingers and hold against resistance. He is nontender with palpation of the wrist or forearm. He notes discomfort with movement of the elbow with flexion and extension. He also winces with gentle internal/external rotation of the left shoulder. He is nontender with palpation of the clavicle or scapula or the cervical spine. He has full active range of motion of the cervical spine today. Distal pulses are 2+. Capillary refill is brisk. Fingers are warm. He is unable to do a full neuro exam due to cognitive status. Exam of Bilateral lower extremities: He is able to actively lift both of his legs, bend knees and ankles. Dorsalis pedis pulses are 2+. He has a very superficial abrasion on the left knee over the patella. No knee effusion noted. Tolerates logrolling of bilateral hips. Exam of his right upper extremity: Full range of motion of the right shoulder elbow wrist and fingers. Nontender to palpation. Actively able to straighten his arm and lift overhead. Results & Data Vital Signs (Past 12 Hours) Vital Signs Temp Pulse Resp BP Pulse Ox O2 Del Method 02/13/25 14:49 61 02/13/25 13:03 65 16 99 02/13/25 13:00 117/74 02/13/25 12:30 69 15 100 02/13/25 12:06 88 15 02/13/25 12:00 117/68 02/13/25 11:57 62 14 100 02/13/25 11:00 68 13 100 02/13/25 11:00 106/74 02/13/25 10:54 58 L 11 L 100 02/13/25 10:41 63 02/13/25 10:18 100 Room Air 02/13/25 09:07 36.4 C L 74 18 115/75 100 Room Air Laboratory Results 02/13/25 02/13/25 02/13/25 Range/Units 12:56 11:45 11:40 WBC (4.8-10.8) K/ul RBC (4.70-6.10) M/uL Hgb (14.0-18.0) g/dl Hct (42.0-52.0) % MCV (80.0-100.0) fL MCH (25.0-34.0) pg MCHC (32.0-36.0) g/dL RDW Std Deviation (36.4-46.3) fL RDW Coeff of Millicent (11.5-14.5) % Plt Count (130-400) K/uL MPV (9.4-12.4) fL Immature Gran % (Auto) % Neut % (Auto) % Lymph % (Auto) % [place] % (Auto) % Eos % (Auto) % Baso % (Auto) % Neut # (Auto) (1.40-6.50) K/uL Lymph # (Auto) (1.20-3.40) K/uL [place] # (Auto) (0.11-0.59) K/uL Eos # (Auto) (0.00-0.50) K/uL Baso # (Auto) (0.00-0.20) K/uL Immature Gran # (Auto) (0.01-0.20) K/uL PT (9.0-12.0) Seconds INR (0.9-1.1) APTT (21-31) Seconds PTT Ratio Sodium (136-145) mmol/L Potassium (3.5-5.1) mmol/L Chloride (98-107) mmol/L Carbon Dioxide (21-32) mmol/L Anion Gap (3-11) BUN (6-23) mg/dl Creatinine (0.6-1.4) mg/dl Est Cr Clr Drug Dosing ml/min eGFR BUN/Creatinine Ratio (10-20) Glucose (70-99(Fasting)) mg/dl Calcium (8.6-10.3) mg/dl Magnesium (1.7-2.4) mg/dl Total Bilirubin (0.2-1.0) mg/dl AST (13-39) U/L ALT (7-52) U/L Alkaline Phosphatase (34-104) U/L Troponin I High Sens < 2.3 (0-20) pg/ml Total Protein (6.0-8.3) gm/dl Albumin (3.4-5.0) gm/dl Globulin (2.5-4.0) gm/dl Albumin/Globulin Ratio (0.9-2) Lipase (11-82) U/L TSH (0.300-4.500) uIu/ml Urine Color Dark Yellow Urine Appearance Clear (Clear) Urine pH 6.5 (4.5-7.5) Ur Specific [place] 1.018 (1.000-1.030) Urine Protein Negative (Negative) Urine Glucose (UA) Negative (Negative) Urine Ketones Negative (Negative) Urine Blood Negative (Negative) Urine Nitrite Negative (Negative) Urine Bilirubin Negative (Negative) Urine Urobilinogen Negative (Negative) Ur Leukocyte Esterase Negative (Negative) SARS-CoV-2 (PCR) NEGATIVE (Negative) 02/13/25 Range/Units 10:15 WBC 5.99 (4.8-10.8) K/ul RBC 3.59 L (4.70-6.10) M/uL Hgb 11.4 L (14.0-18.0) g/dl Hct 35.3 L (42.0-52.0) % MCV 98.3 (80.0-100.0) fL MCH 31.8 (25.0-34.0) pg MCHC 32.3 (32.0-36.0) g/dL RDW Std Deviation 53.8 H (36.4-46.3) fL RDW Coeff of Millicent 15.1 H (11.5-14.5) % Plt Count 98 L (130-400) K/uL MPV 11.6 (9.4-12.4) fL Immature Gran % (Auto) 0.3 % Neut % (Auto) 66.2 % Lymph % (Auto) 29.5 % [place] % (Auto) 3.3 % Eos % (Auto) 0.5 % Baso % (Auto) 0.2 % Neut # (Auto) 3.96 (1.40-6.50) K/uL Lymph # (Auto) 1.77 (1.20-3.40) K/uL [place] # (Auto) 0.20 (0.11-0.59) K/uL Eos # (Auto) 0.03 (0.00-0.50) K/uL Baso # (Auto) 0.01 (0.00-0.20) K/uL Immature Gran # (Auto) 0.02 (0.01-0.20) K/uL PT 11.2 (9.0-12.0) Seconds INR 1.0 (0.9-1.1) APTT 27 (21-31) Seconds PTT Ratio 1.0 Sodium 144 (136-145) mmol/L Potassium 3.9 (3.5-5.1) mmol/L Chloride 110 H (98-107) mmol/L Carbon Dioxide 28 (21-32) mmol/L Anion Gap 6 (3-11) BUN 22 (6-23) mg/dl Creatinine 0.79 (0.6-1.4) mg/dl Est Cr Clr Drug Dosing 109.3 ml/min eGFR 108.23 BUN/Creatinine Ratio 27.8 H (10-20) Glucose 124 H (70-99(Fasting)) mg/dl Calcium 9.4 (8.6-10.3) mg/dl Magnesium 1.8 (1.7-2.4) mg/dl Total Bilirubin 0.3 (0.2-1.0) mg/dl AST 17 (13-39) U/L ALT 12 (7-52) U/L Alkaline Phosphatase 75 (34-104) U/L Troponin I High Sens 2.9 (0-20) pg/ml Total Protein 6.4 (6.0-8.3) gm/dl Albumin 4.3 (3.4-5.0) gm/dl Globulin 2.1 L (2.5-4.0) gm/dl Albumin/Globulin Ratio 2.0 (0.9-2) Lipase 11 (11-82) U/L TSH 1.785 (0.300-4.500) uIu/ml Urine Color Urine Appearance (Clear) Urine pH (4.5-7.5) Ur Specific [place] (1.000-1.030) Urine Protein (Negative) Urine Glucose (UA) (Negative) Urine Ketones (Negative) Urine Blood (Negative) Urine Nitrite (Negative) Urine Bilirubin (Negative) Urine Urobilinogen (Negative) Ur Leukocyte Esterase (Negative) SARS-CoV-2 (PCR) (Negative) Diagnostic Findings Chest X-Ray 02/13/25 09:56 XR chest 1V portable CLINICAL HISTORY: fall while on treadmill COMPARISON STUDY: 01/23/2025 FINDINGS: There is stable moderate cardiomegaly without pulmonary vascular congestion. No effusion, consolidation, or pneumothorax. There is an interval fracture at the greater tuberosity of the left humeral head. IMPRESSION: 1. Fracture at the left humeral head. 2. No other acute findings seen in the chest. ACT 112: Negative or not required by law. Electronically signed by: Brian Jacobo M.D. 02/13/2025 10:[address] 02/13/25 09:56 CT head/brain wo con CLINICAL HISTORY: fall on treadmill. TECHNIQUE: Multiple axial CT images of the head were obtained without contrast. A dose lowering technique was utilized adhering to the principles of ALARA. CT DOSE: 2374.14 mGy.cm COMPARISON: 01/23/2025 FINDINGS: There is motion artifact. There are stable bilateral subdural CSF density collections measuring 11 mm maximal thickness on the coronal imaging. Stable minimal left to right midline shift. No acute intracranial hemorrhage seen. No hydrocephalus. Stable mucosal thickening at the right maxillary sinus. No skull fracture. IMPRESSION: 1. No acute findings. 2. 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 ACT 112: Negative or not required by law. The above report was generated using voice recognition software. It may contain grammatical, syntax or spelling errors. Electronically signed by: Brian Jacobo M.D. 02/13/2025 10:58 AM Shoulder X-Ray 02/13/25 11:51 XR shoulder LT min 2V routine CLINICAL HISTORY: Fall, L humeral head fx on cxr COMPARISON: None FINDINGS: There is an acute minimally displaced fracture at the greater tuberosity of the proximal humerus. No other fracture or dislocation seen. IMPRESSION: Acute fracture proximal humerus. ACT 112: Negative or not required by law. Electronically signed by: Brian Jacobo M.D. 02/13/2025 12:36 PM Shoulder X-Ray 02/13/25 13:03 XR shoulder LT 1V CLINICAL HISTORY: injury, transcapular lateral view requested COMPARISON: 02/13/2025 FINDINGS: There is mild anterior subluxation at the glenohumeral joint on the lateral views. Minimally displaced fracture at the greater tuberosity is redemonstrated. IMPRESSION: 1. Stable greater tuberosity fracture. 2. Mild anterior subluxation. ACT 112: Negative or not required by law. Electronically signed by: Brian Jacobo M.D. 02/13/2025 1:59 PM
--- NOTE | 2025-02-13 17:21 | Emergency Department Note ---
ED Visit Note I was consulted by the Advanced Practice Provider. I personally made/approved the management plan and take responsibility for the patient management. I did not perform a substantive portion of the visit and was available for consultation and management recommendation only. .
--- NOTE | 2025-02-13 17:47 | XCELERA ---
[id number]
[2025-02-13] MEDS: ACETAMINOPHEN 325 MG TAB PO SCH (17:58)
[2025-02-13] MEDS: DOCUSATE SODIUM 100 MG CAP PO SCH (20:30)
[2025-02-13] MEDS: PHENobarbitaL 30 MG TAB PO SCH (20:30)
[2025-02-13] MEDS: AMMONIUM LACTATE 12% LOTION 225 GM BTL EXT SCH (20:30)
[2025-02-13] MEDS: CETIRIZINE HCL 10 MG TABLET PO SCH (20:30)
--- NOTE | 2025-02-13 21:45 | Electrocardiogram Report ---
Test Reason : Blood Pressure : */* mmHG Vent. Rate : 63 BPM Atrial Rate : 63 BPM P-R Int : 146 ms QRS Dur : 82 ms QT Int : 430 ms P-R-T Axes : 87 -28 27 degrees QTcB Int : 440 ms Normal sinus rhythm Abnormal ECG When compared with ECG of 23-Jan-2025 09:42, No significant change Confirmed by Scooter Morrison ([id number]) on 02/13/2025 9:44:51 PM Referred By: REFERRED SELF Confirmed By: Scooter Morrison
[2025-02-14 06:11] LABS: Basophils # (auto) 0.02 K/uL (0.00-0.20); Basophils % (auto) 0.4 %; Eosinophils # (auto) 0.04 K/uL (0.00-0.50); Eosinophils % (auto) 0.7 %; Hemoglobin 10.3 g/dl (14.0-18.0); Immature Granulocytes # (auto) 0.02 K/uL (0.01-0.20); Immature Granulocytes % (auto) 0.4 %; Lymphocytes # (auto) 1.94 K/uL (1.20-3.40); Mean Corpuscular Hemoglobin 32.2 pg (25.0-34.0); Mean Corpuscular Hgb Conc 33.2 g/dL (32.0-36.0); Mean Corpuscular Volume 96.9 fL (80.0-100.0); Mean Platelet Volume 11.5 fL (9.4-12.4); Monocytes # (auto) 0.47 K/uL (0.11-0.59); Monocytes % (auto) 8.2 %; Neutrophils # (auto) 3.22 K/uL (1.40-6.50); Neutrophils % (auto) 56.3 %; Platelet Count 83 K/uL (130-400); RDW Coefficient of Variation 14.7 % (11.5-14.5); RDW Standard Deviation 52.3 fL (36.4-46.3); White Blood Count 5.71 K/ul (4.8-10.8)
[2025-02-14 06:34] LABS: Calcium 8.8 mg/dl (8.6-10.3); Creatinine Clr Calc Pharmacy 105.7 ml/min; Magnesium 1.8 mg/dl (1.7-2.4)
[2025-02-14] MEDS: FLUTICASONE PROPIONATE NA SPR 16 GM BTL SCH (08:31)
[2025-02-14] MEDS: FAMOTIDINE 40 MG TABLET PO SCH (08:32)
[2025-02-14] MEDS: linaCLOtide 72 MCG CAPSULE PO SCH (08:32)
[2025-02-14] MEDS: CHOLECALCIFEROL 25 MCG (1000 UNITS) TAB PO SCH (10:10)
--- NOTE | 2025-02-14 11:05 | Orthopedic Progress Note ---
Date of Service February 14, 2025 Assessment & Plan (1) Left humeral fracture: Plan: Left proximal humerus fracture, minimally displaced, acceptable alignment. Will continue to plan for nonoperative treatment. Continue the sling and swath. Ice to left shoulder as needed for pain or swelling. May be comfortable with head of bed elevated. May be out of bed, ambulating as tolerated. Nonweightbearing of his left upper extremity for 4 to 6 weeks from injury. No range of motion of the left shoulder at this time. May do gentle active range of motion of his hand wrist and forearm as tolerated. Okay from an orthopedic standpoint for discharge back to home today. Follow-up with [facility] orthopedics in 10 to 14 days as scheduled. Call [phone] with any increased pain, swelling, questions, concerns or need to reschedule or confirm appointment. (2) Vitamin D deficiency: Plan: Would recommend 50,000 international units every 7 days for the next 6 weeks. Will recheck at that time. Ordered to start today. Admission and Anticipated Discharge Date Admission Date: February 13, 2025 Subjective Patient is resting in bed. He is at bedside. He resides at [facility]. He states that overall he is doing well. When asked if he has pain in his shoulder he says yes. He denies pain anywhere else. Mom states this he has not complained of anything. He is tolerating a regular diet. She is wondering if he can be discharged back home today. Physical Exam Musculoskeletal: Exam of left upper extremity: Sling and swath is intact. No significant edema of his left forearm or hand. His fingers move freely. Distal pulses are 2+. Sensation seems to be normal. No range of motion attempted to the left shoulder. Localized swelling. No visualized ecchymosis. Skin is intact and healthy. Sling adjusted slightly. Results & Data Vital Signs (Past 12 Hours) Vital Signs Temp Pulse Pulse Resp BP Pulse Ox O2 Del Method 02/14/25 07:31 37.0 C 64 16 107/71 100 Room Air 02/14/25 07:15 55 L 02/14/25 04:28 36.5 C 58 L 20 117/78 98 Room Air 02/14/25 00:00 66 02/14/25 00:00 36.6 C 62 20 114/73 98 Room Air Laboratory Results 02/14/25 02/13/25 02/13/25 Range/Units 05:26 12:56 11:45 WBC 5.71 (4.8-10.8) K/ul RBC 3.20 L (4.70-6.10) M/uL Hgb 10.3 L (14.0-18.0) g/dl Hct 31.0 L (42.0-52.0) % MCV 96.9 (80.0-100.0) fL MCH 32.2 (25.0-34.0) pg MCHC 33.2 (32.0-36.0) g/dL RDW Std Deviation 52.3 H (36.4-46.3) fL RDW Coeff of Millicent 14.7 H (11.5-14.5) % Plt Count 83 L (130-400) K/uL MPV 11.5 (9.4-12.4) fL Immature Gran % (Auto) 0.4 % Neut % (Auto) 56.3 % Lymph % (Auto) 34.0 % [place] % (Auto) 8.2 % Eos % (Auto) 0.7 % Baso % (Auto) 0.4 % Neut # (Auto) 3.22 (1.40-6.50) K/uL Lymph # (Auto) 1.94 (1.20-3.40) K/uL [place] # (Auto) 0.47 (0.11-0.59) K/uL Eos # (Auto) 0.04 (0.00-0.50) K/uL Baso # (Auto) 0.02 (0.00-0.20) K/uL Immature Gran # (Auto) 0.02 (0.01-0.20) K/uL PT (9.0-12.0) Seconds INR (0.9-1.1) APTT (21-31) Seconds PTT Ratio Sodium 144 (136-145) mmol/L Potassium 4.0 (3.5-5.1) mmol/L Chloride 111 H (98-107) mmol/L Carbon Dioxide 29 (21-32) mmol/L Anion Gap 4 (3-11) BUN 17 (6-23) mg/dl Creatinine 0.81 (0.6-1.4) mg/dl Est Cr Clr Drug Dosing 105.7 ml/min eGFR 107.41 BUN/Creatinine Ratio 21.0 H (10-20) Glucose 92 (70-99(Fasting)) mg/dl Calcium 8.8 (8.6-10.3) mg/dl Magnesium 1.8 (1.7-2.4) mg/dl Troponin I High Sens < 2.3 (0-20) pg/ml 25-OH Vitamin D Total 10.9 L (30-100) ng/ml TSH (0.300-4.500) uIu/ml Urine Color Dark Yellow Urine Appearance Clear (Clear) Urine pH 6.5 (4.5-7.5) Ur Specific [place] 1.018 (1.000-1.030) Urine Protein Negative (Negative) Urine Glucose (UA) Negative (Negative) Urine Ketones Negative (Negative) Urine Blood Negative (Negative) Urine Nitrite Negative (Negative) Urine Bilirubin Negative (Negative) Urine Urobilinogen Negative (Negative) Ur Leukocyte Esterase Negative (Negative) SARS-CoV-2 (PCR) (Negative) 02/13/25 02/13/25 Range/Units 11:40 10:15 WBC (4.8-10.8) K/ul RBC (4.70-6.10) M/uL Hgb (14.0-18.0) g/dl Hct (42.0-52.0) % MCV (80.0-100.0) fL MCH (25.0-34.0) pg MCHC (32.0-36.0) g/dL RDW Std Deviation (36.4-46.3) fL RDW Coeff of Millicent (11.5-14.5) % Plt Count (130-400) K/uL MPV (9.4-12.4) fL Immature Gran % (Auto) % Neut % (Auto) % Lymph % (Auto) % [place] % (Auto) % Eos % (Auto) % Baso % (Auto) % Neut # (Auto) (1.40-6.50) K/uL Lymph # (Auto) (1.20-3.40) K/uL [place] # (Auto) (0.11-0.59) K/uL Eos # (Auto) (0.00-0.50) K/uL Baso # (Auto) (0.00-0.20) K/uL Immature Gran # (Auto) (0.01-0.20) K/uL PT 11.2 (9.0-12.0) Seconds INR 1.0 (0.9-1.1) APTT 27 (21-31) Seconds PTT Ratio 1.0 Sodium (136-145) mmol/L Potassium (3.5-5.1) mmol/L Chloride (98-107) mmol/L Carbon Dioxide (21-32) mmol/L Anion Gap (3-11) BUN (6-23) mg/dl Creatinine (0.6-1.4) mg/dl Est Cr Clr Drug Dosing ml/min eGFR BUN/Creatinine Ratio (10-20) Glucose (70-99(Fasting)) mg/dl Calcium (8.6-10.3) mg/dl Magnesium (1.7-2.4) mg/dl Troponin I High Sens 2.9 (0-20) pg/ml 25-OH Vitamin D Total (30-100) ng/ml TSH 1.785 (0.300-4.500) uIu/ml Urine Color Urine Appearance (Clear) Urine pH (4.5-7.5) Ur Specific [place] (1.000-1.030) Urine Protein (Negative) Urine Glucose (UA) (Negative) Urine Ketones (Negative) Urine Blood (Negative) Urine Nitrite (Negative) Urine Bilirubin (Negative) Urine Urobilinogen (Negative) Ur Leukocyte Esterase (Negative) SARS-CoV-2 (PCR) NEGATIVE (Negative)
[2025-02-14 11:18] VITALS: BP 104/70; RESP 18; TEMP 97.5; O2SAT 99
--- NOTE | 2025-02-14 12:32 | Discharge Summary ---
Discharge Summary Date of Service February 14, 2025 Principal Dx & Hospital Course #1 = Principal Diagnosis (1) Fall: (2) Left humeral fracture: (3) Syncope: (4) Acquired intellectual disability: Plan This patient is a 49-year-old male with PMH of acquired intellectual disability, seizure disorder, chronic SDH, bowel impaction, anemia, thrombocytopenia who presented on the morning of 02/13 after sustaining a fall while walking on the treadmill. Coming in for a syncope workup + proximal left humeral head fracture. #Left humeral head fracture- Noted on CXR and confirmed with left shoulder xray, minimal/no displacement. Seen by Ortho and recommends sling/swath, NWB LUE for 4 to 6 weeks from injury. No range of motion of the left shoulder at this time. May do gentle active range of motion of his hand wrist and forearm as tolerated. Follow-up with [facility] orthopedics in 10 days as scheduled. Acetaminophen 650 mg p.o. q6h prn pain #Vitamin D deficiency-Vit D level checked here due to fracture from fall from standing height and noted to be low at 10 -start Vit D2 97025 unit once weekly -f/u Vit D levels as outpt in 3 months #Fall/possible syncope-Unable to obtain history from patient due to ID, however deicer repairer electric reports that the patient suddenly "dropped" but was awake immediately after the fall, no seizure activity. Seems most likely mechanical in nature. No arrhythmias on tele, ECHO normal, ECG normal, troponin negative. Orthostatics negative. Head CT on 02/13 revealed no acute findings; stable exam when compared to subdural hygromas from prior exam on 01/23 Seen by PT and ok for discharge to [facility] with caretakers #history of subdural (hygromas vs subdural hematomas)-Patient presented on 01/[address] for recurrent falls. 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 Transferred to to [facility] at that time (01/24). Discharged shortly thereafter, as his subdural fluid collections are said to be chronic Additionally: Patient was treated for PNA + influenza A noted at [facility], and discharged on Tamiflu and antibiotics (Augmentin + azithromycin) Per neurosurgery visit on 01/31: low risk of complications unless expansion occurs CT head this admission unchanged. No new neurological issues and mentation at baseline #Acquired intellectual disability-Noted, lives with 31/05 care #Seizure disorder-Last seizure was reportedly in 2004 -Continue phenobarbital VTE proph-SCDs Dispo-stable for dc to home Notes For Next Care Provider Medication Changes From Visit Added Vit D2 64295 units once weekly Admission HPI Per Admitting Provider Adan is a 49-year-old male with PMH of acquired intellectual disability, shingles, seizure disorder, and anxiety. He presented on 02/13 after sustaining a fall while walking on a treadmill at [employer] this morning. History is obtained from patient's deicer repairer electric (Christina) at bedside, as well as patient's mother over the phone. Per deicer repairer electric, patient was in normal state of health this morning, and was excited about this now. He was walking on the treadmill at a setting of 1.6. Then, patient suddenly "dropped". Fresh Foods Technician did not witness him going down. He fell onto the treadmill and was pushed backwards on the conveyor belt, and likely struck his head against a wall. No blood thinners. Patient does report the events of this were "fuzzy", and he does believe he lost consciousness momentarily. No prior history of syncope to caretakers knowledge. Both patient and nursing staff are unsure what caused him to fall; no tripping, no dizziness prior to fall. There was no witnessed seizure-like activity at this time; no jerking, tongue biting, or loss of urinary continence. However, patient was "dazed and confused" following the event; he was not unconscious immediately following this event, per deicer repairer electric. [employer] Technician denies any strokelike symptoms such as slurred speech, facial droop, unilateral deficits. Patient does have a history of seizures, but did take his regular seizure medicine last night (phenobarbital at 9 PM), and his last seizure was back in 2004 (20 years ago). Patient also took his regular morning medications today; no recent change in medications. Remote history of subdural hematoma 2 weeks ago requiring transfer to [facility]. Prior to subdural, patient had 2 overnight falls while in his bedroom, and was having difficulty standing on his feet. Patient's vitals are stable at time admission. ED course: Difficult to obtain ROS given patient's underlying intellectual disability: [employer] Technician reports that he does not do well in conveying pain Unclear on the left shoulder pain. However, patient/deicer repairer electric does deny fever, chills, night sweats, chest pain, difficulty breathing, or abdominal pain. Discharge Exam Constitutional WD/WN, vitals as above Respiratory normal respiratory effort, lungs clear to auscultation Cardiovascular RRR, no murmur, no edema Musculoskeletal Extremities: + extremities abnormal to inspection (LUE in sling, no ecchymosis over shoulder) Psychiatric awake and alert, cooperative Discharge Plan Discharge Items Patient Disposition: Personal Detention Reason For Visit: SYNCOPE, FALL, L HUMERAL FX Discharge Diagnosis: Fall Left humerus fracture Vitamin D deficiency Condition on Discharge: Good Activity: As commented below Lifting Comment: None with left arm Bathing: No limitations Exercise/Sports: As tolerated Exercise Comment: non-weight bearing on left upper extremity Weightbearing: Left non-weightbearing Weightbearing Comment: Upper extremity Non-emergency contact: Primary Care Provider and Surgeon Call non-emergency contact if: you have any medication questions, your symptoms worsen and your pain is not controlled Follow-up/Referrals: Joaquin Odonnell, [Primary Care Provider] - (Follow up within 1-2 weeks) Nanda Pittman PA-C [Physician Business Intelligence Engineer] - 02/26/25 9:30 am Diet: Regular Addtl Attending Provider Instructions: Please take tylenol as needed for pain. Your vitamin D level was very low and you were started on a vitamin D supplement. Addtl Design Assistant Provider Instructions: Orthopedic instructions: Nonweightbearing left upper extremity at all times. Sling and swath the left upper extremity at all times. No range of motion of the left shoulder. We do gentle range of motion of the left elbow, forearm, wrist and fingers as tolerated. Ice to left shoulder as needed for pain or swelling. Elevate left hand as needed for swelling. No use of left upper extremity. May be out of bed, ambulating as tolerated. Okay to remove sling, drop arm to his side to clean under the arm as needed. Follow-up with [facility] orthopedics in approximately 10 days for repeat x-rays and check of his left shoulder. No plans for surgical intervention at this time. Call [phone] with any increased pain, swelling, questions or concerns or need to confirm or reschedule appointment. Pending Studies at Discharge: No Stand-Alone Forms: My [facility] Skilled Items Patient informed of condition?: Yes DNR: No Discharge Level of Care: Other Communicable Disease: No Discharge Prognosis: Improving Lines: None Urinary Catheter: No Medications and DC Order Prescriptions: New ergocalciferol (vitamin D2) 1,250 mcg (50,000 unit) Capsule 1,250 mcg PO Q7D Qty: 4 0RF Continued levocetirizine 5 mg tablet 5 mg PO HS Qty: 90 3RF vitamin B complex-folic acid [B Complex 1 (with folic acid)] 0.4 mg tablet 1 tab PO DAILY Qty: 30 11RF phenobarbital 60 mg tablet 120 mg PO QPM Qty: 60 5RF Linzess 72 mcg capsule 72 mcg PO QAM Qty: 31 11RF Rx Instructions: TAKE 1 CAPSULE BY MOUTH ONCE DAILY. (NOT A CYCLE MED PLEASE REORDER) fluoride (sodium) 1.1 % paste 1 applic dental BID ammonium lactate 12 % cream 1 appln TOP BID docusate sodium [Dulcolax Stool Softener (dss)] 100 mg capsule 100 mg PO BID famotidine 40 mg tablet 40 mg PO QAM acetic acid 2 % solution 5 drp otic (ear) QAM Qty: 15 5RF Rx Instructions: Administer at 8 AM daily. Administer into both ears. acetaminophen 500 mg Tablet 500 mg PO Q6H PRN (Reason: Pain/Fever) polyethylene glycol 3350 17 gram/dose powder 17 g PO BID PRN (Reason: Constipation) Rx Instructions: Continue until pt has BM then stop Clinere Ear Wax Removal 6.5 % drops 5 drp otic (ear) WK Rx Instructions: Apply every Wednesday fluticasone propionate [Flonase Allergy Relief] 50 mcg/actuation spray,suspension 2 spray INTNAS QAM Rx Instructions: administer into each nostril Discharge Orders: Discharge Order (Routine); Ordered 02/14/25 Ordered By: Ammy Flores Admission Data Admit Date/Time: 02/13/25 13:12 Attending Provider: Ammy Flores Admit Provider: Lynnette Hardin Primary Care Provider: Joaquin Odonnell Other Providers: Lynnette Hardin; Ron Valdes Hospital Stay Data Consultations 02/13/25 11:51 ED Decision to Admit Stat 02/13/25 13:14 Consult Orthopedic Surgery Routine Diagnostic Imagining Performed 02/13/25 09:56 CT head/brain wo con Stat ECHO Pending Results Patient Have Any Pending Studies at Discharge: No Discharge Instructions Given to Patient (Per Discharging Provider) Please take tylenol as needed for pain. Your vitamin D level was very low and you were started on a vitamin D supplement. Total Time Total Time Spent Total Time Spent (In Minutes): 35 min Coding Level of Care Code 13931 INP/OBS DISCH >30 MIN Diagnoses Fall W19.XXXA Left humeral fracture S42.302A Syncope R55 Acquired intellectual disability F79
[2025-02-14] MEDS: ERGOCALCIFEROL 1250 MCG (50,000 UNITS) CAP PO SCH (13:17)
[2025-02-14 14:00] VITALS: PULSE 68
== END 2025-02-14 14:12 | disposition home or self-care (01) | DRG 562 ==
LOC: ED 09:13 → SUATTDRO 13:12 → EDINP 13:12 → INTOOBSV 13:12 → EDINP 16:19 → 2N 17:06

== ENCOUNTER 2025-09-29 09:21 | Inpatient (IN) ==
--- NOTE | 2025-09-29 09:40 | Emergency Department Note ---
History of Present Illness General Chief complaint: Flank Pain Stated complaint: KIDNEY STONE Time Seen by Provider: 09/29/25 09:25 Source: RN notes reviewed Limitations: other (Patient has intellectual disability) History of Present Illness Provider complaint: Fever flank pain dysuria Maximum Pain Intensity: 4 50-year-old male with history of cognitive developmental delay and intellectual disability presents emergency department with fever dysuria. Patient reportedly has kidney stones. Home Medications Medication Instructions Recorded Confirmed Type ammonium lactate 12 % topical cream 1 appln topical BID 05/29/20 09/26/25 History fluoride (sodium) 1.1 % dental 1 applic dental BID 01/26/24 09/26/25 History paste acetic acid 2 % ear solution 5 drp otic (ear) QAM #15 mL 08/31/24 09/26/25 Rx acetaminophen 500 mg tablet 500 mg PO Q6H PRN Pain/Fever 02/13/25 09/26/25 History carbamide peroxide 6.5 % ear drops 5 drp otic (ear) WK 02/13/25 09/26/25 History (Clinere Ear Wax Removal) linaclotide 72 mcg capsule 72 mcg PO QAM #31 caps 02/13/25 09/26/25 Rx (Linzess) polyethylene glycol 3350 17 17 g PO BID PRN Constipation 02/13/25 09/26/25 History gram/dose oral powder ibuprofen 200 mg tablet (Motrin IB) 200 mg PO .COMPLEX PRN pain 02/15/25 09/26/25 History docusate sodium 100 mg capsule 100 mg PO BID #60 caps 03/16/25 09/26/25 Rx (Dulcolax Stool Softener (docusate)) famotidine 40 mg tablet 40 mg PO QAM #30 tabs 03/16/25 09/26/25 Rx levocetirizine 5 mg tablet 5 mg PO HS #90 tabs 03/16/25 09/26/25 Rx ergocalciferol (vitamin D2) 1,250 1,250 mcg PO Q7D #4 caps 04/16/25 09/26/25 Rx mcg (50,000 unit) capsule phenobarbital 60 mg tablet 120 mg (2 x 60 mg) PO QPM #60 tabs 05/23/25 09/26/25 Rx fluticasone propionate 50 2 spray intranasal QAM #16 grams 08/03/25 09/26/25 Rx mcg/actuation nasal spray,suspension (Flonase Allergy Relief) vitamin B complex-folic acid 0.4 1 tab PO DAILY #30 tabs 08/14/25 09/26/25 Rx mg tablet (B Complex 1 (with folic acid)) cholecalciferol (vitamin D3) 50 50 mcg PO DAILY #30 caps 09/11/25 09/26/25 Rx mcg (2,000 unit) capsule guaifenesin 600 mg tablet, 600 mg PO Q12H PRN congestion #20 09/25/25 09/26/25 Rx extended release 12 hr (Mucinex) tabs desmopressin 0.2 mg tablet 0.2 mg PO HS #90 tabs 09/26/25 09/26/25 Rx Allergies Allergy/AdvReac Type Severity Reaction Status Date / Time brompheniramine AdvReac Unknown interferes Verified 09/26/25 13:16 with phenobarbitol phenylpropanolamine AdvReac Unknown interferes Verified 09/26/25 13:16 with phenobarbitol Past Med/Surg History Problem List (Updated 09/29/25 @ 17:18 by Jairo Church MD) Pneumonia (Acute) Acute UTI (Acute) Acute dehydration Cystitis Encounter for preoperative assessment (Acute) Nocturnal enuresis (Chronic) Excessive cerumen in ear canal Vitamin D deficiency Left humeral fracture (Acute) Pneumonia Incontinence (Chronic) Cerumen impaction Nephrolithiasis (Chronic) Recurrent incisional hernia Colonic mass Constipation Fecal retention on CT scan Will order Dulcolax suppository now and continue home PO Stool softener this evening. Patient may need further bowel regimen postoperatively including possible enema. Obstipation Ventral incisional hernia Hernia Anemia Anxiety Mental retardation Ventral hernia with bowel obstruction Seizure disorder Obesity (BMI 30.0-34.9) Mass of hepatic flexure of colon Foot callus Dermatitis, seborrheic [place] or callus Neal hemangioma Cardiomegaly Allergic rhinitis Acquired intellectual disability (Acute) Dysfunction of eustachian tube Shingles Conductive hearing loss in right ear Congestion of nasal sinus Mixed conductive and sensorineural hearing loss of left ear with restricted hearing of right ear Eczema Medical History Urge incontinence of urine Fall History of fecal impaction History of intestinal obstruction Constipation GERD (gastroesophageal reflux disease) Seizure disorder Surgical History Surgical history unknown H/O myringotomy Family History (Updated 09/29/25 @ 16:49 by Adam Nelson MD, PhD) Father , at 73 years of age from complications following heart valve replacement, not otherwise specified. Heart disease Mother No problems noted. Other Family history non-contributory No significant family history Denies family history of Malignant hyperthermia Ovarian cancer Prostate cancer Myocardial infarction Adverse anesthesia outcome Breast cancer Bleeding disorder Colorectal cancer Social History (Updated 09/29/25 @ 16:51 by Adam Nelson MD, PhD) Smoking Status: Never smoker Second Hand Exposure: No; Do You Dip or Chew Tobacco: No; Hx Alcohol Use: No Hx Substance Use: No Preferred Language: [place] Communication Ability: Effective Communication Ability Comment: Patient speaks articulately/fluently, albeit slowly. Visual Impairment: No Limitations Hearing Ability: Hard of Hearing Mobile Equipment Operator Required: No Beliefs That Will Affect Care: None marital status: Single marital status details: Never , , or . No children living or . Current Living Situation: Personal Care Facility Current Living Situation Comment: Pt [facility] current occupational status: employed and unemployed current occupation: Works part-time @ [employer] as [employer], for the past 8 years. How many Children do You have: 0 other: Ambulates without assistance from cane, walker, or wheelchair. Feels Safe at Home: Yes Childhood Exposure to Second-Hand Smoke: No Diet: other Diet Comment: 1800 calorie caffeine: No during the past year weight has: remained stable Dental Care, Regularly: Yes Physical Activity Frequency: Daily Seatbelt Use: always Sunscreen Use: Yes Assistive Devices: None Physical Exam Vital Signs Vital Signs - 24 hr 09/29/25 09:26 09/29/25 09:26 09/29/25 09:26 Temperature Temperature Source Pulse Rate Pulse Rate [Apical] Pulse Rate from SpO2 Sensor Respiratory Rate Respiratory Effort / Characteristics Respiratory Depth Blood Pressure 121/69 121/69 121/69 Blood Pressure [Right Arm] Blood Pressure Mean 110 110 110 Blood Pressure Mean [Right Arm] Blood Pressure Position Pulse Oximetry Oxygen Delivery Method Sepsis Recent Fever Within 48 Hours Sepsis New/Unexplained Change in Mental Status Sepsis Action Taken by Nursing 09/29/25 09:26 09/29/25 09:27 09/29/25 09:29 Temperature Temperature Source Pulse Rate 90 90 Pulse Rate [Apical] Pulse Rate from SpO2 Sensor 90 Respiratory Rate 16 Respiratory Effort / Characteristics Respiratory Depth Blood Pressure 121/69 Blood Pressure [Right Arm] Blood Pressure Mean 110 Blood Pressure Mean [Right Arm] Blood Pressure Position Pulse Oximetry 94 Oxygen Delivery Method Sepsis Recent Fever Within 48 Hours Sepsis New/Unexplained Change in Mental Status Sepsis Action Taken by Nursing 09/29/25 09:30 09/29/25 09:30 09/29/25 09:42 Temperature 37.9 C H Temperature Source Oral Pulse Rate 90 90 84 Pulse Rate [Apical] Pulse Rate from SpO2 Sensor 89 85 Respiratory Rate 18 19 17 Respiratory Effort / Characteristics Non-Labored Spontaneous Respiratory Depth Normal Blood Pressure 121/69 Blood Pressure [Right Arm] Blood Pressure Mean 86 Blood Pressure Mean [Right Arm] Blood Pressure Position Sitting Pulse Oximetry 94 94 93 Oxygen Delivery Method Room Air Sepsis Recent Fever Within 48 Hours No Sepsis New/Unexplained Change in Mental Status No Sepsis Action Taken by Nursing No Action Required 09/29/25 09:51 09/29/25 10:00 09/29/25 10:12 Temperature Temperature Source Pulse Rate 86 92 H 79 Pulse Rate [Apical] Pulse Rate from SpO2 Sensor 86 90 79 Respiratory Rate 15 19 17 Respiratory Effort / Characteristics Respiratory Depth Blood Pressure Blood Pressure [Right Arm] Blood Pressure Mean Blood Pressure Mean [Right Arm] Blood Pressure Position Pulse Oximetry 94 95 95 Oxygen Delivery Method Sepsis Recent Fever Within 48 Hours Sepsis New/Unexplained Change in Mental Status Sepsis Action Taken by Nursing 09/29/25 10:21 09/29/25 10:30 09/29/25 10:54 Temperature Temperature Source Pulse Rate 79 76 81 Pulse Rate [Apical] Pulse Rate from SpO2 Sensor 79 77 81 Respiratory Rate 20 15 16 Respiratory Effort / Characteristics Respiratory Depth Blood Pressure Blood Pressure [Right Arm] Blood Pressure Mean Blood Pressure Mean [Right Arm] Blood Pressure Position Pulse Oximetry 95 95 93 Oxygen Delivery Method Sepsis Recent Fever Within 48 Hours Sepsis New/Unexplained Change in Mental Status Sepsis Action Taken by Nursing 09/29/25 11:00 09/29/25 11:03 09/29/25 11:03 Temperature 36.9 C Temperature Source Oral Pulse Rate 76 Pulse Rate [Apical] 78 Pulse Rate from SpO2 Sensor 77 Respiratory Rate 22 16 Respiratory Effort / Characteristics Respiratory Depth Blood Pressure 114/73 Blood Pressure [Right Arm] 114/73 Blood Pressure Mean 82 Blood Pressure Mean [Right Arm] 86 Blood Pressure Position Pulse Oximetry 92 92 Oxygen Delivery Method Room Air Sepsis Recent Fever Within 48 Hours Sepsis New/Unexplained Change in Mental Status Sepsis Action Taken by Nursing 09/29/25 11:03 09/29/25 11:03 09/29/25 11:03 Temperature Temperature Source Pulse Rate Pulse Rate [Apical] Pulse Rate from SpO2 Sensor Respiratory Rate Respiratory Effort / Characteristics Respiratory Depth Blood Pressure 114/73 114/73 114/73 Blood Pressure [Right Arm] Blood Pressure Mean 82 82 82 Blood Pressure Mean [Right Arm] Blood Pressure Position Pulse Oximetry Oxygen Delivery Method Sepsis Recent Fever Within 48 Hours Sepsis New/Unexplained Change in Mental Status Sepsis Action Taken by Nursing 09/29/25 11:03 09/29/25 11:03 09/29/25 13:30 Temperature Temperature Source Pulse Rate 81 73 Pulse Rate [Apical] Pulse Rate from SpO2 Sensor 75 73 Respiratory Rate 21 14 Respiratory Effort / Characteristics Respiratory Depth Blood Pressure 114/73 Blood Pressure [Right Arm] Blood Pressure Mean 82 Blood Pressure Mean [Right Arm] Blood Pressure Position Pulse Oximetry 92 95 Oxygen Delivery Method Sepsis Recent Fever Within 48 Hours Sepsis New/Unexplained Change in Mental Status Sepsis Action Taken by Nursing 09/29/25 13:30 09/29/25 13:32 09/29/25 13:32 Temperature Temperature Source Pulse Rate Pulse Rate [Apical] Pulse Rate from SpO2 Sensor Respiratory Rate Respiratory Effort / Characteristics Respiratory Depth Blood Pressure 97/69 L 99/65 L 99/65 L Blood Pressure [Right Arm] Blood Pressure Mean 76 74 74 Blood Pressure Mean [Right Arm] Blood Pressure Position Pulse Oximetry Oxygen Delivery Method Sepsis Recent Fever Within 48 Hours Sepsis New/Unexplained Change in Mental Status Sepsis Action Taken by Nursing 09/29/25 13:32 09/29/25 13:32 09/29/25 13:32 Temperature Temperature Source Pulse Rate Pulse Rate [Apical] Pulse Rate from SpO2 Sensor Respiratory Rate Respiratory Effort / Characteristics Respiratory Depth Blood Pressure 99/65 L 99/65 L 99/65 L Blood Pressure [Right Arm] Blood Pressure Mean 74 74 74 Blood Pressure Mean [Right Arm] Blood Pressure Position Pulse Oximetry Oxygen Delivery Method Sepsis Recent Fever Within 48 Hours Sepsis New/Unexplained Change in Mental Status Sepsis Action Taken by Nursing 09/29/25 13:33 Temperature Temperature Source Pulse Rate 71 Pulse Rate [Apical] Pulse Rate from SpO2 Sensor Respiratory Rate Respiratory Effort / Characteristics Respiratory Depth Blood Pressure Blood Pressure [Right Arm] Blood Pressure Mean Blood Pressure Mean [Right Arm] Blood Pressure Position Pulse Oximetry Oxygen Delivery Method Sepsis Recent Fever Within 48 Hours Sepsis New/Unexplained Change in Mental Status Sepsis Action Taken by Nursing Physical Exam NECK: Normal range of motion. Neck supple. No JVD present. CV: Tachycardic rate, regular rhythm, normal heart sounds and intact distal pulses. There is no peripheral edema. Palpable radial pulses bue. PULM/CHEST: Effort normal and breath sounds normal. No respiratory distress. No stridor. no wheezes. no rales. ABD: The abdomen is soft. There is tenderness to palpation of the right lower quadrant. NEURO: Motor and sensation grossly intact. Course Course 924: The patient was evaluated in room B7. A complete history and physical exam was performed Cardiac monitoring: An order was placed for continuous cardiac monitoring. The monitor shows a rate of 100 with sinus rhythm interpreted by me 1245: Vital signs stable. Labs show leukocytosis of 16. Urinalysis concerning for UTI. Patient treated with Rocephin. CT abdomen pelvis shows a small consolidation right middle lobe. Azithromycin added to the patient's antibiotic regimen. Given the patient's developmental delay and living in a longterm I discussed with the lawn caretaker who is at bedside we both felt would be best for the patient be admitted for IV antibiotics before being sent to longterm. Patient will be evaluated for admission by the [facility] team. Administered Medications Sodium Chloride (Nss) 1,000 mls @ 82 mls/hr IV .[id number] ONE Stop: 09/30/25 04:59 Last Admin: 09/29/25 17:12 Dose: 82 mls/hr Documented By: sarah Discontinued Medications Azithromycin (Azithromycin 250 Mg Tab) 500 mg PO NOW ONE Stop: 09/29/25 12:44 Last Admin: 09/29/25 12:53 Dose: 500 mg Documented By: nilton Famotidine (Famotidine 40 Mg Tablet) 40 mg PO ONE ONE Stop: 09/29/25 14:16 Last Admin: 09/29/25 17:12 Dose: 40 mg Documented By: sarah Sodium Chloride (Nss) 1,000 mls @ 999 mls/hr IV .Q1H1M ONE Stop: 09/29/25 10:33 Last Infusion: 09/29/25 12:55 Dose: Infused Documented By: nilton Admin: 09/29/25 09:45 Dose: 999 mls/hr Documented By: CC Acetaminophen (Ofirmev) 1,000 mg in 100 mls @ 400 mls/hr IV NOW STA Stop: 09/29/25 09:52 Last Admin: 09/29/25 10:14 Dose: Not Given Documented By: CC Ceftriaxone Sodium (Rocephin) 2,000 mg in 50 mls @ 100 mls/hr IV NOW STA Stop: 09/29/25 12:43 Last Infusion: 09/29/25 12:55 Dose: Infused Documented By: nilton Admin: 09/29/25 12:25 Dose: 100 mls/hr Documented By: nilton Ioversol (Optiray 320 100ml) 93 ml IV ONCE ONE Stop: 09/29/25 10:47 Last Admin: 09/29/25 10:47 Dose: 93 ml Documented By: MEMO Medical Decision Making Laboratory Data Attestation: I reviewed the patient's lab results. 09/29/25 09:30 09/29/25 09:30 Lab Results 09/29/25 09/29/25 Range/Units 09:30 11:48 WBC 16.77 H (4.8-10.8) K/ul RBC 3.42 L (4.70-6.10) M/uL Hgb 11.1 L (14.0-18.0) g/dL Hct 32.4 L (42.0-52.0) % MCV 94.7 (80.0-100.0) fL MCH 32.5 (25.0-34.0) pg MCHC 34.3 (32.0-36.0) g/dL RDW Std Deviation 50.8 H (36.4-46.3) fL RDW Coeff of Millicent 14.6 H (11.5-14.5) % Plt Count 113 L (130-400) K/uL MPV 10.8 (9.4-12.4) fL Immature Gran % (Auto) 0.5 % Neut % (Auto) 76.3 % Lymph % (Auto) 18.4 % [place] % (Auto) 4.5 % Eos % (Auto) 0.1 % Baso % (Auto) 0.2 % Neut # (Auto) 12.80 H (1.40-6.50) K/uL Lymph # (Auto) 3.09 (1.20-3.40) K/uL [place] # (Auto) 0.75 H (0.11-0.59) K/uL Eos # (Auto) 0.01 (0.00-0.50) K/uL Baso # (Auto) 0.03 (0.00-0.20) K/uL Immature Gran # (Auto) 0.09 (0.01-0.20) K/uL PT 12.0 (9.0-12.0) Seconds INR 1.1 (0.9-1.1) APTT 34 H (21-31) Seconds PTT Ratio 1.3 Sodium 138 (136-145) mmol/L Potassium 4.0 (3.5-5.1) mmol/L Chloride 104 (98-107) mmol/L Carbon Dioxide 26 (21-32) mmol/L Anion Gap 8 (3-11) BUN 17 (6-23) mg/dl Creatinine 0.89 (0.6-1.4) mg/dl Est Cr Clr Drug Dosing 98.8 ml/min eGFR 103.75 BUN/Creatinine Ratio 19.1 (10-20) Glucose 119 H (70-99(Fasting)) mg/dl Lactate 0.8 (0.4-2.0) mmol/L Calcium 9.5 (8.6-10.3) mg/dl Magnesium 1.8 (1.7-2.4) mg/dl Total Bilirubin 0.5 (0.2-1.0) mg/dl Direct Bilirubin 0.1 (0-0.2) mg/dl AST 20 (13-39) U/L ALT 16 (7-52) U/L Alkaline Phosphatase 82 (34-104) U/L Total Protein 7.2 (6.0-8.3) gm/dl Albumin 4.3 (3.4-5.0) gm/dl Lipase 5 L (11-82) U/L Procalcitonin 0.23 (0-0.5) ng/ml Urine Color Dark Yellow Urine Appearance Cloudy A (Clear) Urine pH 6.0 (4.5-7.5) Ur Specific [place] 1.035 H (1.000-1.030) Urine Protein 2+ H (Negative) Urine Glucose (UA) Negative (Negative) Urine Ketones Trace H (Negative) Urine Blood 3+ H (Negative) Urine Nitrite Positive A (Negative) Urine Bilirubin Negative (Negative) Urine Urobilinogen Negative (Negative) Ur Leukocyte Esterase 2+ H (Negative) Urine WBC (Auto) >50 H (0-5) /hpf Urine RBC (Auto) >20 H (0-2) /hpf U Hyaline Cast (Auto) 0-2 (0-2) /lpf U Epithel Cells (Auto) 0-2 (0-2) /hpf Urine Bacteria (Auto) 2+ H (None Seen) Urine Mucus Present A (None Prsent) Urine Comment Adenovirus (PCR) Not Detected (NotDetected) B. pertussis DNA (PCR) Not Detected (NotDetected) B.parapertussis DNA PCR Not Detected (NotDetected) C. pneumoniae DNA (PCR) Not Detected (NotDetected) Coronavirus OC43 (PCR) Not Detected (NotDetected) Coronavirus HKU1 (PCR) Not Detected (NotDetected) Coronavirus 229E (PCR) Not Detected (NotDetected) SARS-CoV-2 (PCR) Not Detected (NotDetected) Coronavirus NL63 (PCR) Not Detected (NotDetected) Human Metapneumovir PCR Not Detected (NotDetected) Influenza Type A (PCR) Not Detected (NotDetected) Influenza Type B (PCR) Not Detected (NotDetected) M. pneumoniae (PCR) Not Detected (NotDetected) Parainfluenza 1 (PCR) Not Detected (NotDetected) Parainfluenza 2 (PCR) Not Detected (NotDetected) Parainfluenza 3 (PCR) Not Detected (NotDetected) Parainfluenza 4 (PCR) Not Detected (NotDetected) RSV (PCR) Not Detected (NotDetected) Entero/Rhino (PCR) Not Detected (NotDetected) Imaging Data Radiologist's Impression: Abdomen/Pelvis CT 09/29/25 09:38 EXAM: CT abd pelvis IV con only CLINICAL HISTORY: RLQ R flank pain fever TECHNIQUE: Contrast-enhanced CT of the abdomen and pelvis was performed, with the following protocol: axial images with, and reconstructed coronal and sagittal images. 93ml of 320 was administered. One of the following dose reduction techniques was utilized for this exam: Automated exposure control, adjustment of the mA and/or kV according to patient size, and use of iterative reconstruction. DLP: 1526 mGy-cm, CTDI: 27 mGy COMPARISON: CT 12/20/2023. FINDINGS: Abdomen: Liver: Normal in size and density. The left liver lobe is not visualized. Please correlate with the surgical history. No focal lesions, cysts, or masses were identified. Hepatic vasculature and biliary ducts are unremarkable. Gallbladder and Biliary System: The gallbladder is normal in size and shape. There is a tiny calculus/calcification in the gallbladder. No wall thickening, pericholecystic fluid was identified. The common bile duct is normal in caliber without dilation. Pancreas: Pancreatic head, body, and tail are visualized and appear normal in size and density. No pancreatic masses or calcifications were noted. The pancreatic duct is not dilated. Spleen: Normal in size, shape, and density. No splenic lesions or masses were identified. Appendix: The appendix is not well-appreciated. No right iliac fossa fat stranding or collection. Kidneys and Adrenal Glands: Both kidneys are normal in size, shape, and position. Cortical thickness is within normal limits. No hydronephrosis. Three nonobstructing right-sided renal calculi measuring up to 4 mm in the right kidney. A few bilateral tiny simple renal cortical cysts, the largest measuring 4.6 mm. Bosniak 1. Adrenal glands are unremarkable with no evidence of masses or hyperplasia. Pelvis: Urinary Bladder: A diffuse uniform wall thickening of the urinary bladder, up to 6.8 mm, Likely cystitis. No intraluminal lesions identified. Prostate: Normal in size and contour. No focal lesions or masses identified. Seminal Vesicles: Normal in size and appearance. No abnormalities noted. Rectum and Sigmoid Colon: Normal wall thickness and no evidence of mass. Peritoneal and Retroperitoneal Structures: No free fluid or abnormal fluid collections were identified within the abdomen or pelvis. No lymphadenopathy was noted. Small fat-containing right inguinal hernia. Bowel: Gaseous distention of the transverse colon. Status post ventral abdominal wall hernia repair with postoperative changes at the umbilicus. Partial right colectomy. Correlate with surgical history. A small hiatus hernia is present. The visualized bowel loops are normal in caliber. No evidence of bowel obstruction or wall thickening. Bones and Soft Tissues: Pelvic bones and soft tissues are unremarkable. Vertebral spondylosis. Mild thoracolumbar scoliosis. Bilateral pars break at L5. Lung bases: A small consolidation in the scanned right middle lung lobe, please correlate clinically to rule out pneumonia. Bilateral ground-glass densities in the scanned lower lobes. IMPRESSION: 1. No evidence of acute intra-abdominal pathology. 2. A small consolidation in the scanned right middle lung lobe, please correlate clinically to rule out pneumonia. New finding. 3. Status post ventral abdominal wall hernia repair with postoperative changes at the umbilicus. New finding. 4. Partial right colectomy. Correlate with surgical history. 5. Gaseous distention of the transverse colon. 6. Nonobstructing right-sided renal calculi measuring up to 4 mm in the right kidney. 7. A diffuse uniform wall thickening of the urinary bladder, up to 6.8 mm, Likely cystitis. Please correlate clinically. 8. Small fat-containing right inguinal hernia. 9. A small hiatus hernia is present. 10. No other interval changes present. Electronically signed by Sage Rivers 09-29-2025 12:35 PM [facility] Narrative 0925: The patient was evaluated in room B7. A complete history and physical exam was performed Cardiac monitoring: An order was placed for continuous cardiac monitoring. The monitor shows a rate of 100 with sinus rhythm interpreted by me 1245: Vital signs stable. Labs show leukocytosis of 16. Urinalysis concerning for UTI. Patient treated with Rocephin. CT abdomen pelvis shows a small consolidation right middle lobe. Azithromycin added to the patient's antibiotic regimen. Given the patient's developmental delay and living in a longterm I discussed with the lawn caretaker who is at bedside we both felt would be best for the patient be admitted for IV antibiotics before being sent to longterm. Patient will be evaluated for admission by the [facility] team. Impression & Plan Acute UTI, Pneumonia Discharge Plan Visit Data Chief Complaint: Flank Pain Stated Complaint: KIDNEY STONE ED Provider: Jairo Church Discharge Problem: Acute UTI, Pneumonia Patient Disposition: Admitted As Inpatient Condition: Fair Discharge Instructions Interventions: ED Discharge Assessment Last Done: 09/29/25 15:06 Discharge Problem: Pneumonia Qualifiers: Pneumonia type: due to unspecified organism Laterality: right Lung location: u nspecified part of lung Qualified Code(s): J18.9 - Pneumonia, unspecified organism
[2025-09-29] MEDS: SODIUM CHLORIDE 0.9% 1,000 ML IV ONE ×2 (09:45→17:12)
[2025-09-29 09:48] LABS: Hematocrit (blood only) 32.4 % (42.0-52.0); Hemoglobin 11.1 g/dL (14.0-18.0); Immature Granulocytes # (auto) 0.09 K/uL (0.01-0.20); Immature Granulocytes % (auto) 0.5 %; Mean Corpuscular Hemoglobin 32.5 pg (25.0-34.0); Mean Corpuscular Volume 94.7 fL (80.0-100.0); Platelet Count 113 K/uL (130-400); RDW Standard Deviation 50.8 fL (36.4-46.3); Red Blood Count 3.42 M/uL (4.70-6.10); White Blood Count 16.77 K/ul (4.8-10.8)
[2025-09-29 10:04] LABS: Alanine Aminotransferase 16.0 U/L (7-52); Albumin Level 4.3 gm/dl (3.4-5.0); Alkaline Phosphatase 82.0 U/L (34-104); Anion Gap 8.0 (3-11); Bilirubin,Total 0.5 mg/dl (0.2-1.0); Blood Urea Nitrogen 17.0 mg/dl (6-23); Calcium 9.5 mg/dl (8.6-10.3); Carbon Dioxide 26.0 mmol/L (21-32); Chloride 104.0 mmol/L (98-107); Creatinine Clr Calc Pharmacy 98.8 ml/min; Glucose 119.0 mg/dl (70-99(Fasting)); Lipase 5.0 U/L (11-82); Potassium 4.0 mmol/L (3.5-5.1); Sodium 138.0 mmol/L (136-145); Total Protein 7.2 gm/dl (6.0-8.3)
[2025-09-29 10:12] LABS: Magnesium 1.8 mg/dl (1.7-2.4)
[2025-09-29] MEDS: ACETAMINOPHEN 1,000 MG/100 ML VIAL IV STA (10:14)
[2025-09-29 10:33] LABS: Chlamydia pneumoniae PCR Not Detected (NotDetected); Coronavirus 229E PCR Not Detected (NotDetected); Coronavirus CoV-2 (COVID19)PCR Not Detected (NotDetected); Coronavirus HKU1 PCR Not Detected (NotDetected); Coronavirus NL63 PCR Not Detected (NotDetected); Coronavirus OC43PCR Not Detected (NotDetected); Human Metapneumovirus PCR Not Detected (NotDetected); Parainfluenza Virus 1 PCR Not Detected (NotDetected); Parainfluenza Virus 2 PCR Not Detected (NotDetected); Parainfluenza Virus 3 PCR Not Detected (NotDetected); Parainfluenza Virus 4 PCR Not Detected (NotDetected); Respiratory Syncytial VirusPCR Not Detected (NotDetected); Rhinovirus/Enterovirus PCR Not Detected (NotDetected)
[2025-09-29 10:36] LABS: INR 1.1 (0.9-1.1); Partial Thromboplastin Time 34 Seconds (21-31); Prothrombin Time 12.0 Seconds (9.0-12.0)
[2025-09-29] MEDS: OPTIRAY 320 100ml IV ONE (10:47)
[2025-09-29 12:11] LABS: Appearance Urine Cloudy (Clear); Bacteria Urine Automated 2+ (None Seen); Epithelial Cell Urine Auto 0-2 /hpf (0-2); Glucose Urine UA Negative (Negative); RBC Urine Automated >20 /hpf (0-2); WBC Urine Automated >50 /hpf (0-5)
[2025-09-29 12:12] LABS: Cast Urine Automated 0-2 /lpf (0-2)
[2025-09-29] MEDS: cefTRIAXone SODIUM 2,000 MG/50 ML BAG IV STA (12:25)
--- NOTE | 2025-09-29 12:36 | CT Scan Report ---
EXAM: CT abd pelvis IV con only CLINICAL HISTORY: RLQ R flank pain fever TECHNIQUE: Contrast-enhanced CT of the abdomen and pelvis was performed, with the following protocol: axial images with, and reconstructed coronal and sagittal images. 93ml of 320 was administered. One of the following dose reduction techniques was utilized for this exam: Automated exposure control, adjustment of the mA and/or kV according to patient size, and use of iterative reconstruction. DLP: 1526 mGy-cm, CTDI: 27 mGy COMPARISON: CT 12/20/2023. FINDINGS: Abdomen: Liver: Normal in size and density. The left liver lobe is not visualized. Please correlate with the surgical history. No focal lesions, cysts, or masses were identified. Hepatic vasculature and biliary ducts are unremarkable. Gallbladder and Biliary System: The gallbladder is normal in size and shape. There is a tiny calculus/calcification in the gallbladder. No wall thickening, pericholecystic fluid was identified. The common bile duct is normal in caliber without dilation. Pancreas: Pancreatic head, body, and tail are visualized and appear normal in size and density. No pancreatic masses or calcifications were noted. The pancreatic duct is not dilated. Spleen: Normal in size, shape, and density. No splenic lesions or masses were identified. Appendix: The appendix is not well-appreciated. No right iliac fossa fat stranding or collection. Kidneys and Adrenal Glands: Both kidneys are normal in size, shape, and position. Cortical thickness is within normal limits. No hydronephrosis. Three nonobstructing right-sided renal calculi measuring up to 4 mm in the right kidney. A few bilateral tiny simple renal cortical cysts, the largest measuring 4.6 mm. Bosniak 1. Adrenal glands are unremarkable with no evidence of masses or hyperplasia. Pelvis: Urinary Bladder: A diffuse uniform wall thickening of the urinary bladder, up to 6.8 mm, Likely cystitis. No intraluminal lesions identified. Prostate: Normal in size and contour. No focal lesions or masses identified. Seminal Vesicles: Normal in size and appearance. No abnormalities noted. Rectum and Sigmoid Colon: Normal wall thickness and no evidence of mass. Peritoneal and Retroperitoneal Structures: No free fluid or abnormal fluid collections were identified within the abdomen or pelvis. No lymphadenopathy was noted. Small fat-containing right inguinal hernia. Bowel: Gaseous distention of the transverse colon. Status post ventral abdominal wall hernia repair with postoperative changes at the umbilicus. Partial right colectomy. Correlate with surgical history. A small hiatus hernia is present. The visualized bowel loops are normal in caliber. No evidence of bowel obstruction or wall thickening. Bones and Soft Tissues: Pelvic bones and soft tissues are unremarkable. Vertebral spondylosis. Mild thoracolumbar scoliosis. Bilateral pars break at L5. Lung bases: A small consolidation in the scanned right middle lung lobe, please correlate clinically to rule out pneumonia. Bilateral ground-glass densities in the scanned lower lobes. IMPRESSION: 1. No evidence of acute intra-abdominal pathology. 2. A small consolidation in the scanned right middle lung lobe, please correlate clinically to rule out pneumonia. New finding. 3. Status post ventral abdominal wall hernia repair with postoperative changes at the umbilicus. New finding. 4. Partial right colectomy. Correlate with surgical history. 5. Gaseous distention of the transverse colon. 6. Nonobstructing right-sided renal calculi measuring up to 4 mm in the right kidney. 7. A diffuse uniform wall thickening of the urinary bladder, up to 6.8 mm, Likely cystitis. Please correlate clinically. 8. Small fat-containing right inguinal hernia. 9. A small hiatus hernia is present. 10. No other interval changes present. Electronically signed by Sage Rivers 09-29-2025 12:35 PM
[2025-09-29] MEDS: AZITHROMYCIN 250 MG TAB PO ONE (12:53)
[2025-09-29] MEDS ORDERED: ACETAMINOPHEN 325 MG TAB PO PRN (13:39)
--- NOTE | 2025-09-29 16:27 | History & Physical Report ---
Date of Service September 29, 2025 Assessment & Plan (1) Cystitis: Plan: As above in the History of Present Illness. (2) Acute dehydration: Plan: As above in the History of Present Illness. Admission and Anticipated Discharge Date Admission Date: September 29, 2025 History of Present Illness Chief Complaint: "Nose runny. Right side hurt. Feel hot." Primary Care Provider: Joaquin Odonnell DO 50 years old male with PMH of FULL CODE @ 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 Christina Stephens ( ) of the past 10.5 years, of rhinorrhea, dry cough/clearing of throat, right flank pain, and tactile temperature @ [facility] on 09/29/2025, whereupon his full-time administrative assistant, Ms. Christina Stephens ( ) of the past 10.5 years, immediately called 911 and an ambulance arrived to [facility], and brought the patient to [facility] ER for further evaluation of his complaints of rhinorrhea, dry cough/clearing of throat, right flank pain, and tactile temperature @ [facility] on 09/29/2025. In [facility] ER bed #B7, patient was afebrile @ 37.9 degrees Celsius, HR 90, RR 18, O2 sat 94% on room air, and BP 121/69 (09/29/2025, 9:30am). Exam was noted for overt rhinorrhea, but no pharyngeal erythema, edema, or exudative discharge. Chest was clear and non-tender to palpation, as was palpation of the bilateral flank(s). Labs in [facility] ER bed #B7 included: U/A: cloudy dark yellow, LE 2+, nitrite+, WBC > 50, RBC > 20, epithelial cells 0-2, bacteria 2+ (09/29/2025, 11:48am). Urine culture (09/29/2025, 11:48am): Blood culture #1 (09/29/2025, 9:30am): Blood culture #2 (09/29/2025, 10:08am): WBC 16.77, N76 L18 M5, Hb 11.1, MCV 94.7, MCHC 34.3, platelet 113 (09/29/2025, 9:30am). [employer] respiratory pathogen PCR panel test negative (09/29/2025, 9:30am). Na 138, K 4.0, CO2 26, BUN 17, creatinine 0.89, glucose 119, Ca 9.5, Mg 1.8, AST 20, ALT 16, ALK PHOS 82, total bilirubin 0.5 (09/29/2025, 9:30am). Lactic acid #1 0.8 mmol/L (09/29/2025, 9:30am). Lactic acid #2 1.4 mmol/L (09/29/2025, 3:51pm). Procalcitonin #1 0.23 ng/mL (09/29/2025, 9:30am). Additional testing in [facility] ER bed #B7 included: CT abd/pelvis with IV contrast (09/29/2025, 9:38am): 1. No evidence of acute intra-abdominal pathology. 2. Small consolidation in the scanned right middle lung lobe, please correlate clinically to rule out pneumonia. New finding. 3. Status post ventral abdominal wall hernia repair with postoperative changes at the umbilicus. New finding. 4. Partial right colectomy. Correlate with surgical history. 5. Gaseous distention of the transverse colon. 6. Nonobstructing right-sided renal calculi measuring up to 4 mm in the right kidney. 7. Diffuse uniform wall thickening of the urinary bladder, up to 6.8 mm, Likely cystitis. Please correlate clinically. 8. Small fat-containing right inguinal hernia. 9. Small hiatus hernia is present. Patient was subsequently admitted to the inpatient hospitalist service @ [facility] on 09/29/2025 with the following diagnoses: 1. Acute complicated UTI / cystitis in male patient, R/O gram negative gail- associated bacteremia. 2. Acute dehydration. 3. Incidental finding of "Small consolidation in the scanned right middle lung lobe, please correlate clinically to rule out pneumonia." (as reported on 09/29/2025, 9:38am CT abd/pelvis with IV contrast). To address #1, patient was started on ceftriaxone 2g IV x 1 dose (09/29/2025, 12:25pm) in [facility] ER bed #B7. I will check vitals, genito-urinary exam, WBC w/diff, lactic acid, procalcitonin, urine culture (09/29/2025, 11:48am), blood culture #1 (09/29/2025, 9:30am), and blood culture #2 (09/29/2025, 10:08am) in the 09/30/2025 am. To address #2, patient was started on 1 liter of 0.9% NS @ 999 mL/hr (09/29/2025, 9:45am) in [facility] ER bed #B7, followed by 1 liter of 0.9% NS @ 82 mL/hr (09/29/2025, 4:48pm), based on a delivery rate of 1 mL of 0.9% NS per kg of body weight per hour ,and a body weight of 82.1 kg. I will check repeat fluid-volume status in the 09/30/2025 am. To address #3, patient was started on azithromycin 500mg PO x 1 dose (09/29/2025, 12:53pm) in [facility] ER bed #B7 to provide empiric coverage against atypical organisms such as Chlamydophila pneumoniae and Mycoplasma pneumoniae, which are associated with acute community acquired pneumonia. However, [employer] respiratory pathogen PCR panel test was negative for Chlamydophila pneumoniae and Mycoplasma pneumoniae (09/29/2025, 9:30am). Moreover, both lactic acid #1 0.8 mmol/L (09/29/2025, 9:30am) and procalcitonin #1 0.23 ng/mL (09/29/2025, 9:30am) were negative/normal. Hence, this patient does not suffer from acute bacterial community acquired pneumonia, and does not warrant continued empiric azithromycin. Allergies Allergy/AdvReac Type Severity Reaction Status Date / Time brompheniramine AdvReac Unknown interferes Verified 09/26/25 13:16 with phenobarbitol phenylpropanolamine AdvReac Unknown interferes Verified 09/26/25 13:16 with phenobarbitol Home Medications Medication Instructions Recorded Confirmed Type ammonium lactate 12 % topical cream 1 appln topical BID 05/29/20 09/26/25 History fluoride (sodium) 1.1 % dental 1 applic dental BID 01/26/24 09/26/25 History paste acetic acid 2 % ear solution 5 drp otic (ear) QAM #15 mL 08/31/24 09/26/25 Rx acetaminophen 500 mg tablet 500 mg PO Q6H PRN Pain/Fever 02/13/25 09/26/25 History carbamide peroxide 6.5 % ear drops 5 drp otic (ear) WK 02/13/25 09/26/25 History (Clinere Ear Wax Removal) linaclotide 72 mcg capsule 72 mcg PO QAM #31 caps 02/13/25 09/26/25 Rx (Linzess) polyethylene glycol 3350 17 17 g PO BID PRN Constipation 02/13/25 09/26/25 History gram/dose oral powder ibuprofen 200 mg tablet (Motrin IB) 200 mg PO .COMPLEX PRN pain 02/15/25 09/26/25 History docusate sodium 100 mg capsule 100 mg PO BID #60 caps 03/16/25 09/26/25 Rx (Dulcolax Stool Softener (docusate)) famotidine 40 mg tablet 40 mg PO QAM #30 tabs 03/16/25 09/26/25 Rx levocetirizine 5 mg tablet 5 mg PO HS #90 tabs 03/16/25 09/26/25 Rx ergocalciferol (vitamin D2) 1,250 1,250 mcg PO Q7D #4 caps 04/16/25 09/26/25 Rx mcg (50,000 unit) capsule phenobarbital 60 mg tablet 120 mg (2 x 60 mg) PO QPM #60 tabs 05/23/25 09/26/25 Rx fluticasone propionate 50 2 spray intranasal QAM #16 grams 08/03/25 09/26/25 Rx mcg/actuation nasal spray,suspension (Flonase Allergy Relief) vitamin B complex-folic acid 0.4 1 tab PO DAILY #30 tabs 08/14/25 09/26/25 Rx mg tablet (B Complex 1 (with folic acid)) cholecalciferol (vitamin D3) 50 50 mcg PO DAILY #30 caps 09/11/25 09/26/25 Rx mcg (2,000 unit) capsule guaifenesin 600 mg tablet, 600 mg PO Q12H PRN congestion #20 09/25/25 09/26/25 Rx extended release 12 hr (Mucinex) tabs desmopressin 0.2 mg tablet 0.2 mg PO HS #90 tabs 09/26/25 09/26/25 Rx Past Med/Surg History Problem List (Updated 09/29/25 @ 16:58 by Adam Nelson MD, PhD) Acute dehydration Cystitis Encounter for preoperative assessment (Acute) Nocturnal enuresis (Chronic) Excessive cerumen in ear canal Vitamin D deficiency Left humeral fracture (Acute) Pneumonia Incontinence (Chronic) Cerumen impaction Nephrolithiasis (Chronic) Recurrent incisional hernia Colonic mass Constipation Fecal retention on CT scan Will order Dulcolax suppository now and continue home PO Stool softener this evening. Patient may need further bowel regimen postoperatively including possible enema. Obstipation Ventral incisional hernia Hernia Anemia Anxiety Mental retardation Ventral hernia with bowel obstruction Seizure disorder Obesity (BMI 30.0-34.9) Mass of hepatic flexure of colon Foot callus Dermatitis, seborrheic [place] or callus Neal hemangioma Cardiomegaly Allergic rhinitis Acquired intellectual disability (Acute) Dysfunction of eustachian tube Shingles Conductive hearing loss in right ear Congestion of nasal sinus Mixed conductive and sensorineural hearing loss of left ear with restricted hearing of right ear Eczema Medical History Urge incontinence of urine Fall History of fecal impaction History of intestinal obstruction Constipation GERD (gastroesophageal reflux disease) Seizure disorder Surgical History Surgical history unknown H/O myringotomy Family History (Updated 09/29/25 @ 16:49 by Adam Nelson MD, PhD) Father , at 73 years of age from complications following heart valve replacement, not otherwise specified. Heart disease Mother No problems noted. Other Family history non-contributory No significant family history Denies family history of Malignant hyperthermia Ovarian cancer Prostate cancer Myocardial infarction Adverse anesthesia outcome Breast cancer Bleeding disorder Colorectal cancer Social History (Updated 09/29/25 @ 16:51 by Adam Nelson MD, PhD) Smoking Status: Never smoker Second Hand Exposure: No; Do You Dip or Chew Tobacco: No; Hx Alcohol Use: No Hx Substance Use: No Preferred Language: Arabic Communication Ability: Effective Communication Ability Comment: Patient speaks articulately/fluently, albeit slowly. Visual Impairment: No Limitations Hearing Ability: Hard of Hearing Supervisor Fusing Room Required: No Beliefs That Will Affect Care: None marital status: Single marital status details: Never , , or . No children living or . Current Living Situation: Personal Care Facility Current Living Situation Comment: Pt lives at [facility] current occupational status: employed and unemployed current occupation: Works part-time @ [employer] as [employer], for the past 8 years. How many Children do You have: 0 other: Ambulates without assistance from cane, walker, or wheelchair. Feels Safe at Home: Yes Childhood Exposure to Second-Hand Smoke: No Diet: other Diet Comment: 1800 calorie caffeine: No during the past year weight has: remained stable Dental Care, Regularly: Yes Physical Activity Frequency: Daily Seatbelt Use: always Sunscreen Use: Yes Assistive Devices: None Review of Systems Constitutional: Positive for rhinorrhea, dry cough/clearing of throat, tactile temps @ [facility] on admission date 09/29/2025. Negative for antecedent/coincident fevers, chills, diaphoresis, wheeze, sore throat, hemoptysis, chest pains, palpitations, pleurisy, nausea, vomiting, diarrhea, abdominal pain, pelvic pain, hematemesis, hematochezia, melena, hematuria, dysuria, frequency, urgency, headaches, dizziness, lightheadedness, visual changes, hearing changes, weakness, falls, syncope, trauma, travel history, sick contacts, or food/drug ingestions novel or new. All other review of systems are reported as negative by the patient on admission date 09/29/2025. Physical Exam Constitutional: General: Comfortable, coherent, cooperative. Wide awake and alert. Not confused, lethargic, or obtunded. Patient speaks in complete, fluent, and articulate 3-6 word sentences--no paragraphs--without pause, interruption, cough, or wheeze. HEENT: Normocephalic, atraumatic. PERRL. EOMI. No nystagmus, gaze paresis, anisocoria, miosis, mydriasis, hyphema, scleral injection, conjunctivitis, or pterygium. No otorrhea. Overt rhinorrhea. No pharyngeal erythema, edema, ulceration, or discharge. Neck: Supple, no stridor, bruit, or goiter. Jugular venous pressure is estimated at 3 cm above the sternal angle of Khris, which is 5 cm above the level of the right atrium; hence, jugular venous pressure is normal at 8 cm H2O on admission date 09/29/2025. Lymph: No pre-auricular, post-auricular, supraclavicular, infraclavicular, axil david, epitrochlear, or inguinal adenopathy. Chest: Symmetric rise and fall with respirations. Non-tender to palpation. Heart: Regular rate and rhythm. S1 and S2 noted. No S3 or S4 summation gallop noted. Grade II/ early systolic murmur @ LLSB without radiation to the carotids, axilla, or back, and which remains invariant in regards to the respiratory cycle. Lungs: Clear to auscultation and percussion. No audible expiratory wheeze, egophony, pectoriloquy, increase in tactile fremitus, or flatness/dullness to percussion at the bases. Abdomen: Soft, non-tender, non-distended. No rebound, guarding, Kumari's sign, or organomegaly. Bowel sounds auscultated in all 4 quadrants. Pelvis: Soft, non-tender, non-distended. Back: No flank tenderness. Extremities: No clubbing, cyanosis, or edema. 2+ pedal pulses bilaterally. Skin: No decubitus ulcer, exanthem, or enanthem. Neurology: Alert and oriented in regards to person and situation, but not in regards to either place or time. DTR+. 5/5 motor strength in all 4 extremities, both proximally and distally. No myoclonus, tremors, or tics. Urology: No bradley catheter. No diaper. No urethral discharge. Psych: Smiles appropriately. No flat affect. Results & Data Results & Data Vital Signs (Past 12 Hours) Vital Signs Temp Pulse Pulse Resp BP BP Pulse Ox 09/29/25 15:00 71 18 91 09/29/25 14:51 75 23 100 09/29/25 14:42 76 18 95 09/29/25 14:30 77 27 H 95 09/29/25 14:21 73 22 94 09/29/25 14:12 80 15 94 09/29/25 14:00 78 13 96 09/29/25 13:51 69 20 95 09/29/25 13:42 71 15 95 09/29/25 13:33 71 09/29/25 13:32 99/65 L 09/29/25 13:32 99/65 L 09/29/25 13:32 99/65 L 09/29/25 13:32 99/65 L 09/29/25 13:32 99/65 L 09/29/25 13:30 97/69 L 09/29/25 13:30 73 14 95 09/29/25 11:03 81 21 92 09/29/25 11:03 114/73 09/29/25 11:03 114/73 09/29/25 11:03 114/73 09/29/25 11:03 114/73 09/29/25 11:03 114/73 09/29/25 11:03 36.9 C 78 16 114/73 92 09/29/25 11:00 76 22 92 09/29/25 10:54 81 16 93 09/29/25 10:30 76 15 95 09/29/25 10:21 79 20 95 09/29/25 10:12 79 17 95 09/29/25 10:00 92 H 19 95 09/29/25 09:51 86 15 94 09/29/25 09:42 84 17 93 09/29/25 09:30 90 19 94 09/29/25 09:30 37.9 C H 90 18 121/69 94 09/29/25 09:29 90 09/29/25 09:27 90 16 94 09/29/25 09:26 121/69 09/29/25 09:26 121/69 09/29/25 09:26 121/69 09/29/25 09:26 121/69 O2 Del Method 09/29/25 15:00 09/29/25 14:51 09/29/25 14:42 09/29/25 14:30 09/29/25 14:21 09/29/25 14:12 09/29/25 14:00 09/29/25 13:51 09/29/25 13:42 09/29/25 13:33 09/29/25 13:32 09/29/25 13:32 09/29/25 13:32 09/29/25 13:32 09/29/25 13:32 09/29/25 13:30 09/29/25 13:30 09/29/25 11:03 09/29/25 11:03 09/29/25 11:03 09/29/25 11:03 09/29/25 11:03 09/29/25 11:03 09/29/25 11:03 Room Air 09/29/25 11:00 09/29/25 10:54 09/29/25 10:30 09/29/25 10:21 09/29/25 10:12 09/29/25 10:00 09/29/25 09:51 09/29/25 09:42 09/29/25 09:30 09/29/25 09:30 Room Air 09/29/25 09:29 09/29/25 09:27 09/29/25 09:26 09/29/25 09:26 09/29/25 09:26 09/29/25 09:26 Laboratory Results As above in the History of Present Illness. Diagnostic Findings As above in the History of Present Illness. Medications Administered As above in the History of Present Illness. Code Status & VTE Plan VTE Prophylaxis Plan VTE Prophylaxis will be ordered: Yes PG Care Time/CCT Total # of Minutes Spent Total Time Spent with Patient: Total time spent is greater than 50% in coordination of care (as documented) at patient's floor/unit and/or counseling patient: Coding Level of Care Code 34209 INT INP/OBS CARE 2/55MIN Diagnoses Cystitis N30.90 Acute dehydration E86.0
[2025-09-29] MEDS: FAMOTIDINE 40 MG TABLET PO ONE (17:12)
[2025-09-29 18:32] LABS: Chlamydia pneumoniae PCR Not Detected (NotDetected); Coronavirus 229E PCR Not Detected (NotDetected); Coronavirus CoV-2 (COVID19)PCR Not Detected (NotDetected); Coronavirus HKU1 PCR Not Detected (NotDetected); Coronavirus NL63 PCR Not Detected (NotDetected); Coronavirus OC43PCR Not Detected (NotDetected); Human Metapneumovirus PCR Not Detected (NotDetected); Parainfluenza Virus 1 PCR Not Detected (NotDetected); Parainfluenza Virus 2 PCR Not Detected (NotDetected); Parainfluenza Virus 3 PCR Not Detected (NotDetected); Parainfluenza Virus 4 PCR Not Detected (NotDetected); Respiratory Syncytial VirusPCR Not Detected (NotDetected); Rhinovirus/Enterovirus PCR Not Detected (NotDetected)
[2025-09-30 06:33] LABS: Hematocrit (blood only) 28.1 % (42.0-52.0); Hemoglobin 9.3 g/dL (14.0-18.0); Immature Granulocytes # (auto) 0.10 K/uL (0.01-0.20); Immature Granulocytes % (auto) 0.6 %; Mean Corpuscular Hemoglobin 31.8 pg (25.0-34.0); Mean Corpuscular Volume 96.2 fL (80.0-100.0); Platelet Count 99 K/uL (130-400); RDW Standard Deviation 51.0 fL (36.4-46.3); Red Blood Count 2.92 M/uL (4.70-6.10); White Blood Count 15.68 K/ul (4.8-10.8)
[2025-09-30 06:56] LABS: Anion Gap 8.0 (3-11); Blood Urea Nitrogen 15.0 mg/dl (6-23); Calcium 8.2 mg/dl (8.6-10.3); Carbon Dioxide 22.0 mmol/L (21-32); Chloride 109.0 mmol/L (98-107); Creatinine Clr Calc Pharmacy 113.1 ml/min; Glucose 101.0 mg/dl (70-99(Fasting)); Potassium 3.5 mmol/L (3.5-5.1); Sodium 139.0 mmol/L (136-145)
[2025-09-30] MEDS: FAMOTIDINE 40 MG TABLET PO SCH (08:33)
[2025-09-30] MEDS: cefTRIAXone SODIUM 2,000 MG/50 ML BAG IV SCH (12:02)
--- NOTE | 2025-09-30 18:22 | Hospitalist Progress Note ---
Date of Service September 30, 2025 Assessment & Plan (1) Acute UTI: Plan: 1. Acute complicated E. coli UTI / cystitis in male patient, R/O gram negative gail-associated bacteremia. To address #1, patient was started on ceftriaxone 2g IV x 1 dose (09/29/2025, 12:25pm) in [facility] ER bed #B7, followed by ceftriaxone 2g IV daily (day #1/6 on 09/30/2025, 12:02pm) to treat acute E. coli UTI (as noted on 09/29/2025, 11:48am urine culture). I will check vitals, genito-urinary exam (with patient voiding urine spontaneously into his diaper, NO bradley on 09/30/2025), WBC w/diff, lactic acid, procalcitonin, urine culture (09/29/2025, 11:48am), blood culture #1 (09/29/2025, 9:30am), and blood culture #2 (09/29/2025, 10:08am) in the 10/01/2025 am. (2) Acute dehydration: Plan: 2. Acute dehydration. To address #2, patient received 1 liter of 0.9% NS @ 999 mL/hr (09/29/2025, 9:45am) in [facility] ER bed #B7, followed by 1 liter of 0.9% NS @ 82 mL/hr (09/29/2025, 4:48pm), based on a delivery rate of 1 mL of 0.9% NS per kg of body weight per hour ,and a body weight of 82.1 kg in [facility] Med-Surg bed #W354-2. Patient no longer requires IV fluid rehydration therapy, and tolerates a heart healthy diet very well on 09/29/2025 lunch through 09/30/2025 dinner. I will check repeat fluid-volume status in the 10/01/2025 am. (3) Pneumonia: Plan: 3. Incidental finding of "Small consolidation in the scanned right middle lung lobe, please correlate clinically to rule out pneumonia." (as reported on 09/29/2025, 9:38am CT abd/pelvis with IV contrast). To address #3, patient received azithromycin 500mg PO x 1 dose (09/29/2025, 12:53pm) in [facility] ER bed #B7 to provide empiric coverage against atypical organisms such as Chlamydophila pneumoniae and Mycoplasma pneumoniae, which are associated with acute community acquired pneumonia. However, [facility] respiratory pathogen PCR panel test was negative for Chlamydophila pneumoniae and Mycoplasma pneumoniae (09/29/2025, 9:30am). Moreover, both lactic acid #1 0.8 mmol/L (09/29/2025, 9:30am) and procalcitonin #1 0.23 ng/mL (09/29/2025, 9:30am) were negative/normal. Hence, this patient does not suffer from acute bacterial community acquired pneumonia, and does not warrant continued empiric azithromycin. Admission and Anticipated Discharge Date Admission Date: September 29, 2025 Review of Systems Constitutional: Positive for rhinorrhea, dry cough/clearing of throat, tactile temps @ [employer] [facility] on admission date 09/29/2025. Negative for rhinorrhea, dry cough/clearing of throat, tactile temps @ [facility] on post-admission date 09/30/2025. Negative for antecedent/coincident fevers, chills, diaphoresis, wheeze, sore throat, hemoptysis, chest pains, palpitations, pleurisy, nausea, vomiting, diarrhea, abdominal pain, pelvic pain, hematemesis, hematochezia, melena, hematuria, dysuria, frequency, urgency, headaches, dizziness, lightheadedness, visual changes, hearing changes, weakness, falls, syncope, trauma, travel history, sick contacts, or food/drug ingestions novel or new. All other review of systems are reported as negative by the patient on 09/30/2025. Physical Exam Constitutional: General: Comfortable, coherent, cooperative. Wide awake and alert. Not confused, lethargic, or obtunded. 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 HEENT: Normocephalic, atraumatic. PERRL. EOMI. No nystagmus, gaze paresis, anisocoria, miosis, mydriasis, hyphema, scleral injection, conjunctivitis, or pterygium. No otorrhea. No rhinorrhea. No pharyngeal erythema, edema, ulceration, or discharge. Neck: Supple, no stridor, bruit, or goiter. Jugular venous pressure is estimated at 3 cm above the sternal angle of Khris, which is 5 cm above the level of the right atrium; hence, jugular venous pressure is normal at 8 cm H2O on admission date 09/29/2025. Lymph: No pre-auricular, post-auricular, supraclavicular, infraclavicular, axillary, epitrochlear, or inguinal adenopathy. Chest: Symmetric rise and fall with respirations. Non-tender to palpation. Heart: Regular rate and rhythm. S1 and S2 noted. No S3 or S4 summation gallop noted. Grade II/ early systolic murmur @ [facility] without radiation to the carotids, axilla, or back, and which remains invariant in regards to the respiratory cycle. Lungs: Clear to auscultation and percussion. No audible expiratory wheeze, egophony, pectoriloquy, increase in tactile fremitus, or flatness/dullness to percussion at the bases. Abdomen: Soft, non-tender, non-distended. No rebound, guarding, Kumari's sign, or organomegaly. Bowel sounds auscultated in all 4 quadrants. Pelvis: Soft, non-tender, non-distended. Back: No flank tenderness. Extremities: No clubbing, cyanosis, or edema. 2+ pedal pulses bilaterally. Skin: No decubitus ulcer, exanthem, or enanthem. Neurology: Alert and oriented in regards to person and situation, but not in regards to either place or time. DTR+. 5/5 motor strength in all 4 extremities, both proximally and distally. No myoclonus, tremors, or tics. Urology: No bradley catheter. No diaper. No urethral discharge. Psych: Smiles appropriately. No flat affect. Results & Data Results & Data Vital Signs (Past 12 Hours) Vital Signs Temp Pulse Resp BP Pulse Ox O2 Del Method 09/30/25 14:20 37.2 C 84 16 129/73 94 Room Air 09/30/25 07:08 36.7 C 88 16 91/56 L 92 Room Air Laboratory Results U/A: cloudy dark yellow, LE 2+, nitrite+, WBC > 50, RBC > 20, epithelial cells 0-2, bacteria 2+ (09/29/2025, 11:48am). Urine culture (09/29/2025, 11:48am): > 100,000 cfu/mL E. coli Blood culture #1 (09/29/2025, 9:30am): Blood culture #2 (09/29/2025, 10:08am): WBC 16.77, N76 L18 M5, Hb 11.1, MCV 94.7, MCHC 34.3, platelet 113 (09/29/2025, 9:30am). WBC 15.68, N74 L22 M3, Hb 9.3, MCV 96.2, MCHC 33.1, platelet 99 (09/30/2025, 6:13am). [facility] respiratory pathogen PCR panel test negative (09/29/2025, 9:30am). Na 138, K 4.0, CO2 26, BUN 17, creatinine 0.89, glucose 119, Ca 9.5, Mg 1.8, AST 20, ALT 16, ALK PHOS 82, total bilirubin 0.5 (09/29/2025, 9:30am). Na 135, K 3.5, CO2 22, BUN 15, creatinine 0.75, glucose 101, Ca 8.2 (09/30/2025, 6:13am). Lactic acid #1 0.8 mmol/L (09/29/2025, 9:30am). Lactic acid #2 1.4 mmol/L (09/29/2025, 3:51pm). Lactic acid #3 0.6 mmol/L (09/30/2025, 6:13am). Procalcitonin #1 0.23 ng/mL (09/29/2025, 9:30am). Procalcitonin #2 0.24 ng/mL (09/30/2025, 6:13am). Diagnostic Findings CT abd/pelvis with IV contrast (09/29/2025, 9:38am): 1. No evidence of acute intra-abdominal pathology. 2. Small consolidation in the scanned right middle lung lobe, please correlate clinically to rule out pneumonia. New finding. 3. Status post ventral abdominal wall hernia repair with postoperative changes at the umbilicus. New finding. 4. Partial right colectomy. Correlate with surgical history. 5. Gaseous distention of the transverse colon. 6. Nonobstructing right-sided renal calculi measuring up to 4 mm in the right kidney. 7. Diffuse uniform wall thickening of the urinary bladder, up to 6.8 mm, Likely cystitis. Please correlate clinically. 8. Small fat-containing right inguinal hernia. 9. Small hiatus hernia is present. PG Care Time/CCT Total # of Minutes Spent Total Time Spent with Patient: Total time spent is greater than 50% in coordination of care (as documented) at patient's floor/unit and/or counseling patient: Coding Level of Care Code 35294 SUB INP/OBS CARE 2/35MIN Diagnoses Acute UTI N39.0 Acute dehydration E86.0 Pneumonia J18.9 Laterality: right Lung location: unspecified part of lung Pneumonia type: due to unspecified organism (3) Pneumonia Laterality: right Lung location: unspecified part of lung Pneumonia type: due to unspecified organism Qualified Code(s): J18.9 - Pneumonia, unspecified organism
[2025-10-01 07:23] LABS: Hematocrit (blood only) 28.7 % (42.0-52.0); Hemoglobin 9.7 g/dL (14.0-18.0); Immature Granulocytes # (auto) 0.06 K/uL (0.01-0.20); Immature Granulocytes % (auto) 0.5 %; Mean Corpuscular Hemoglobin 32.1 pg (25.0-34.0); Mean Corpuscular Volume 95.0 fL (80.0-100.0); Platelet Count 107 K/uL (130-400); RDW Standard Deviation 50.4 fL (36.4-46.3); Red Blood Count 3.02 M/uL (4.70-6.10); White Blood Count 11.70 K/ul (4.8-10.8)
[2025-10-01 07:45] LABS: Anion Gap 8.0 (3-11); Blood Urea Nitrogen 15.0 mg/dl (6-23); Calcium 8.8 mg/dl (8.6-10.3); Carbon Dioxide 24.0 mmol/L (21-32); Chloride 111.0 mmol/L (98-107); Creatinine Clr Calc Pharmacy 116.2 ml/min; Glucose 100.0 mg/dl (70-99(Fasting)); Potassium 3.7 mmol/L (3.5-5.1); Sodium 143.0 mmol/L (136-145)
--- NOTE | 2025-10-01 13:45 | Hospitalist Progress Note ---
Date of Service October 01, 2025 Assessment & Plan (1) Acute UTI: Plan: 1. Acute complicated E. coli UTI / cystitis in male patient, R/O gram negative gail-associated bacteremia. - clinically improving, continue rocephin, cx with e coli, transition to cefpodoxime on DC (2) Acute dehydration: Plan: 2. Acute dehydration. - Watch PO intake, resolving at this time, continue NS at 80cc/hr (3) Pneumonia: Plan: 3. Incidental finding of "Small consolidation in the scanned right middle lung lobe, please correlate clinically to rule out pneumonia." (as reported on 09/29/2025, 9:38am CT abd/pelvis with IV contrast). -Azithromycin 500mg PO x 3 days, currently day 2/3 Admission and Anticipated Discharge Date Admission Date: September 29, 2025 Subjective Patient is largely nonverbal. [facility]. With complicated PCI. Clinically doing well. No complaints per nursing. There is no caregiver in the room with him this morning so history is quite limited. Patient does seem to respond appropriately to examination and questioning. Denied pain. No visible discomfort. Watching television quietly. Cooperative with examination for the most part Physical Exam Constitutional: General: Comfortable, cooperative. Wide awake and alert. Not confused, lethargic, or obtunded. Patient speaks in brief 1-2 word answers this AM is HEENT: Normocephalic, atraumatic. PERRL. EOMI. MMM Heart: Regular rate and rhythm. NL S1 and S2 2/6 early peaking JAYME @ [facility] Lungs: Clear to auscultation. No audible expiratory wheeze, Abdomen: Soft, non-tender, non-distended. No rebound, guarding, Kumari's sign, or organomegaly. Extremities: No clubbing, cyanosis, or edema. 2+ pedal pulses bilaterally. Skin: No decubitus ulcer, pallor or discoloration Psych: Smiles appropriately. No flat affect. Results & Data Results & Data Vital Signs (Past 12 Hours) Vital Signs Temp Pulse Resp BP Pulse Ox O2 Del Method 10/01/25 08:00 Room Air 10/01/25 07:38 37.0 C 70 18 104/68 94 Room Air Laboratory Results 09/29/25 10:08 Aerobic Blood Culture - Preliminary Blood No growth in Aerobic bottle after 48 hours. Anaerobic Blood Culture - Preliminary No growth in Anaerobic bottle after 48 hours. 09/29/25 09:30 Aerobic Blood Culture - Preliminary Blood No growth in Aerobic bottle after 48 hours. Anaerobic Blood Culture - Preliminary No growth in Anaerobic bottle after 48 hours. 09/29/25 11:48 Urine Culture - Final Urine,Clean Catch Escherichia coli 10/01/25 10/01/25 07:06 07:03 WBC 11.70 H RBC 3.02 L Hgb 9.7 L Hct 28.7 L MCV 95.0 MCH 32.1 MCHC 33.8 RDW Std Deviation 50.4 H RDW Coeff of Millicent 14.6 H Plt Count 107 L MPV 11.0 Immature Gran % (Auto) 0.5 Neut % (Auto) 64.2 Lymph % (Auto) 30.7 [place] % (Auto) 3.7 Eos % (Auto) 0.7 Baso % (Auto) 0.2 Neut # (Auto) 7.52 H Lymph # (Auto) 3.59 H [place] # (Auto) 0.43 Eos # (Auto) 0.08 Baso # (Auto) 0.02 Immature Gran # (Auto) 0.06 Sodium 143 Potassium 3.7 Chloride 111 H Carbon Dioxide 24 Anion Gap 8 BUN 15 Creatinine 0.73 Est Cr Clr Drug Dosing 116.2 eGFR 110.15 BUN/Creatinine Ratio 20.5 H Glucose 100 H Lactate 0.6 Calcium 8.8 Procalcitonin 0.16 PG Care Time/CCT Total # of Minutes Spent Total Time Spent with Patient: Total time spent is greater than 50% in coordination of care (as documented) at patient's floor/unit and/or counseling patient: Coding Level of Care Code 06355 SUB INP/OBS CARE 2/35MIN Diagnoses Acute UTI N39.0 Acute dehydration E86.0 Pneumonia J18.9 Laterality: right Lung location: unspecified part of lung Pneumonia type: due to unspecified organism (3) Pneumonia Laterality: right Lung location: unspecified part of lung Pneumonia type: due to unspecified organism Qualified Code(s): J18.9 - Pneumonia, unspecified organism
[2025-10-01 22:47] VITALS: RESP 16; O2SAT 95
[2025-10-02 07:28] VITALS: BP 115/73; PULSE 59; TEMP 97.5
--- NOTE | 2025-10-02 12:59 | Discharge Summary ---
Discharge Summary Date of Service October 02, 2025 Principal Dx & Hospital Course #1 = Principal Diagnosis (1) Acute UTI: 1. Acute complicated E. coli UTI / cystitis in male patient, R/O gram negative gail-associated bacteremia. - clinically improving, continue rocephin, cx with e coli, transition to cefpodoxime on DC -Patient scheduled for elective lithotripsy on 10/15. I briefly reviewed the case with on-call urology here. No indication for a more prolonged course of antibiotics as well. No indication for further intervention based on hospitalization at this time. Will continue with 8 additional days of cefpodox christina as above. Have him follow-up as scheduled with urology (2) Acute dehydration: 2. Acute dehydration. - Volume expansion with normal saline, resume at the time of discharge r (3) Pneumonia: 3. Incidental finding of "Small consolidation in the scanned right middle lung lobe, please correlate clinically to rule out pneumonia." (as reported on 09/29/2025, 9:38am CT abd/pelvis with IV contrast). 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 In [facility] ER bed #B7, patient was afebrile @ 37.9 degrees Celsius, HR 90, RR 18, O2 sat 94% on room air, and BP 121/69 (09/29/2025, 9:30am). Exam was noted for overt rhinorrhea, but no pharyngeal erythema, edema, or exudative discharge. Chest was clear and non-tender to palpation, as was palpation of the bilateral flank(s). Discharge Exam General: Comfortable, cooperative. Wide awake and alert. Not confused, lethargic, or obtunded. Patient speaks in brief 1-2 word answers this AM is at recent baseline HEENT: Normocephalic, atraumatic. PERRL. EOMI. MMM Heart: Regular rate and rhythm. NL S1 and S2 2/6 early peaking JAYME @ [facility] Lungs: Clear to auscultation. No audible expiratory wheeze, Abdomen: Soft, non-tender, non-distended. No rebound, guarding, Kumari's sign, or organomegaly. Extremities: No clubbing, cyanosis, or edema. 2+ pedal pulses bilaterally. Skin: No decubitus ulcer, pallor or discoloration Psych: Smiles appropriately. No flat affect. Discharge Plan Discharge Items Patient Disposition: [facility] Reason For Visit: ACUTE CYSTITIS Discharge Diagnosis: Acute Cystitis Condition on Discharge: [facility] Concerns: Follow-up with urology as previously scheduled for lithotripsy on 10/15 Continue the full course of cefpodoxime, 8 additional days prescribed at the time of discharge Call return with any recurrent fevers, respiratory symptoms or pain. Activity: Resume your previous activity Non-emergency contact: Primary Care Provider Call non-emergency contact if: you have any medication questions, your symptoms worsen, your pain is not controlled and you have a fever Follow-up/Referrals: Joaquin Odonnell DO [Primary Care Provider] - 10/09/25 11:00 am Diet: Regular Addtl Attending Provider Instructions: Recheck UA/UA in 1-2 weeks Pending Studies at Discharge: No Stand-Alone Forms: My [facility], Smoking Cessation Skilled Items Patient informed of condition?: Yes DNR: No Discharge Level of Care: Other Communicable Disease: No Discharge Prognosis: Improving Lines: None Urinary Catheter: No Medications and DC Order Prescriptions: New cefpodoxime 200 mg tablet 200 mg PO BID 8 Days Qty: 16 0RF Rx Instructions: must administer with a meal/food Continued Linzess 72 mcg capsule 72 mcg PO QAM Qty: 31 11RF Rx Instructions: TAKE 1 CAPSULE BY MOUTH ONCE DAILY. (NOT A CYCLE MED PLEASE REORDER) docusate sodium [Dulcolax Stool Softener (dss)] 100 mg capsule 100 mg PO BID Qty: 60 11RF famotidine 40 mg tablet 40 mg PO QAM Qty: 30 11RF levocetirizine 5 mg tablet 5 mg PO HS Qty: 90 3RF ergocalciferol (vitamin D2) 1,250 mcg (50,000 unit) capsule 1,250 mcg PO Q7D Qty: 4 2RF phenobarbital 60 mg tablet 120 mg PO QPM Qty: 60 5RF fluticasone propionate [Flonase Allergy Relief] 50 mcg/actuation spray,suspension 2 spray INTNAS QAM Qty: 16 5RF Rx Instructions: administer into each nostril vitamin B complex-folic acid [B Complex 1 (with folic acid)] 0.4 mg tablet 1 tab PO DAILY Qty: 30 11RF cholecalciferol (vitamin D3) 50 mcg (2,000 unit) capsule 50 mcg PO DAILY Qty: 30 5RF fluoride (sodium) 1.1 % paste 1 applic dental BID ammonium lactate 12 % cream 1 appln TOP BID ibuprofen [Motrin IB] 200 mg tablet 200 mg PO .COMPLEX PRN (Reason: pain) Patient Comments: CONFIRMED W/ BRENDA AT [facility] ON 02/15/25 Rx Instructions: 200 mg orally Q4-6HOURS PRN; acetic acid 2 % solution 5 drp otic (ear) QAM Qty: 15 5RF Rx Instructions: Administer at 8 AM daily. Administer into both ears. desmopressin 0.2 mg tablet 0.2 mg PO HS Qty: 90 3RF guaifenesin [Mucinex] 600 mg tablet extended release 12hr 600 mg PO Q12H PRN (Reason: congestion) Qty: 20 0RF acetaminophen 500 mg Tablet 500 mg PO Q6H PRN (Reason: Pain/Fever) polyethylene glycol 3350 17 gram/dose powder 17 g PO BID PRN (Reason: Constipation) Rx Instructions: Continue until pt has BM then stop Clinere Ear Wax Removal 6.5 % drops 5 drp otic (ear) WK Rx Instructions: Apply every Wednesday Discharge Orders: Discharge Order (Routine); Ordered 10/02/25 Ordered By: Gilles Hannah/Other Patient Handouts: Urinary Tract Infections in Men Admission Data Admit Date/Time: 09/29/25 13:39 Attending Provider: Gilles Mares Admit Provider: Adam Nelson Primary Care Provider: Joaquin Odonnell Other Providers: Alex Avalos Other Interventions: Discharge Summary Assessment (RN) Last Done: 10/02/25 13:11 Hospital Stay Data Consultations 09/29/25 12:45 ED Decision to Admit Stat Diagnostic Imagining Performed 09/29/25 09:38 CT abd pelvis IV con only Stat Pending Results Patient Have Any Pending Studies at Discharge: No Discharge Instructions Given to Patient (Per Discharging Provider) Recheck UA/UA in 1-2 weeks Total Time Total Time Spent Total Time Spent (In Minutes): 35 minutes spent in reviewing case with urology in terms of antibiotic course and follow-up. Discussing with patient's mother at the time of discharge and update plan. Coding Level of Care Code 10902 INP/OBS DISCH >30 MIN Diagnoses Acute UTI N39.0 Acute dehydration E86.0 Pneumonia J18.9 Laterality: right Lung location: unspecified part of lung Pneumonia type: due to unspecified organism
== END 2025-10-02 13:47 | disposition home or self-care (01) | DRG 689 ==
LOC: ED 09:21 → 3W 13:39 → SUATTDRO 13:39 → 3W 15:06